=== PATIENT | female | born 1965 | race Caucasian/White ===

== ENCOUNTER 2023-07-18 09:57 | Outpatient (OUT) | payer OTHER, SELFPAY ==
[2023-07-18 10:58] LABS: Bilirubin Urine NEGATIVE (NEGATIVE); Blood Urine NEGATIVE (NEGATIVE); Clarity Urine CLEAR (CLEAR); Color Urine YELLOW (YELLOW); Glucose Urine UA NEGATIVE (NEGATIVE); Ketones Urine NEGATIVE (NEGATIVE); Leukocyte Esterase Urine NEGATIVE (NEGATIVE); Nitrite Urine NEGATIVE (NEGATIVE); Protein Urine NEGATIVE (NEG/TRACE); Urobilinogen Urine 0.2 EU/dL (0.2-1.0)
[2023-07-18 11:00] LABS: Creatinine Urine Random 195.04 mg/dL (20.00-300.00); Protein Creatinine Ratio Urine 0.14
[2023-07-18 11:06] LABS: Albumin Level 3.6 g/dL (3.4-5.0); Anion Gap 12.9; BUN Creatinine Ratio 16.7; Calcium 8.9 mg/dL (8.5-10.1); Carbon Dioxide 27.7 mmol/L (21.0-32.0); Chloride 102 mmol/L (98-107); Estimated GFR (African America 59 (>=60); Estimated GFR (Non-African Ame 49 (>=60); Glucose 96 mg/dL (74-106); Phosphorus 3.8 mg/dL (2.6-4.7); Potassium 3.6 mmol/L (3.5-5.1); Sodium 139 mmol/L (136-145)
== END 2023-07-18 09:58 | disposition home or self-care (01) ==
DX: I13.10 Hypertensive heart and chronic kidney disease without heart failure, with stage 1 through stage 4 chronic kidney disease, or unspecified chronic kidney disease (principal)
CPT/HCPCS: 36415; 80069; 81003; 82570; 84156

== ENCOUNTER 2023-11-08 13:43 | Outpatient (OUT) | payer OTHER, SELFPAY ==
--- NOTE | 2023-11-08 13:48 | XR_ITS ---
[facility] [id number] Patient Name: ERNST VEGA MRN: [id number] date: 1965 Sex: F Assigned Patient Location: [facility] Current Patient Location: Accession/Order Number: [id number] Exam Date: 11/08/2023 13:38 Report Date: 11/09/2023 08:52 At the request of: NON-STAFF PHYSICIAN Procedure: XR lumbar spine 6V w bending EXAMINATION: XR lumbar spine 6V w bending HISTORY: Acute Right Sided Back Pain ; exacerbation of chronic low back pain and right hip pain COMPARISON: CT L-spine 04/13/2019 FINDINGS: BONES: Moderate right convex curvature of lumbar spine. Mild grade 1 retrolisthesis of L2 on 3 and mild grade 1 anterior listhesis of L4 on 5, with both increasing slightly during flexion. Moderate degenerative facet arthropathy L3-4 through L5-S1. DISC SPACES: Marked narrowing L2-3. PARASPINOUS: Negative. No paraspinous abnormality is seen. OTHER: Negative. XR/XR lumbar spine 6V w bending IMPRESSION: 1. Moderate-marked degenerative changes of lumbar spine; suspect slight progression compared to prior study. Consider MRI for further evaluation. Electronically authenticated by: JOURDAN YAO Date: 11/09/2023 08:52
== END 2023-11-08 13:44 | disposition home or self-care (01) ==
LOC: RAD 13:43
DX: M54.41 Lumbago with sciatica, right side (principal); M81.0 Age-related osteoporosis without current pathological fracture; M51.36 Other intervertebral disc degeneration, lumbar region
CPT/HCPCS: 72114

== ENCOUNTER 2024-09-25 07:18 | Outpatient (OUT) | payer MEDICARE, OTHER, SELFPAY ==
--- OUTSIDE RECORDS SUMMARY | 2024-09-25 07:25 | XMS_ITS | CCD ---
Author Organization [facility] Care Team Providers Care Junior Systems Administrator Name Role Phone KAYE HERMOSILLO Attending Unavailable KAYE HERMOSILLO Primary Care Unavailable KAYE HERMOSILLO Admitting Unavailable DR JOURDAN YAO Consulting Unavailable KAYE HERMOSILLO Consulting Unavailable DO Gregg Alanis Attending Provider KAYE HERMOSILLO Primary Care Physician [phone] Josephine Lopez Unavailable Unavailable MD Phill Yates Attending Provider MD Hugo Yates Attending Provider NICK Hermosillo-Freda Biggs Primary Care Provider Bindu Kelly Unavailable Unavailable Sabrina Loyd MD Primary Care Provider KAYE HERMOSILLO Admitting Unavailable KAYE HERMOSILLO Attending Unavailable KAYE HERMOSILLO Referring Unavailable Brown, Los A Admitting Unavailable Brown, Los A Attending Unavailable Brown, Los A Referring Unavailable Brown, Los A Admitting Unavailable Brown, Los A Attending Unavailable Brown, Los A Referring Unavailable Brown, Los A Admitting Unavailable Brown, Los A Attending Unavailable Brown, Los A Referring Unavailable Brown, Los A Admitting Unavailable Brown, Los A Attending Unavailable Brown, Los A Referring Unavailable KAYE HERMOSILLO Admitting Unavailable KAYE HERMOSILLO Attending Unavailable KAYE HERMOSILLO Referring Unavailable NICK Hermosillo-C Kaye Primary Care Provider MD Roderick Betts Attending Provider MD Miguel Trinidad Attending Provider Miguel Trinidad Admitting Unavailable Miguel Trinidad Attending Unavailable Kaye Hermosillo Primary Care Unavailable Kaye Hermosillo Primary Care Unavailable Roderick Betts Admitting Unavailable Roderick Betts Attending Unavailable Roderick Betts Admitting Unavailable Roderick Betts Attending Unavailable Kaye Hermosillo Primary Care Unavailable Miguel Trinidad Admitting Unavailable Miguel Trinidad Attending Unavailable Kaye Hermosillo Primary Care Unavailable KAYE HERMOSILLO Attending Unavailable LOS GONZALEZ Referring Unavailable [place] GONZALEZ Referring Unavailable [place] GONZALEZ Attending Unavailable KAYE HERMOSILLO Attending Unavailable KAYE HERMOSILLO Attending Unavailable KAYE HERMOSILLO Attending Unavailable [place] G[place]Z Referring Unavailable [place] GONZALEZ A Attending Unavailable BROWNLOS A Referring Unavailable BROWNLOS A Attending Unavailable Allergies Allergy Classification Reported Allergen(s) Allergy Type Date of Onset Reaction(s) Facility (2 sources) Codeine; Translations: [codeine] Drug Allergy 5 [facility] Repository (11 sources) Codeine; Translations: [codeine] Drug Allergy 3 GI intolerance [facility] (9 sources) Iodinated Contrast Media Propensity to adverse reactions 3 [facility] Healthcare Work Phone: (1 source) No Known Medication Allergies; Translations: [No Known Medication Allergies] Propensity to adverse reactions (disorder) [facility] Repository Medications Current Medications Medication Drug Class(es) Dates Sig (Normalized) Sig (Original) acetaminophen 325 mg / oxyCODONE hydrochloride 5 mg oral tablet (6 sources) Opioid Agonist Start: 07-19-2023 End: 08-29-2023 Percocet 5 mg-325 mg oral tablet See Instructions, 40 tab(s), Refill(s) 0, 1-2 tab(s) Oral q4hr, [facility] #[id number], 160, cm, 07/06/23 11:00:00 EST, Height/Length Dosing, 86, kg, 07/06/23 11:00:00 EST, Weight Dosing Start Date: 07/19/23 Status: Ordered Start: 09-28-2022 Percocet 5 mg- 325 mg oral tablet See Instructions, 40 tab(s), Refill(s) 0, 1-2 tab(s) Oral q4hr, [facility] #[id number], 160, cm, 09/21/22 5:43:00 EST, Height/Length Dosing, 87.2, kg, 09/21/22 5:43:00 EST, Weight Dosing Start Date: 09/28/22 Status: Ordered amLODIPine 5 mg oral tablet (20 sources) Dihydropyridine Calcium Channel Chantelle Start: 02-22-2024 Amlodipine Active MG PO February 22, 2024 12:00am Start: 07-06-2023 take 2 tablets by mo uth once daily amLODIPine 2.5 mg Tab 5 mg = 2 tab(s), Oral, Daily, Refills(s) 0, High blood pressure Start Date: 07/06/23 Status: Ordered Start: 05-17-2023 End: 09-10-2025 take 1 tablet by mouth once daily amLODIPine (Norvasc) 5 MG tablet Indications: Essential hypertension (CMS/HCC) Take 1 tablet (5 mg) by mouth Daily 90 tablet 3 09/10/2024 09/10/2025 Active aspirin 81 mg delayed release oral tablet (20 sources) Platelet Aggregation Inhibitor, Nonsteroidal Anti-inflammatory Drug Start: 02-22-2024 Aspirin (Adult Lo w Dose Aspirin) 81 mg tablet,delayed release (DR/EC) Active 81 MG PO Daily February 22, 2024 12:00am Start: 05-15-2023 take 1 tablet by carlos alberto once daily aspirin 81 mg Oral EC Tab 81 mg = 1 tab(s), Oral, Daily, Refills(s) 0, Prophylaxis Start Date: 05/15/23 Status: Ordered ASPIRIN 81 PO Ta ke by mouth. Active ASPIRIN 81 PO Ta ke by mouth. 0 Active atorvastatin 40 mg oral tablet (20 sources) HMG-CoA Reductase Inhibitor Start: 02-22-2024 Atorvastatin Active MG PO February 22, 2024 12:00am Start: 09-20-2022 End: 02-12-2025 take 1 tablet by mouth in the morning atorvastatin (Lipitor) 40 MG tablet Indications: Mixed hyperlipidemia (CMS/HCC) , Pure hypercholesterolemia (CMS/HCC) , Screening for lipid disorders , Screening for heart disease Take 1 tablet (40 mg) by mouth in the morning. 90 tablet 3 02/13/2024 02/12/2025 Active celecoxib 100 mg oral capsule (7 sources) Nonsteroidal Anti-inflammatory Drug Start: 07-19-2023 take 1 capsule by mouth twice daily as needed for pain CeleBREX 100 mg Cap 100 mg = 1 cap(s), Oral, BID, PRN for pain, # 60 cap(s), Refills(s) 2, Pharmacy: [facility] #[id number], 160, cm, 07/06/23 11:00:00 EST, Height/Length Dosing, 86, kg, 07/06/23 11:00:00 EST, Weight Dosing Start Date: 07/19/23 Status: Ordered Start: 09-28-2022 take 1 capsule by [facility] twice daily as needed for pain CeleBREX 100 mg Cap 100 mg = 1 cap(s), Oral, BID, PRN for pain, # 60 cap(s), Refills(s) 0, Pharmacy: [facility] #[id number], 160, cm, 09/21/22 5:43:00 EST, Height/Length Dosing, 87.2, kg, 09/21/22 5:43:00 EST, Weight Dosing Start Date: 09/28/22 Status: Ordered cephalexin 500 mg oral capsule (7 sources) Cephalosporin Antibacterial Start: 08-06-2024 cephalexin (Keflex) 500 MG capsule Indications: History of right shoulder replacement Take 4 pills 30-60 mins before dental appointment with food 4 capsule 3 08/06/2024 Active Start: 07-19-2023 End: 07-26-2023 take 1 capsule by mouth every eight hours Keflex 500 mg Cap 500 mg = 1 cap(s), Oral, q8hr, X 7 day(s), # 21 cap(s), Refills(s) 0, Pharmacy: [facility] #[id number], 160, cm, 07/06/23 11:00:00 EST, Height/Length Dosing, 86, kg, 07/06/23 11:00:00 EST, Weight Dosing Start Date: 07/19/23 Stop Date: 07/26/23 Status: Ordered Start: 09-28-2022 End: 10-05-2022 take 1 capsule by mouth every eight hours Keflex 500 mg Cap 500 mg = 1 cap(s), Oral, q8hr, X 7 day(s), # 21 cap(s), Refills(s) 0, Pharmacy: [facility] #[id number], 160, cm, 09/21/22 5:43:00 EST, Height/Length Dosing, 87.2, kg, 09/21/22 5:43:00 EST, Weight Dosing Start Date: 09/28/22 Stop Date: 10/05/22 Status: Ordered docusate sodium 100 mg oral capsule (6 sources) Start: 07-19-2023 End: 08-29-2023 take 1 capsule by mouth twice daily as needed for constipation Colace 100 mg Cap 100 mg = 1 cap(s), Oral, BID, PRN for constipation, # 20 cap(s), Refills(s) 0, Pharmacy: [facility] #[id number], 160, cm, 07/06/23 11:00:00 EST, Height/Length Dosing, 86, kg, 07/06/23 11:00:00 EST, Weight Dosing Start Date: 07/19/23 Status: Ordered Start: 09-28-2022 take 1 capsule by [facility] twice daily as needed for constipation Colace 100 mg Cap 100 mg = 1 cap(s), Oral, BID, PRN for constipation, # 20 cap(s), Refills(s) 0, Pharmacy: [facility] #[id number], 160, cm, 09/21/22 5:43:00 EST, Height/Length Dosing, 87.2, kg, 09/21/22 5:43:00 EST, Weight Dosing Start Date: 09/28/22 Status: Ordered FLUoxetine 20 mg oral capsule (20 sources) Serotonin Reuptake Inhibitor Start: 02-22-2024 take 30 mg by mouth once daily Fluoxetine Active 30 MG PO Daily February 22, 2024 12:00am Start: 02-22-2024 Fluoxetine Act kerline MG PO February 22, 2024 12:00am Start: 10-19-2023 End: 09-10-2025 take 1 capsule by mouth once daily FLUoxetine (PROzac) 10 MG capsule Indications: Panic disorder (CMS/HCC) , Mild episode of recurrent major depressive disorder (HCC) (CMS/HCC) Take 1 capsule (10 mg) by mouth Daily 90 capsule 3 09/10/2024 09/10/2025 Active Start: 10-19-2023 End: 09-10-2025 take 1 capsule by mouth once daily FLUoxetine (PROzac) 20 MG capsule Indications: Panic disorder (CMS/HCC) , Mild episode of recurrent major depressive disorder (HCC) (CMS/HCC) Take 1 capsule (20 mg) by mouth Daily 90 capsule 3 09/10/2024 09/10/2025 Active Start: 06-07-2023 take 1 capsule by mo [facility] in the morning FLUoxetine (PROzac) 20 MG capsule Indications: Panic disorder (CMS/HCC) , Mild episode of recurrent major depressive disorder (HCC) (CMS/HCC) Take 1 capsule (20 mg) by mouth in the morning. 30 capsule 0 06/07/2023 Active Start: 05-15-2023 End: 10-03-2023 take 1 capsule by mouth once daily FLUoxetine 10 mg Cap 10 mg = 1 cap(s), Oral, Daily, Refills(s) 0, Anxiety Start Date: 05/15/23 Status: Ordered Start: 09-20-2022 take 1 capsule by mo uth once daily FLUoxetine 20 mg Cap 20 mg = 1 cap(s), Oral, Daily, Refills(s) 0, Anxiety Start Date: 09/20/22 Status: Ordered hydroCHLOROthiazide 25 mg oral tablet (1 source) Thiazide Diuretic Start: 09-20-2022 take 1 tablet by mouth once daily hydrochlorothiazide 25 mg Tab 25 mg = 1 tab(s), Oral, Daily, Refills(s) 0, High blood pressure Start Date: 09/20/22 Status: Ordered hydrOXYzine pamoate 25 mg oral capsule (3 sources) Antihistamine Start: 08-02-2023 take 1 capsule by mouth once daily at bedtime as needed for anxiety hydrOXYzine pamoate (Vistaril) 25 MG capsule Indications: Panic disorder (CMS/HCC) , Anxiety , PTSD (post-traumatic stress disorder) (CMS/HCC) TAKE 1 CAPSULE BY MOUTH ONCE EVERYDAY AT BEDTIME NEEDED FOR ANXIETY 30 capsule 0 08/02/2023 Active 24 hr metoprolol succinate 25 mg extended release oral tablet (20 sources) beta-Adrenergic Chantelle Start: 02-22-2024 Metoprolol Succinate Active MG PO February 22, 2024 12:00am Start: 01-02-2024 End: 04-03-2024 take 1 tablet by mouth once daily metoprolol succinate XL (Toprol-XL) 25 MG 24 hr tablet Indications: Essential hypertension (CMS/HCC) TAKE 1 TABLET BY MOUTH ONCE A DAY *DO NOT CRUSH OR CHEW* 90 tablet 1 04/03/2024 Active Start: 09-05-2023 End: 10-05-2023 take 1 tablet by mouth every twenty-four hours in the morning metoprolol succinate XL (Toprol-XL) 25 MG 24 hr tablet Indications: Essential hypertension (CMS/HCC) Take 1 tablet (25 mg) by mouth in the morning. Do not crush or chew.. 30 tablet 0 09/05/2023 10/05/2023 Active Start: 08-02-2023 End: 09-02-2023 take 1 tablet by mouth every twenty-four hours in the morning metoprolol succinate XL (Toprol-XL) 25 MG 24 hr tablet Indications: Essential hypertension (CMS/HCC) TAKE 1 TABLET (25 MG) BY MOUTH IN THE MORNING . DO NOT CRUSH OR CHEW 30 tablet 0 08/02/2023 09/02/2023 Discontinued (Reorder) Start: 05-15-2023 take 1 tablet by carlos alberto th once daily metoprolol 25 mg ER Tab 25 mg = 1 tab(s), Oral, Daily, Refills(s) 0, High blood pressure Start Date: 05/15/23 Status: Ordered ondansetron 4 mg oral tablet (1 source) Serotonin-3 Receptor Antagonist Start: 09-28-2022 take 1 tablet by mouth every eight hours as needed for nausea Zofran ODT 4 mg Tab 4 mg = 1 tab(s), Oral, q8hr, PRN Nausea/Vomiting, # 30 tab(s), Refills(s) 0, Pharmacy: [facility] #[id number], 160, cm, 09/21/22 5:43:00 EST, Height/Length Dosing, 87.2, kg, 09/21/22 5:43:00 EST, Weight Dosing Start Date: 09/28/22 Status: Ordered oxaprozin 600 mg oral tablet (1 source) Nonsteroidal Anti-inflammatory Drug Start: 05-15-2023 take 1 tablet by mouth twice daily oxaprozin 600 mg Tab 600 mg = 1 tab(s), Oral, BID, Refills(s) 0, Pain Start Date: 05/15/23 Status: Ordered spironolactone 25 mg oral tablet (1 source) Aldosterone Antagonist Start: 05-15-2023 take 1 tablet by mouth once daily spironolactone 25 mg Tab 25 mg = 1 tab(s), Oral, Daily, Refills(s) 0, High blood pressure Start Date: 05/15/23 Status: Ordered tiZANidine 4 mg oral tablet (15 sources) Central alpha-2 Adrenergic Agonist Start: 02-22-2024 Tizanidine Active MG PO February 22, 2024 12:00am Start: 10-05-2023 take 1 tablet by carlos alberto th at bedtime tiZANidine (Zanaflex) 4 MG tablet Take 4 mg by mouth at bedtime 10/05/2023 Active traMADol hydrochloride 50 mg oral tablet (16 sources) Opioid Agonist Start: 02-22-2024 Tramadol Activ e MG PO February 22, 2024 12:00am Start: 10-12-2023 traMADol (Ultr am) 50 MG tablet 10/12/2023 Active Start: 05-15-2023 tramadol 1 tab , Oral, PRN as needed for pain, Refills(s) 0 Start Date: 05/15/23 Status: Ordered Completed/Discontinued Medications Medication Drug Class(es) Dates Sig (Normalized) Sig (Original) LORazepam 1 mg oral tablet (14 sources) Benzodiazepine Start: 02-22-2024 End: 03-19-2024 Lorazepam Discontinued MG PO February 22, 2024 12:00am March 19, 2024 6:53am Start: 12-08-2023 take 1 tablet by mouth once LO Razepam (Ativan) 0.5 MG tablet Indications: Cervical stenosis of spinal canal Take 1 tablet (0.5 mg) by mouth 1 time for 1 dose Take 30 minutes before MRI 1 tablet 12/08/2023 Active Problems Active Problems Problem Classification Problem Date Documented Date Episodic/Chronic Acquired foot deformities (9 sources) Acquired hallux valgus; Translations: [Hallux valgus (acquired), unspecified foot] Onset: 1 03-21-2023 Chronic Adjustment disorders (9 sources) Adjustment disorder with anxious mood; Translations: [Adjustment disorder with anxiety] Onset: 8 03-21-2023 Chronic Anxiety disorders (19 sources) Anxiety; Translations: [Anxiety disorder, unspecified] Onset: 8 09-20-2022 Chronic Disorders of lipid metabolism (20 sources) Hyperlipidemia; Translations: [Hyperlipidemia, unspecified] Onset: 7 03-21-2023 Chronic Essential hypertension (20 sources) Hypertensive disorder; Translations: [Essential hypertension] Onset: 0 09-20-2022 Chronic Malaise and fatigue (9 sources) Fatigue; Translations: [Chronic fatigue, unspecified] Onset: 7 03-21-2023 Chronic Miscellaneous mental health disorders (11 sources) Primary insomnia; Translations: [Primary insomnia] Onset: 7 03-21-2023 Chronic Mood disorders (11 sources) Recurrent major depressive episodes, mild ; Translations: [Major depressive disorder, recurrent, mild] Onset: 3 03-21-2023 Chronic Osteoarthritis (20 sources) Arthritis; Translations: [Unspecified osteoarthritis, unspecified site] Onset: 8 Resolved: 3 12-24-2022 Chronic Osteoporosis (6 sources) Osteoporosis; Translations: [Age-related osteoporosis without current pathological fracture] Onset: 4 11-02-2023 Chronic Other bone disease and musculoskeletal deformities (1 source) Other specified disorders of bone density and structure, left forearm; Translations: [Other specified disorders of bone density and structure, left forearm] Onset: 4 Episodic Other congenital anomalies (9 sources) Congenital valgus deformity of foot; Translations: [Other congenital valgus deformities of feet] Onset: 3 03-21-2023 Chronic Other congenital anomalies (9 sources) Talipes planus; Translations: [Other congenital valgus deformities of feet] Onset: 1 03-21-2023 Chronic Other connective tissue disease (1 source) Nontraumatic complete rupture of rotator cuff of left shoulder; Translations: [Complete rotator cuff tear or rupture of left shoulder, not specified as traumatic] Onset: 3 Episodic Other connective tissue disease (9 sources) Trochanteric bursitis; Translations: [Trochanteric bursitis, right hip] 02-22-2024 Episodic Other connective tissue disease (11 sources) Trochanteric bursitis, right hip; Translations: [Enthesopathy of hip region] 02-22-2024 Episodic Other diseases of kidney and ureters (4 sources) Kidney disease 07-06-2023 Episodic Other nervous system disorders (16 sources) Chronic pain; Translations: [Other chronic pain] Onset: 7 03-21-2023 Chronic Other nervous system disorders (12 sources) Other chronic pain; Translations: [Other chronic pain] Onset: 4 03-04-2024 Chronic Other non-traumatic joint disorders (1 source) Pain in left shoulder; Translations: [PAIN IN LEFT SHOULDER] Onset: 2 Episodic Other non-traumatic joint disorders (6 sources) Shoulder pain 09-20-2022 Episodic Other non-traumatic joint disorders (1 source) Pain in right hip; Translations: [Pain in right hip] Onset: 4 Episodic Other non-traumatic joint disorders (2 sources) Pain of left shoulder joint; Translations: [Pain in left shoulder] 08-06-2024 Episodic Other nutritional; endocrine; and metabolic disorders (9 sources) Obese class I; Translations: [Obesity, unspecified] Onset: 1 03-21-2023 Chronic Other nutritional; endocrine; and metabolic disorders (9 sources) Obesity; Translations: [Obesity, unspecified] Onset: 2 03-21-2023 Chronic Other nutritional; endocrine; and metabolic disorders (5 sources) History of hypercholesterolemia 05-15-2023 Episodic Other screening for suspected conditions (not mental disorders or infectious disease) (7 sources) Encounter for screening mammogram for malignant neoplasm of breast; Translations: [Patient encounter status] Onset: 2 09-10-2024 Episodic Residual codes; unclassified (6 sources) Postmenopausal state 09-20-2022 Episodic Rheumatoid arthritis and related disease (13 sources) Rheumatoid arthritis; Translations: [Rheumatoid arthritis, unspecified] Onset: 1 03-21-2023 Chronic Spondylosis; intervertebral disc disorders; other back problems (19 sources) Disorder of joint of spine; Translations: [Other spondylosis with radiculopathy, lumbar region] 03-04-2024 Chronic Spondylosis; intervertebral disc disorders; other back problems (20 sources) Lumbar radiculopathy; Translations: [Radiculopathy, lumbar region] Onset: 6 12-24-2022 Episodic Unclassified (9 sources) Patient on antidepressant monitoring plan Onset: 3 07-05-2023 Unclassified (9 sources) Baseline PHQ-9 Onset: 07-05-2023 Past or Other Problems Problem Classification Problem Date Documented Date Episodic/Chronic Acquired foot deformities (9 sources) Bunion; Translations: [Bunion of unspecified foot] Onset: 06-29-2021 03-21-2023 Episodic Coma; stupor; and brain damage (9 sources) Drowsy; Translations: [Somnolence] Onset: 05-22-2017 03-21-2023 Episodic Conditions associated with dizziness or vertigo (9 sources) Dizziness; Translations: [Dizziness and giddiness] Onset: 05-22-2017 03-21-2023 Episodic Noninfectious gastroenteritis (9 sources) Gastroenteritis; Translations: [Noninfective gastroenteritis and colitis, unspecified] Onset: 03-22-2016 03-21-2023 Episodic Other connective tissue disease (9 sources) Tear of right rotator cuff; Translations: [Unspecified rotator cuff tear or rupture of right shoulder, not specified as traumatic] Onset: 12-24-2022 12-24-2022 Episodic Other connective tissue disease (20 sources) Tear of left rotator cuff; Translations: [Unspecified rotator cuff tear or rupture of left shoulder, not specified as traumatic] Onset: 03-13-2022 Resolved: 12-24-2022 03-21-2023 Episodic Other connective tissue disease (18 sources) Impingement syndrome of left shoulder region; Translations: [Impingement syndrome of left shoulder] Onset: 05-29-2017 Resolved: 12-24-2022 03-21-2023 Episodic Other connective tissue disease (9 sources) Full thickness rotator cuff tear; Translations: [Complete rotator cuff tear or rupture of unspecified shoulder, not specified as traumatic] Onset: 12-24-2022 Resolved: 12-24-2022 12-24-2022 Episodic Other lower respiratory disease (9 sources) Snoring; Translations: [Snoring] Onset: 05-22-2017 03-21-2023 Episodic Other non-traumatic joint disorders (13 sources) Pain in right shoulder; Translations: [Pain in joint, shoulder region] Onset: 12-06-2021 Episodic Other non-traumatic joint disorders (9 sources) Shoulder joint pain; Translations: [Pain in unspecified shoulder] Onset: 05-29-2017 03-21-2023 Episodic Sprains and strains (9 sources) Injury of superior glenoid labrum of shoulder joint; Translations: [Superior glenoid labrum lesion of unspecified shoulder, initial encounter] Onset: 12-24-2022 Resolved: 12-24-2022 12-24-2022 Episodic Results Test Name Value Interpretation Reference Range Facility XR Shoulder - left 2 Viewson 08-07-2024 Imaging Result: Two views, AP/axillary bilateral shoulder(s) taken today and saved to the permanent medical record are reviewed. Prosthesis is unchanged in position and alignment. No signs of prosthetic wear or loosening. No periprosthetic fractures. [facility] XR Shoulder - right 2 Viewso n 08-07-2024 Imaging Result: Two views, AP/axillary bilateral shoulder(s) taken today and saved to the permanent medical record are reviewed. Prosthesis is unchanged in position and alignment. No signs of prosthetic wear or loosening. No periprosthetic fractures. [facility] No Panel Informationon 08-06 Radiology Study observation (narrative) [facility] XR hip RT min 2V(w/wo pelvis )*on 03-26-2024 XR hip RT min 2V(w/wo pelvis)* [facility] [address] [place] [address] XRay Report Signed Patient: Ernst Vega MR#: [id number] : 1965 Acct:[id number] Age/Sex: 58 / F ADM Date: 03/26/24 Loc: [facility] Room: Type: [facility] Attending Dr: Miguel Trinidad MD Copies to: Miguel Trinidad MD Ordering Provider: Miguel Trinidad MD Date of Service: 03/26/24 XR/XR hip RT min 2V(w/wo pelvis)*: G89.29 - Other chronic pain RIGHT HIP - 2 views: CLINICAL HISTORY: Right hip pain for 2 years. COMPARISON: None FINDINGS: Mild degenerative changes of the hips without acute bony process. Additional degenerative changes are seen involving the visualized lower lumbar spine and SI joints. XR/XR hip RT min 2V(w/wo pelvis)* IMPRESSION: MILD DEGENERATIVE CHANGES OF THE HIPS WITHOUT ACUTE BONY PROCESS.. Impression dictated by: Malick Hollis Jr., D.O.03/26/2024 2:26 PM Dictation Location: [facility] Transcribed By: CATALINA 03/26/24 1426 Dictated By: Malick Hollis Jr, DO 03/26/24 1425 Signed By: 03/26/24 1426 Normal [facility] XR cerv spine AP/LAT/FLX/EXT on 02-29-2024 XR cerv spine AP/LAT/FLX/EXT [facility] [address] [place] [address] XRay Report Signed Patient: Ernst Vega MR#: [id number] : 1965 Acct:[id number] Age/Sex: 58 / F ADM Date: 02/29/24 Loc: XD Room: Type: [facility] Attending Dr: Roderick Betts MD Copies to: Roderick Betts MD Ordering Provider: Roderick Betts MD Date of Service: 02/29/24 XR/XR cerv spine AP/LAT/FLX/EXT: M54.2 - Cervicalgia CERVICAL SPINE 4 views: CLINICAL HISTORY: Neck pain and stiffness for 2 years getting worse. COMPARISON: None FINDINGS: Bones are grossly demineralized. Moderate spondylosis C5-C7 with endplate and facet joint degenerative changes. No pathological motion on flexion or extension views. No prevertebral soft tissue swelling. Visualized lung apices are clear. XR/XR cerv spine AP/LAT/FLX/EXT IMPRESSION: MODERATE SPONDYLOSIS C5-C7. Impression dictated by: Malick Hollis Jr., D.O.02/29/2024 3:05 PM Dictation Location: [place] [address] Transcribed By: CATALINA 02/29/24 1505 Dictated By: Malick Hollis Jr, DO 02/29/24 1504 Signed By: 02/29/24 1505 Normal [facility] MRI Spine Cervical w/o Contr nehemias 12-15-2023 MRI Spine Cervical w/o Contrast Exam Date/Time: 12/12/2023 18:03 EDT Reason for Exam: M48.02 Report IMPRESSION: Multilevel degenerative changes cervical spine, worst at C5-C6 and C6-C7, as discussed. EXAMINATION: MRI Spine Cervical w/o Contrast HISTORY: Hand numbness and tingling for one week. Neck pain. Denies prior neck surgery. TECHNIQUE: Routine cervical spine MR protocol without gadolinium. COMPARISON: None. RESULT: CERVICAL: Counting reference: Craniocervical junction. Anatomic Variants: None. Alignment: Straightening of the cervical lordosis. Minimal retrolisthesis of C6 on C7. Minimal anterolisthesis of C7 on T1. Craniocervical junction: Maintained with degenerative changes. Cord: The cervical spinal cord is within normal limits of signal intensity and morphology. Bone marrow signal/fracture: No evidence for acute or chronic fracture. No destructive osseous process. Cervical soft tissues: Subcentimeter nodule right thyroid, not requiring follow-up per criteria. C2-C3: No significant canal or foraminal narrowing. C3-C4: Disc bulge. Facet/uncovertebral degenerative changes. Mild left foraminal narrowing without significant canal or right foraminal narrowing. C4-C5: Broad-based disc bulge. Endplate osteophytes. Facet/uncovertebral degenerative changes. Moderate left and mild to moderate right foraminal narrowing without significant canal narrowing. C5-C6: Broad-based disc bulge, asymmetric to the left. Endplate osteophytes. Report Facet/uncovertebral degenerative changes. Severe canal narrowing with severe bilateral foraminal narrowing, worse on the left. Abutment/flattening of the cord without cord signal abnormality. C6-C7: Broad-based disc bulge. Endplate osteophytes. Facet/uncovertebral degenerative changes. Severe canal narrowing with severe bilateral foraminal narrowing. Abutment of the cord without cord signal abnormality. C7-T1: Facet/intravertebral degenerative changes without significant canal or foraminal narrowing. Upper thoracic spine: Visualized upper thoracic canal and foramina without significant narrowing. Ordering Provider: , FINAL REPORT Dictated: 12/15/2023 2:12 pm Robin Payan MD. Signed (Electronic Signature): 12/15/2023 2:12 pm Signed by: Robin Payan MD Transcribed by: UMAIR Technologist: DONAVON Technical Comments None Normal [facility] Consent for Treatmenton 11-28 Consent for Treatment [id number] Normal [facility] RAD - MRI Screening Formon 0 12-12-2023 RAD - MRI Screening Form [id number] Normal [facility] Physician Orderon 12-11-2023 Physician Order [id number]#[id number] Normal [facility] MRI Spine Lumbar w/o Contras ton 12-07-2023 MRI Spine Lumbar w/o Contrast Exam Date/Time: 12/04/2023 18:16 EDT Reason for Exam: M54.41 M81.0 M54.16 M54.36 Report IMPRESSION: DEGENERATIVE CHANGES OF THE LUMBAR SPINE DETAILED. EXAM: MRI of the lumbar spine without contrast History: Low back pain with right-sided sciatica Technique: Multiplanar multisequence MRI of the lumbar spine was obtained without intravenous contrast. Comparison: None available Findings: Localizer images demonstrate cervical spine degenerative changes with suspected high-grade spinal canal stenosis, findings that would be better evaluated with MRI of the cervical spine without contrast. The conus medullaris ends normally. The alignment of the lumbar spine is anatomic. The vertebral body heights are well maintained. There is no aggressive bone marrow signal abnormality. Disc desiccation throughout the lumbar spine. Moderate intervertebral disc height loss at L2-L3 and L4-L5 and mild intervertebral disc height loss elsewhere throughout the lumbar spine. L1-L2: Small disc bulge. Mild facet arthropathy. Mild bilateral neuroforaminal stenosis. Mild spinal canal stenosis. L2-L3: Approximate 3 mm retrolisthesis of L2 on L3. Small disc bulge. Moderate to advanced facet arthropathy. Moderate right and moderate to severe left neuroforaminal stenosis. Mild spinal canal stenosis. L3-L4: Small disc bulge. Mild facet arthropathy. Severe right and mild left neuroforaminal stenosis. No spinal canal stenosis. L4-L5: Minimal anterolisthesis of L4 on L5 secondary to advanced facet arthropathy. Small disc bulge. Ligamentum flavum thickening. Severe spinal canal stenosis. Moderate right and mild left neuroforaminal stenosis. L5-S1: Small disc bulge with tiny central annular fissure. Advanced degenerative changes. Mild bilateral neuroforaminal stenosis. Mild spinal canal stenosis. Visualized paravertebral soft tissues appear within normal limits as visualized. Report Ordering Provider: , FINAL REPORT Dictated: 12/07/2023 2:51 pm Todd Aguilar DO Signed (Electronic Signature): 12/07/2023 2:51 pm Signed by: Todd Aguilar DO Transcribed by: UMAIR Technologist: DONAVON Technical Comments None Normal [facility] Consent for Treatmenton 05- Consent for Treatment [id number]#1.00TIFF Normal [facility] RAD - MRI Screening Formon 0 12-04-2023 RAD - MRI Screening Form [id number]#1.00TIFF [facility] Physician Orderon 11-30-2023 Physician Order [id number]#1.00TIFF [facility] XR Shoulder - right 2 Viewso n 09-04-2023 Imaging Result: Two views, AP/axillary, right shoulder taken today and saved to the permanent medical record are reviewed. Prosthesis is unchanged in position and alignment. No signs of prosthetic wear or loosening. No periprosthetic fractures. [facility] XR Shoulder - right 2 Viewso n 08-29-2023 Radiology Study observation (narrative) [facility] IntraOperative Documentson 0 08-03-2023 IntraOperative Documents [id number]#1.00TIFF [facility] Main OR Intraoperative Recor don 07-25-2023 Main OR Intraoperative Record IntraOp Document Type FT Summary Primary Physician: Los Gonzalez DO Finalized Date/Time: 07/25/23 10:46:34 Pt. Name: ERNST VEGA/Sex: 1965 Female Med Rec #: [id number] Physician: Los Gonzalez DO Financial #: [id number] Pt. Type: A Room/Bed: Admit/Disch: 07/19/23 06:25:38 - 07/19/23 13:15:00 Institution: Case Times FT Entry 1 Patient Times In Room 07/19/23 08:50:00 Out Room 07/19/23 10:56:00 Procedure Times Start 07/19/23 09:35:00 Stop 07/19/23 10:46:00 Anesthesia Times Start 07/19/23 08:50:00 Stop 07/19/23 10:56:00 Block Timeout w/ 07/19/23 08:35:00 Anesthesia Last Modified By: Tiana SILVESTRE, Jayne Steele 07/19/23 10:56:43 General Comments: BLOCK DONE BY DR. BECKETT AT 0835, ASSISTED BY Jean HARRIS RN; HR= 64, O2= 98%; TRANSPORTED DIRECTLY TO OR AFTER THE BLOCK WITH SIDE RAILS UP -Jean HARRIS RN 07/25/23 Chart opened to review and send charges [facility] Case Attendance FT Entry 1 Entry 2 Entry 3 Case Attendee Natalee JOHNSON, Arthur Gonzalez DO, Los Lynn OFFSET PRINTING OPERATOR, Iván Role Performed Anesthesiologist Surgeon - Primary OFFSET PRINTING OPERATOR/SA Office Administration Time In 07/19/23 08:50:00 07/19/23 08:50:00 07/19/23 08:50:00 Time Out 07/19/23 10:56:00 07/19/23 10:56:00 07/19/23 10:56:00 Procedure SHOULDER TOTAL SHOULDER TOTAL SHOULDER TOTAL ARTHROPLASTY(Right) ARTHROPLASTY(Right) ARTHROPLASTY(Right) Comments DR. BECKETT SUPERVISING Last Modified By: Tiana RN, Jayne Harris RN, Jayne Harris RN, Jayne Steele 07/19/23 Shakira Steele 07/19/23 Shakira P 07/19/23 10:56:44 10:56:44 10:56:44 Entry 4 Entry 5 Entry 6 Case Attendee Tiana SILVESTRE, Janye Trinh OFFSET PRINTING OPERATOR, Anusha Blackwell Role Performed Assembler Corncob Pipes - Primary Staff - Other Staff - Other Time In 07/19/23 08:50:00 07/19/23 08:50:00 07/19/23 08:50:00 Time Out 07/19/23 10:56:00 07/19/23 10:56:00 07/19/23 10:56:00 Procedure SHOULDER TOTAL SHOULDER TOTAL SHOULDER TOTAL ARTHROPLASTY(Right) ARTHROPLASTY(Right) ARTHROPLASTY(Right) Comments 2ND SCRUB 3RD SCRUB Last Modified By: Tiana SILVESTRE, Jayne Harris RN, Jayne Harris RN, Jayne Steele 07/19/23 Shakira Steele 07/19/23 Shakira Steele 07/19/23 10:56:44 10:56:44 10:56:44 Entry 7 Case Attendee Anjali Gooden RN Role Performed Staff - Other Time In 07/19/23 08:50:00 Time Out 07/19/23 09:30:00 Procedure SHOULDER TOTAL ARTHROPLASTY(Right) Comments HELPING IN ROOM Last Modified By: Tiana SILVESTRE, Jayne Steele 07/19/23 10:56:44 General Comments: NIKO SANDERS - SCRUB PRIMARY; CUONG DAN and EVELINA CALDERA PRESENT FOR CASE -VReema HARRIS RNbuckle gluer Protocols FT Pre-Care Text: Implements protective measures prior to operative or invasive procedure, confirms identity before the operative or invasive procedure, verifies operative procedure, surgical site, and laterality Entry 1 Procedure(s) SHOULDER TOTAL Patient Identity Birthday, Blood Band, ARTHROPLASTY(Right) Verified (select at ID Band Check, Patient least 2): Participation Consents / H and P Anesthesia Consent, Operative Site Present Verified HandP, Surgery/Procedure Marking Verified Consent, Transfusion Consent Surgical Site Yes Laterality Verified Yes Verified Procedure Verified Yes Correct Patient Yes Position Verified Availability Equipment, Implant, Prep Dry n/a Verified (If Medication Applicable) PreOp Antibiotic Yes Time Out Los Gonzalez DO A, Given Participants Arthur England Wilhelm CST, Tiana Minor RN, Jayne Steele, Ziggy HOLLEY, Edmund Peralta Madison A Time Out Complete 07/19/23 09:34:00 Outcomes Met? Yes Last Modified By: Tiana SILVESTRE, Jayne Steele 07/19/23 09:46:21 Post-Care Text: The patient is free from signs and symptoms of injury caused by extraneous objects Allergy Information FT Pre-Care Text: Verifies allergies Entry 1 Allergies Reviewed? Yes Allergies Reviewed Self/Patient With Outcomes Met? Yes Last Modified By: Tiana SILVESTRE, Jayne Steele 07/19/23 09:46:33 Post-Care Text: The patient received appropriate medication(s) safely administered during the perioperative period Surgical Procedures FT Entry 1 Procedure Description Procedure SHOULDER TOTAL Modifiers Right ARTHROPLASTY Surgeon Description RIGHT REVERSE TOTAL SHOULDER ARTHROPLASTY Primary Procedure Yes Primary Surgeon Los Gonzalez DO Start 07/19/23 09:35:00 Stop 07/19/23 10:46:00 Anesthesia Type General Surgical Service Orthopedics Wound Class 1 - Clean Last Modified By: Tiana SILVESTRE, Jayne Shakira Ivette 07/19/23 10:46:40 General Case Data FT Pre-Care Text: Classifies surgical wound, implements aseptic technique, initiates traffic control Entry 1 Case Information OR OR 7 FT Case Level Level 6 Wound Class 1 - Clean Specialty Orthopedics ASA Class 2 Preop Diagnosis RIGHT SHOULDER Postop Same As Preop Yes OSTEOARTHRITIS Postop Diagnosis RIGHT SHOULDER Outcomes Met? Yes O (more content not included)... Normal [facility] Progress Note-Physicianon Progress Note-Physician Patient: ERNST VEGA Age: 57 years Sex: Female : 1965 Associated Diagnoses: None Author: Bob Beckett Jr, DO Postoperative Information Postoperative disposition: Postoperative disposition: To PACU. Optimetrix number: Optimetrix number [phone]. Anesthetic utilized: General. Health Status Allergies: Allergic Reactions (Selected) No Known Medication Allergies Physical Examination Vital Signs 07/19/2023 13:14 EST Heart Rate Monitored 75 bpm SpO2 94 % 07/19/2023 13:13 EST Respiratory Rate 20 br/min 07/19/2023 13:11 EST Systolic Blood Pressure 118 mmHg Diastolic Blood Pressure 79 mmHg Mean Arterial Pressure, Monitered 92 mmHg 07/19/2023 13:00 EST Heart Rate Monitored 84 bpm Respiratory Rate Monitored 20 br/min Systolic Blood Pressure 118 mmHg Diastolic Blood Pressure 79 mmHg SpO2 94 % 07/19/2023 12:02 EST Heart Rate Monitored 63 bpm SpO2 91 % 07/19/2023 12:01 EST Systolic Blood Pressure 154 mmHg HI Diastolic Blood Pressure 81 mmHg Mean Arterial Pressure, Monitered 105 mmHg 07/19/2023 12:01 EST Respiratory Rate 16 br/min 07/19/2023 11:25 EST Temperature Temporal Artery 36.4 DegC Heart Rate Monitored 73 bpm Respiratory Rate Monitored 14 br/min Systolic Blood Pressure 137 mmHg Diastolic Blood Pressure 82 mmHg Blood Pressure Location Left arm Mean Arterial Pressure, Cuff 100 mmHg SpO2 93 % Pain Assessment: Controlled. General: Awake, Alert, Appropriate. Respiratory: Adequate air exchange. Cardiovascular: Stable, Normal peripheral perfusion. Neurological: Normal sensory function, Normal motor function. Assessment Anesthetic outcome No anesthetic complications noted. Adequate pain relief. able to void without difficulty, able to ambulate with assist, tolerating PO intake, no N/V. Review / Management Condition: Stable. Plan Transfer/Discharge: Transfer/Discharge Discharge when meets criteria ( To home ). Normal [facility] Comment on above: Result Comment: Elec tronically Signed By: Bob Beckett Jr, DO\.br\Date and Time Signed: 07/25/23 07:44 EST Consent for Anesthesiaon Consent for Anesthesia [id number]#1.00TIFF [facility] Discharge Instructionson Discharge Instructions [id number]#1.00TIFF [facility] IntraOperative Documentson 1 09-20-2022 IntraOperative Documents [id number]#1.00TIFF [facility] Operative Reporton 3 Operative Report Patient: Mary VEGA Age: 57 years Sex: Female : 1965 Associated Diagnoses: None Author: Bob Beckett Jr, DO Procedure Nerve Block Block Type: Interscalene block. Laterality: Right. Informed consent for anesthesia management: Anesthesia options discussed including nerve block, Description of the procedure, risks, benefits, and alternatives was provided, The patient's questions were addressed. Time out: Confirmed correct patient, procedure and site. Time: Date/Time 07/19/2023 08:35:00. Indication: Block for postoperative pain management as requested by surgeon. Anesthesia Method: IV Sedation with monitored anesthesia care, The patient remained awake and able to interact in a meaningful way throughout the procedure. Preparation: The patient was placed in the following position Sitting, Continuous pulse oximetry applied, Using maximal sterile barrier technique per current CMS guidelines including hand hygeine, Guidance (Ultrasound used to identify anatomical landmarks, Using sterile gel and probe covers, Permanent image retained), The site was prepped with ChloraPrep. Procedure: Anesthetic Agent Ropivicaine 0.5% with 4mg Decadron 20cc total, Needle was inserted without pain or parasthesia in the conscious patient, Number of attempts 1, Negative attempt at aspiration for blood, Medial and lateral spread of the anesthestic was observed, Periodic negative attempts at aspiration of blood were made as the local was injected, No pain or parathesia were elicited with injection of the anesthetic in the conscious patient, It was idetified that the correct anesthetic agent was administered to the correct site. Complications: None, The patient tolerated the procedure as expected. Normal [facility] Comment on above: Result Comment: Elec tronically Signed By: Bob Beckett Jr, DO\.br\Date and Time Signed: 07/20/23 15:10 EST Pre-Op Checkliston 3 Pre-Op Checklist [id number]#1.00TIFF [facility] Progress Note-Physicianon Progress Note-Physician Patient: ERNST VEGA Age: 57 years Sex: Female : 1965 Associated Diagnoses: None Author: Bob Beckett Jr, DO Preoperative Information Anesthesia Preop Info: Time patient last ate or drank 07/19/2023 00:00:00. Anesthesia history: Patient history: None. Family history+: None. Informed consent: Signed by patient. Re-evaluation prior to induction: Initial evaluation reviewed: No significant change. Review of Systems Eye: Negative except as documented in history of present illness. Ear/Nose/Mouth/Throat: Negative except as documented in history of present illness. Respiratory: Negative except as documented in history of present illness. Cardiovascular: Negative except as documented in history of present illness. Musculoskeletal: Negative except as documented in history of present illness. Neurologic: Negative except as documented in history of present illness. Health Status Allergies: Allergic Reactions (Selected) No Known Medication Allergies Problem list: All Problems Left shoulder pain / SNOMED CT 74177107 / Confirmed Kidney disease / SNOMED CT 852554579 / Confirmed Hypertension / SNOMED CT 4077183699 / Confirmed H/O hypercholesterolemia / SNOMED CT 9746585976 / Confirmed Resolved: Post-menopause / SNOMED CT 354120226 Resolved: Anxiety / SNOMED CT 03056154 Histories Procedure history: MRI with sedation (133560417) on 05/23/2023 at 57 Years. Comments: 05/23/2023 12:11 AFSHAN Barron RN, Antonina Mendoza MRI with sedation of right shoulder Total arthroplasty of shoulder ([id number]) on 09/28/2022 at 57 Years. Arthroscopic repair of rotator cuff. (9376596213). Bunionectomy (37884976). Social History Social & Psychosocial Habits Alcohol 07/19/2023 Risk Assessment: Denies Alcohol Use Substance Abuse 07/19/2023 Risk Assessment: Denies Substance Abuse Tobacco 07/19/2023 Risk Assessment: Denies Tobacco Use . Physical Examination Airway: Mallampati classification: II (soft palate, fauces, uvula visible). Respiratory: adequate air exchange. Cardiovascular: Regular rhythm. Plan [employer] Anesthesiologists (ASA) physical status classification: Class II. Anesthetic Preoperative Plan: Anesthesia General. Regional Interscalene block. Normal [facility] Comment on above: Result Comment: Elec tronically Signed By: Sujit Burnett DO, Bob Parmar\.br\Date and Time Signed: 07/20/23 15:10 EST ABO/Rhon 07-19-2023 ABO/Rh Positive Invalid Interpretation Code [facility] Comment on above: Performed By: #### 1 [id number] ####[facility] [address] [place] [address] ABO/Rh History Checkon 07-19 ABO/Rh History Check Verified Hx Blood Type Normal [facility] Comment on above: Performed By: #### 1 [id number] ####[facility] [address] [place] [address] ABSCon 07-19-2023 ABSC Gel Interp Negative Normal [facility] Comment on above: Performed By: #### 1 [id number], [id number] ####[facility] [address] [place] [address] BLOOD BANKOrdered By: Shahnaz Childress on 07-19-2023 ABO/Rh Interp Positive Invalid Interpretation Code [facility] [place] Subsection ABSC Gel Interp Negative (07/19/23 7:20 AM) Normal [facility] Subsection Blood Bank ID#on 07-19-2023 BBID# [id number] Invalid Interpretation Code [facility] Comment on above: Performed By: #### 1 [id number], [id number] ####[facility] [address] [place] [address] Consent for Treatmenton 07-01 Consent for Treatment [id number]#1.00TIFF Normal [facility] Discharge Instructionson Discharge Instructions ERNST VEGA :1965 Visit Date:07/19/2023 Inpatient Discharge Instructions Your Care Team Admitting Physician - Los Gonzalez DO Referring Physician - Los Gonzalez DO Reason for Your Visit RIGHT SHOULDER OA This Is Your Medications List acetaminophen-oxycodone (Percocet 5 mg-325 mg oral tablet) amlodipine (amLODIPine 2.5 mg Tab) aspirin (aspirin 81 mg Oral EC Tab) atorvastatin (atorvastatin 40 mg Tab) celecoxib (CeleBREX 100 mg Cap) cephalexin (Keflex 500 mg Cap) docusate (Colace 100 mg Cap) fluoxetine (FLUoxetine 10 mg Cap) metoprolol (metoprolol 25 mg ER Tab) Procedure History MRI (05/23/2023), Arthroplasty of shoulder (09/28/2022), Arthroscopic repair of rotator cuff., Bunionectomy. What to do next New Follow Up Appointments after Discharge Follow Up with Los Gonzalez When: 08/01/2022 01:15 PM EST Comments: Appointment has already been scheduled Call for any problems. Keep scheduled appointment Where: [address] [place] [address]- Business (1) Medications What How Much When Instructions Next Dose New acetaminophen-oxycodone (Percocet 5 mg-325 mg oral tablet) See instructions 1-2 tab(s) Oral q4hr Pickup at [facility] #[id number] New celecoxib (CeleBREX 100 mg Cap) 1 Capsules By Mouth 2 times a day as needed for for pain Refills: 2 Pickup at [facility] #[id number] New cephalexin (Keflex 500 mg Cap) 1 Capsules By Mouth Every 8 hours Duration: 7 Days Pickup at [facility] #[id number] New docusate (Colace 100 mg Cap) 1 Capsules By Mouth 2 times a day as needed for for constipation Pickup at [facility] #[id number] Unchanged amlodipine (amLODIPine 2.5 mg Tab) 2 Tablets By Mouth Every day Unchanged aspirin (aspirin 81 mg Oral EC Tab) 1 Tablets By Mouth Every day Unchanged atorvastatin (atorvastatin 40 mg Tab) 1 Tablets By Mouth Every day Unchanged fluoxetine (FLUoxetine 10 mg Cap) 1 Capsules By Mouth Every day Unchanged metoprolol (metoprolol 25 mg ER Tab) 1 Tablets By Mouth Every day Pharmacy Information [facility] #[id number]: [address] [place], [place] [id number] [phone] [employer] [place], [place] [facility] DISCHARGE INSTRUCTIONS: SHOULDER REPLACEMENT MEDICATIONS You will be given a prescription for pain medication. This should be taken with food as needed. This may cause stomach upset, dizziness, and possible constipation. Please notify the office if you have any medication allergies to this type of medication or if any problems develop with the medication. DRESSING CHANGES Leave your bandage in place until your follow up visit. The bandage is waterproof, so you may shower it home. Any increase in pain, temperature over 101 degrees, redness, or drainage should be reported to the office prior to your first office visit. ACTIVITY You may continue to progress activity as comfortably tolerated with your opposite arm. You may begin to use your elbow, wrist, and hand as directed in physical therapy. You should only remove your sling for bathing and to perform range of motion exercises for the hand, wrist, and elbow. Do not actively move your shoulder Continue to ice the shoulder several times per day until follow up. ANESTHESIA PRECAUTIONS You should not operate a vehicle, automobile, bicycle or motorcycle, machinery, or power tools, make any important decisions, or drink alcohol for 24 hours. It may be beneficial to have a responsible adult remain with you for your first 24 hours after surgery. You may be drowsy and light-headed. DRIVING Driving is legal, however, if you are involved in an accident, you must be able to prove that you maintained full control of your vehicle. For this reason, it is advised that you do not drive until your strength returns. PROBLEMS You should notify the office for any persistent or heavy bleeding, temperature above 101, redness, swelling, or drainage from the operative site, severe pain at the operative site, or the development of persistent vomiting. Los Gonzalez, DO [facility] [address], [place] [address] Reviewed: Common Emergency Awareness Tips IS IT A STROKE? Act FAST and Check for these signs: FACE Does the face look uneven? ARM Does one arm drift down? SPEECH Does their speech sound strange? TIME Call at any sign of stroke Heart Attack Signs Chest discomfort: Most heart attacks involve discomfort in the center of the chest and lasts more than a few minutes, or goes away and comes back. It can feel like uncomfortable pressure, squeezing, fullness or pain. Discomfort in upper body: Symptoms can include pain or discomfort in one or both arms, back, neck, jaw or stomach. Shortness of breath: With or without discomfort. Other signs: Breaking out in (more content not included)... Normal [facility] Comment on above: Result Comment: Elec tronically Signed By: Sylvie SILVESTRE, Ricci Babb\.br\Date and Time Signed: 07/19/23 10:51 EST H&P Updateon 07-19-2023 H&P Update [id number]#[id number] Normal [facility] Inpatient Patient Summaryon 07-19-2023 Inpatient Patient Summary [facility] [address], [place] [address] [facility] Clinical Discharge Instructions PERSON INFORMATION Name: ERNST VEGA MRN: [facility]ICIANS Admitting Physician: Los Gonzalez DO Attending Physician: Los Gonzalez DO PCP: KAYE HERMOSILLO CNP Discharge Diagnosis: Comment: PATIENT EDUCATION INFORMATION Instructions: Jaime Gonzalez - Shoulder Replacement (Custom) Medication Leaflets: Follow up: MEDICATION LIST New Medications [place] [id number], [address], [place] [id number], [phone] acetaminophen-oxycodone (Percocet 5 mg-325 mg oral tablet) 1-2 tab(s) Oral q4hr. Refills: 0. celecoxib (CeleBREX 100 mg Cap) 1 Capsules By Mouth 2 times a day as needed for pain. Refills: 2. cephalexin (Keflex 500 mg Cap) 1 Capsules By Mouth every 8 hours for 7 Days. Refills: 0. docusate (Colace 100 mg Cap) 1 Capsules By Mouth 2 times a day as needed for constipation. Refills: 0. Medications to Continue with No Changes Other Medications amlodipine (amLODIPine 2.5 mg Tab) 2 Tablets By Mouth every day. aspirin (aspirin 81 mg Oral EC Tab) 1 Tablets By Mouth every day. atorvastatin (atorvastatin 40 mg Tab) 1 Tablets By Mouth every day. fluoxetine (FLUoxetine 10 mg Cap) 1 Capsules By Mouth every day. metoprolol (metoprolol 25 mg ER Tab) 1 Tablets By Mouth every day. Comment: [facility] Main OR PACU I Recordon 07-01 Main OR PACU I Record PACU Phase I Docum ent Type FT Summary Primary Physician: Los Gonzalez DO Finalized Date/Time: 07/19/23 12:24:46 Pt. Name: ERNST VEGA/Sex: 1965 Female Med Rec #: [id number] Physician: Los Gonzalez DO Financial #: [id number] Pt. Type: A Room/Bed: Admit/Disch: 07/19/23 06:25:38 - Institution: Case Times PACU I FT Pre-Care Text: Identifies barriers to communication and implements measures to provide psychological support Develops individualized plan of care, and ensures continuity of care Maintains patient's dignity and privacy, and maintains patient confidentiality Identifies and reports philosophical, cultural, and spiritual beliefs and values Identifies individual values and wishes concerning care Implements aseptic technique, and administers prescribed antibiotic therapy and immunizing agents as ordered Evaluates postoperative tissue perfusion Implements thermoregulation measures, and monitors body temperature Evaluates postoperative respiratory status Evaluates postoperative cardiac status Evaluates postoperative neurological status Assesses pain control, collaborated in initiating patient-controlled analgesia and implements alternative methods of pain control Verifies allergies, administers prescribed medications and solutions, evaluates response to medications Entry 1 In PACU I 07/19/23 10:57:00 Discharge from PACU 07/19/23 11:45:00 I Outcomes Met? Yes Last Modified By: Monique Herr RN 07/19/23 12:24:29 Post-Care Text: The patient demonstrates knowledge of the expected response to the operative or invasive procedure The patient's care is consistent with the individualized perioperative plan of care The patient's right to privacy is maintained The patient's value system, lifestyle, ethnicity, and culture are considered, respected, and incorporated into the perioperative plan of care The patient participates in decisions affecting his or her perioperative plan of care The patient is free from signs and symptoms of infection The patient has wound/tissue perfusion consistent with or improved from baseline levels established preoperatively The patient is at or returning to normothermia at the conclusion of the immediate postoperative period The patient's respiratory function is consistent with or improved from baseline levels established preoperatively The patient's cardiovascular status is consistent with or improved from baseline levels established preoperatively The patient's cardiovascular status is consistent with or improved from baseline levels established preoperatively The patient demonstrates and/or reports adequate pain control throughout the perioperative period The patient received appropriate medication(s), safely administered during the perioperative period Acuity Level PACU I FT Entry 1 Start Time 07/19/23 10:57:00 Stop Time 07/19/23 11:45:00 Acuity Level Acuity Level I Last Modified By: Monique Herr RN 07/19/23 12:24:42 Finalized By: Monique Herr RN Document Signatures Signed By: Monique Herr RN 07/19/23 12:24 [facility] Main OR PACU II Recordon Main OR PACU II Record PACU Phase II Document Type FT Summary Primary Physician: Los Gonzalez DO Finalized Date/Time: 07/19/23 13:30:37 Pt. Name: ERNST VEGA Addison Ridley./Sex: 1965 Female Med Rec #: [id number] Physician: Los Gonzalez DO Financial #: [id number] Pt. Type: A Room/Bed: [place] [address] Admit/Disch: 07/19/23 06:25:38 - Institution: Case Times PACU II FT Pre-Care Text: Identifies barriers to communication and implements measures to provide psychological support and determines knowledge level Develops individualized plan of care, and ensures continuity of care Maintains patient's dignity and privacy, and maintains patient confidentiality Identifies and reports philosophical, cultural, and spiritual beliefs and values Identifies individual values and wishes concerning care administers prescribed antibiotic therapy and immunizing agents as ordered, Evaluates postoperative tissue perfusion Implements thermoregulation measures, and monitors body temperature Evaluates postoperative respiratory status Evaluates postoperative cardiac status Evaluates postoperative neurological status Assesses pain control, collaborated in initiating patient-controlled analgesia and implements alternative methods of pain control Verifies allergies, administers prescribed medications and solutions, evaluates response to medications Entry 1 In PACU II 07/19/23 11:50:00 Discharge from PACU 07/19/23 13:15:00 II Outcomes Met? Yes Last Modified By: Sylvie SILVESTRE, Ricci Babb 07/19/23 13:30:34 Post-Care Text: The patient demonstrates knowledge of the expected response to the operative or invasive procedure The patient's care is consistent with the individualized perioperative plan of care The patient's right to privacy is maintained The patient's value system, lifestyle, ethnicity, and culture are considered, respected, and incorporated into the perioperative plan of care The patient participates in decisions affecting his or her perioperative plan of care. The patient is free from signs and symptoms of infection The patient has wound/tissue perfusion consistent with or improved from baseline levels established preoperatively The patient is at or returning to normothermia at the conclusion of the immediate postoperative period The patient's respiratory function is consistent with or improved from baseline levels established preoperatively The patient's cardiovascular status is consistent with or improved from baseline levels established preoperatively The patient's neurological status is consistent with or improved from baseline levels established preoperatively The patient demonstrates and/or reports adequate pain control throughout the perioperative period The patient received appropriate medication(s), safely administered during the perioperative period Finalized By: Ricci Mercer RN Document Signatures Signed By: Ricci Mercer RN 07/19/23 13:[address] [facility] Main OR Preoperative Recordo n 07-19-2023 Main OR Preoperative Record PreOp Document Type FT Summary Primary Physician: Los Gonzalez DO Finalized Date/Time: 07/19/23 09:57:23 Pt. Name: ERNST VEGA Addison RaglandB./Sex: 1965 Female Med Rec #: [id number] Physician: Los Gonzalez DO Financial #: [id number] Pt. Type: A Room/Bed: [facility] Admit/Disch: 07/19/23 06:25:38 - Institution: Case Times PreOp FT Pre-Care Text: Verifies consent for planned procedure, identifies individual values and wishes concerning care, includes family members in perioperative teaching Entry 1 Patient Times. In Pre Surgery 07/19/23 07:00:00 Out Pre Surgery 07/19/23 08:33:00 Outcomes Met? Yes Last Modified By: Jayne Harris RN 07/19/23 09:57:21 Post-Care Text: The patient participates in decisions affecting his or her perioperative plan of care Finalized By: Jayne Harris RN Document Signatures Signed By: Jayne Harris RN 07/19/23 09:[address] [facility] Monitor Recordon 07-19-2023 Monitor Record [id number] Normal [facility] Monitor Record [id number] Normal [facility] Operative Reporton Operative Report Patient: Mary VEGA Age: 57 years Sex: Female : 1965 Associated Diagnoses: None Author: Los Gonzalez DO DATE OF SURGERY: 07/19/2023 SURGEON: Los Gonzalez D.O. CERTIFIED CODER: Jason Lynn CFA PREOPERATIVE DIAGNOSIS: Massive rotator cuff tear, glenohumeral osteoarthrosis, right shoulder POSTOPERATIVE DIAGNOSIS: Massive rotator cuff tear, glenohumeral osteoarthrosis, right shoulder OPERATION: 1. Right reverse total shoulder arthroplasty (CPT code 03434) 2. Biceps tenodesis, right shoulder (CPT code 93747) ANESTHESIA: General with a regional block ANESTHESIOLOGIST: Bob Beckett DO and ELIZABETH Novak IMPLANTS USED: Tornier Aequalis Perform Reverse system 1. 25 mm 15 degree full wedge augment baseplate, 35 mm x 6.5 mm central screw, four 5.0 mm peripheral screws measuring 18, 18, 26, 38 mm 2. 36 mm standard glenosphere 3. +0 mm poly insert 4. size 2+ Perform short humeral stem OPERATIVE INDICATIONS: Ernst is 57-year-old right hand dominant female who has had significant pain and dysfunction with the right shoulder depsite numerous conservative measures. Her pain affects her ADLs, ability to sleep at night, and quality of life. She wished to proceed with the above procedure after a discussion of the risks, benefits, complications, alternatives, and expectations. Please see office notes for further details. Presurgical planning was performed with the [employer]4 Data Blueprint software and a patient specific 3D guide was created for central pin placement. PROCEDURE: The correct operative site was identified and marked in the preoperative holding area. The patient was administered intravenous antibiotics in accordance with SCIP Protocol. She was administered 1 g of IV tranexamic acid. She was transported to the regional block room and administered a regional anesthetic nerve block by the anesthesiologist. I requested the regional block to assist with intraoperative and postoperative pain control. The patient was transported to the Operating Room and placed supine on the operating room table. She was administered a general anesthetic. Sequential stockings were placed on the legs. She was placed into the beach chair position with all bony prominences well padded and the head secured in the padded arthur. The head of the table was elevated approximately 45 degrees. The right upper extremity was then prepped and draped in the usual sterile fashion. The extremity was draped free and placed onto a padded sterile randle stand. Surgical time-out was performed with all required personnel present. A deltopectoral approach was utilized. An incision was made beginning at the coracoid process and extended distally towards the deltoid insertion. The skin was scored with the 10 blade and deeper dissection was continued with the bovie. Hemostasis achieved along the way with Bovie electrocautery and Aquamantys. The cephalic vein was located. The deltopectoral interval was identified and opened. The cephalic vein was retracted medially with the pectoralis. Perforating veins into the deltoid were cauterized with the bovie. Subdeltoid and subacromial adhesions were released with a Beltran. Nova retractor was placed to retract the deltoid. The conjoined tendon was identified and the clavipectoral fascia was opened just lateral to the conjoined tendon. The tendon was gently retracted medially. The coracoacromial ligament was identified and the rotator interval was then opened. The bicipital sheath was opened and the biceps tendon was located. The upper 1 cm of the pectoralis major tendon was released. The biceps tendon was sutured to the pectoralis with #2 FiberWire suture. The tendon was then transected above the tenodesis site and released proximally. The anterior circumflex vessels were cauterized with the Bovie and Aquamantys. A subscapularis peel was performed by releasing the tendon and the anterior capsule from the lesser tuberosity with the bovie. #2 FiberWire tag suture was placed into the subscapularis. The arm was adducted, extended, and externally rotated to deliver the proximal humerus while the anterior capsule was released. The 135 degree resection guide was then placed against the proximal humerus and a Bovie was used to create a leandra at the humeral head for the position of the desired cut. The humeral head was then freehand cut with an oscillating saw at 30 degrees of retroversion. The greater tuberosity was devoid of cuff tissue. A metal protection plate was then placed onto the cut surface of the humerus. Attention was then turned to preparation of the glenoid. A posterior retractor was placed to retract the humeral head. Ambar retractor placed posterosuperiorly. The axillary nerve was palpated along the anterior inferior glenoid. Anterior capsule was released with the bovie while my index finger protected the axillary nerve. An anterior glenoid retractor was then placed. Biceps st (more content not included)... Normal [facility] Comment on above: Result Comment: Elec tronically Signed By: Los Gonzalez DO\.br\Date and Time Signed: 07/19/23 10:59 EST Outpatient Surgery Discharge Instructionon 07-19-2023 Outpatient Surgery Discharge Instruction [place] [id number] Patient Discharge Instructions PERSON INFORMATION Name: ERNST VEGA Date of : 1965 Current Date: 07/19/2023 10:43:19 PHYSICIANS Admitting Physician: Los Gonzalez DO Discharge Diagnosis: ERNST VEGA has been given the following list of follow-up instructions, prescriptions, and patient education materials: IF UNABLE TO CONTACT YOUR PHYSICIAN AND YOU FEEL IT IS AN EMERGENCY, GO TO THE NEAREST EMERGENCY ROOM OR CALL 911 I, ERNST VEGA, have received the attached patient education materials/instructions and have verbalized understanding: May we do a follow up call? Yes No I was present when discharge instructions were given __ Patient Signature Date Clinican/Nurse Signature Date Follow up: Pharmacy Information: You may receive a survey from [employer] asking you to rate your care experience. Your feedback is important and will help us understand what we do well and how we can improve the quality of care we provide to you, your loved ones and our community. It?s an honor to serve you. Thank you for choosing [facility] HERE ARE THE MEDICATION CHANGES THAT OCCURRED DURING YOUR HOSPITAL STAY New Medications [id number], [address], [place] [id number], [phone] acetaminophen-oxycodone (Percocet 5 mg-325 mg oral tablet) 1-2 tab(s) Oral q4hr. Refills: 0. celecoxib (CeleBREX 100 mg Cap) 1 Capsules By Mouth 2 times a day as needed for pain. Refills: 2. cephalexin (Keflex 500 mg Cap) 1 Capsules By Mouth every 8 hours for 7 Days. Refills: 0. docusate (Colace 100 mg Cap) 1 Capsules By Mouth 2 times a day as needed for constipation. Refills: 0. Medications to Continue with No Changes Other Medications amlodipine (amLODIPine 2.5 mg Tab) 2 Tablets By Mouth every day. aspirin (aspirin 81 mg Oral EC Tab) 1 Tablets By Mouth every day. atorvastatin (atorvastatin 40 mg Tab) 1 Tablets By Mouth every day. fluoxetine (FLUoxetine 10 mg Cap) 1 Capsules By Mouth every day. metoprolol (metoprolol 25 mg ER Tab) 1 Tablets By Mouth every day. PATIENT EDUCATION INFORMATION Instructions: [place], [place] [facility] DISCHARGE INSTRUCTIONS: SHOULDER REPLACEMENT MEDICATIONS You will be given a prescription for pain medication. This should be taken with food as needed. This may cause stomach upset, dizziness, and possible constipation. Please notify the office if you have any medication allergies to this type of medication or if any problems develop with the medication. DRESSING CHANGES Leave your bandage in place until your follow up visit. The bandage is waterproof, so you may shower it home. Any increase in pain, temperature over 101 degrees, redness, or drainage should be reported to the office prior to your first office visit. ACTIVITY You may continue to progress activity as comfortably tolerated with your opposite arm. You may begin to use your elbow, wrist, and hand as directed in physical therapy. You should only remove your sling for bathing and to perform range of motion exercises for the hand, wrist, and elbow. Do not actively move your shoulder Continue to ice the shoulder several times per day until follow up. ANESTHESIA PRECAUTIONS You should not operate a vehicle, automobile, bicycle or motorcycle, machinery, or power tools, make any important decisions, or drink alcohol for 24 hours. It may be beneficial to have a responsible adult remain with you for your first 24 hours after surgery. You may be drowsy and light-headed. DRIVING Driving is legal, however, if you are involved in an accident, you must be able to prove that you maintained full control of your vehicle. For this reason, it is advised that you do not drive until your strength returns. PROBLEMS You should notify the office for any persistent or heavy bleeding, temperature above 101, redness, swelling, or drainage from the operative site, severe pain at the operative site, or the development of persistent vomiting. Los Gonzalez, DO [facility] [address] [place] [address] Reviewed: Medication Leaflets: [facility] Patient Education - Texton 1 09-19-2022 Patient Education - Text Pulmonary Medicine How to Use an Incentive Spirometer An incentive spirometer is a tool that measures how well you are filling your lungs with each breath. Learning to take long, deep breaths using this tool can help you keep your lungs clear and active. This may help to reverse or lessen your chance of developing breathing (pulmonary) problems, especially infection. You may be asked to use a spirometer: ? After a surgery. ? If you have a lung problem or a history of smoking. ? After a long period of time when you have been unable to move or be active. If the spirometer includes an indicator to show the highest number that you have reached, your health care provider or respiratory therapist will help you set a goal. Keep a log of your progress as told by your health care provider. What are the risks? ? Breathing too quickly may cause dizziness or cause you to pass out. Take your time so you do not get dizzy or light-headed. ? If you are in pain, you may need to take pain medicine before doing incentive spirometry. It is harder to take a deep breath if you are having pain. How to use your incentive spirometer 1. Sit up on the edge of your bed or on a chair. 2. Hold the incentive spirometer so that it is in an upright position. 3. Before you use the spirometer, breathe out normally. 4. Place the mouthpiece in your mouth. Make sure your lips are closed tightly around it. 5. Breathe in slowly and as deeply as you can through your mouth, causing the piston or the ball to rise toward the top of the chamber. 6. Hold your breath for 3?5 seconds, or for as long as possible. ? If the spirometer includes a athletic coach indicator, use this to guide you in breathing. Slow down your breathing if the indicator goes above the marked areas. 7. Remove the mouthpiece from your mouth and breathe out normally. The piston or ball will return to the bottom of the chamber. 8. Rest for a few seconds, then repeat the steps 10 or more times. ? Take your time and take a few normal breaths between deep breaths so that you do not get dizzy or light-headed. ? Do this every 1?2 hours when you are awake. 9. If the spirometer includes a goal marker to show the highest number you have reached (best effort), use this as a goal to work toward during each repetition. 10. After each set of 10 deep breaths, cough a few times. This will help to make sure that your lungs are clear. ? If you have an incision on your chest or abdomen from surgery, place a pillow or a rolled-up towel firmly against the incision when you cough. This can help to reduce pain while taking deep breaths and coughing. General tips ? When you are able to get out of bed: ? Walk around often. ? Continue to take deep breaths and cough in order to clear your lungs. ? Keep using the incentive spirometer until your health care provider says it is okay to stop using it. If you have been in the hospital, you may be told to keep using the spirometer at home. Contact a health care provider if: ? You are having difficulty using the spirometer. ? You have trouble using the spirometer as often as instructed. ? Your pain medicine is not giving enough relief for you to use the spirometer as told. ? You have a fever. Get help right away if: ? You develop shortness of breath. ? You develop a cough with bloody mucus from the lungs. ? You have fluid or blood coming from an incision site after you cough. Summary ? An incentive spirometer is a tool that can help you learn to take long, deep breaths to keep your lungs clear and active. ? You may be asked to use a spirometer after a surgery, if you have a lung problem or a history of smoking, or if you have been inactive for a long period of time. ? Use your incentive spirometer as instructed every 1?2 hours while you are awake. ? If you have an incision on your chest or abdomen, place a pillow or a rolled-up towel firmly against your incision when you cough. This will help to reduce pain. ? Get help right away if you have shortness of breath, you cough up bloody mucus, or blood comes from your incision when you cough. This information is not intended to replace advice given to you by your health care provider. Make sure you discuss any questions you have with your health care provider. Document Revised: 10/05/2020 Document Reviewed: 10/05/2020 [employer] Patient Education ? 2022 [employer] [place], [place] [facility] DISCHARGE INSTRUCTIONS: SHOULDER REPLACEMENT MEDICATIONS You will be given a prescription for pain medication. This should be taken with food as needed. This may cause stomach upset, dizziness, and possible constipation. Please notify the office if you have any medication allergies to this type of medication or if (more content not included)... Normal [facility] XR Shoulder Complete Righton 07-19-2023 XR Shoulder Complete Right Exam Date/Time: 07/19/2023 11:20 EST Reason for Exam: Post Op Report IMPRESSION: NEGATIVE POSTOPERATIVE RIGHT SHOULDER. CLINICAL HISTORY: Post Op COMPARISON: NONE FINDINGS: 2 views. Interval placement of bipolar noncemented right shoulder replacement. No fracture. No abnormal lucency bone prosthetic interface alignment maintained. Ordering Provider: Los Gonzalez FINAL REPORT Dictated: 07/19/2023 3:43 pm Iván Rowell MD Signed (Electronic Signature): 07/19/2023 3:43 pm Signed by: Iván Rowell MD Transcribed by: DP Technologist: CC, Technical Comments Radiation Dose: Ka,r in mGy = na DAP = na Normal [facility] Consent for Procedure/Surger yon 07-18-2023 Consent for Procedure/Surgery [id number] Normal [facility] Auto Diffon 07-06-2023 Basophils/100 WBC (Bld) 1.0 % Normal 0.0-2.[address] [facility] Comment on above: Order Comment: Order Added by Discern Expert. Performed By: #### 1 [id number] #### [facility] [address] [place] [id number] Basophils/Leukocytes Auto (Bld) [Pure # fraction] 0.1 E9/L Normal 0.0-0.[address] [facility] Comment on above: Order Comment: Order Added by Discern Expert. Performed By: #### 1 [id number] #### [facility] [address] [place] [address] Eosinophils/100 WBC (Bld) 2.9 % Normal 0.0-8.[address] [facility] Comment on above: Order Comment: Order Added by Discern Expert. Performed By: #### 1 [id number] #### [facility] [address] [place] [address] Eosinophils/Leukocyte s Auto (Bld) [Pure # fraction] 0.2 E9/L Normal 0.0-0.[address] [facility] Comment on above: Order Comment: Order Added by Discern Expert. Performed By: #### 1 [id number], [id number], [id number], [id number] #### [facility] Laboratory [address] [place] [address] Lymphocytes/100 WBC (Bld) 20.7 % Normal 14.0-50.[address] [facility] Comment on above: Order Comment: Order Added by Discern Expert. Performed By: #### 1 [id number], 2641941, 5618521, 8004920 #### [facility] Laboratory [address] [place] [address] Lymphocytes/Leukocyte s Auto (Bld) [Pure # fraction] 1.7 E9/L Normal 1.0-4.[address] [facility] Comment on above: Order Comment: Order Added by Discern Expert. Performed By: #### 1 [id number], 0166445, 5575290, 1406776 #### [facility] Laboratory [address] [place] [address] Monocytes/100 WBC (Bld) 5.3 % Normal 4.0-14.[address] [facility] Comment on above: Order Comment: Order Added by Dave Expert. Performed By: #### 1 [id number], 9758334, 8673743, 4800777 #### [facility] [address] [place] [address] Monocytes/Leukocytes Auto (Bld) [Pure # fraction] 0.4 E9/L Normal 0.2-1.[address] [facility] Comment on above: Order Comment: Order Added by Dave Expert. Performed By: #### 1 [id number], 4787398, 0321056, 8608109 #### [facility] [address] [place] [address] Neutrophils/100 WBC (Bld) 70.1 % Normal 36.0-75.[address] [facility] Comment on above: Order Comment: Order Added by Dave Expert. Performed By: #### 1 [id number], 4367211, 2898568, 6961886 #### [facility] [address] [place] [address] Neutrophils/Leukocyte s Auto (Bld) [Pure # fraction] 5.7 E9/L Normal 2.0-7.[address] [facility] Comment on above: Order Comment: Order Added by Dave Expert. Performed By: #### 1 5777065, 7778975, 6011196, 4577548 #### [facility] [address] [place] [address] BMPon 07-06-2023 Anion gap [Moles/Vol] 13 mmol/L Normal 6-16 [facility] Comment on above: Performed By: #### 1 [id number], 6044018, 4716291, 8011201 #### [facility] [address] [place] [address] Calcium [Mass/Vol] 9.6 mg/dL Normal 8.9-11.[address] [facility] Comment on above: Performed By: #### 1 6388228, 5294559, 1136335, 0866013 #### [facility] [address] [place] [address] Chloride [Moles/Vol] 107 mmol/L Normal 101-111 [facility] Comment on above: Performed By: #### 1 7834040, 7449598, 5160738, 8323421 #### [facility] [address] [place] [address] CO2 [Moles/Vol] 24 mmol/L Normal 21-[address] [facility] Comment on above: Performed By: #### 1 4377135, 0330009, 4542406, 4395721 #### [facility] [address] [place] [address] Creatinine [Mass/Vol] 1.2 mg/dL Normal 0.5-1.3 [facility] Comment on above: Performed By: #### 1 4650453, 0339833, 6147181, 5826912 #### [facility] [address] [place] [address] Glucose [Mass/Vol] 110 mg/dL Normal 55-[address] [facility] Comment on above: Result Comment: If t his glucose result represents a fasting glucose, interpretation should refer to the following reference range: 55-99 mg/dL Performed By: #### 1 5388803, 9236179, 6895036, 1103509 #### [facility] [address] [place] [address] Potassium [Moles/Vol] 3.7 mmol/L Normal 3.5-5.3 [facility] Comment on above: Performed By: #### 1 9924292, 4265722, 3457275, 8630175 #### [facility] [address] [place] [address] Sodium [Moles/Vol] 140 mmol/L Normal 135-[address] [facility] Comment on above: Performed By: #### 1 0363543, 4707670, 7914106, 1826908 #### [facility] [address] [place] [address] Urea nitrogen [Mass/Vol] 22 mg/dL High 5-[address] [facility] Comment on above: Performed By: #### 1 0901040, 9940883, 2836130, 5207118 #### [facility] [address] [place] [address] Urea nitrogen/Creatinine [Mass ratio] 18 No Units Normal 10-[address] [facility] Comment on above: Performed By: #### 1 7974580, 9266122, 6546070, 2904791 #### [facility] [address] [place] [address] CBC w/ Auto Diffon 3 Erythrocyte distribution width (RBC) [Ratio] 13.9 % Normal 10.9-14.[address] [facility] Comment on above: Performed By: #### 1 9075305, 7522543, 5111017, 7805519 #### [facility] [address] [place] [address] Hematocrit (Bld) [Volume fraction] 35.5 % Normal 34.0-46.[address] [facility] Comment on above: Performed By: #### 1 2841001, 8329767, 1244066, 2660698 #### [facility] [address] [place] [address] Hemoglobin (Bld) [Mass/Vol] 11.6 g/dL Low 12.0-16.[address] [facility] Comment on above: Performed By: #### 1 8710980, 0329251, 7677138, 5897354 #### [facility] [address] [place] [address] MCH (RBC) [Entitic mass] 28.6 pg Normal 27.0-34.[address] [facility] Comment on above: Performed By: #### 1 8297226, 2898205, 9150518, 8728432 #### [facility] [address] [place] [address] MCHC (RBC) [Mass/Vol] 32.7 g/dL Normal 31.4-36.0 [facility] Comment on above: Performed By: #### 1 3608369, 9893076, 1655378, 1845535 #### [facility] [address] [place] [address] MCV (RBC) [Entitic vol] 87.3 fL Normal 80.0-100.[address] [facility] Comment on above: Performed By: #### 1 6388072, 3061855, 8427217, 3593702 #### [facility] [address] [place] [address] Platelet mean volume (Bld) [Entitic vol] 8.3 fL Normal 6.4-10.[address] [facility] Comment on above: Performed By: #### 1 6962235, 9611116, 8549883, 5606544 #### [facility] [address] [place] [address] Platelets (Bld) [#/Vol] 416.0 E9/L Normal 150.0-500. [address] [facility] Comment on above: Performed By: #### 1 2286964, 5840737, 8995934, 5627829 #### [facility] [address] [place] [address] RBC (Bld) [#/Vol] 4.1 E12/L Low 4.3-5.[address] [facility] Comment on above: Performed By: #### 1 6204463, 0566368, 7882801, 4744345 #### [facility] [address] [place] [address] WBC corrected for nucl RBC Auto (Bld) [#/Vol] 8.2 E9/L Normal 4.0-11.[address] [facility] Comment on above: Performed By: #### 1 8437819, 6529057, 7513539, 7620843 #### [facility] Laboratory [address] [place] [address] CHEMISTRYOrdered By: SYSTEM SYSTEM on 07-06-2023 Anion gap [Moles/Vol] 13 mmol/L Normal 6 - 16 mEq/L FT Rem[facility] Calcium [Mass/Vol] 9.6 mg/dL Normal 8.9 - 11. 1 mg/dL [facility] Chloride [Moles/Vol] 107 mmol/L Normal 101 - 1 11 mmol/L [facility] CO2 [Moles/Vol] 24 mmol/L Normal 21 - 31 mmol/L [facility] Creatinine [Mass/Vol] 1.2 mg/dL Normal 0.5 - 1.3 mg/dL [facility] Remisol GFR/1.73 sq M.predicted among non-blacks MDRD (S/P/Bld) [Vol rate/Area] 52 mL/min/1.73 m2 Low >=59mL/min /1.73 m2 [facility] Chem S Comment on above: Interpretive Data: C hronic kidney disease could be indicated at eGFR's of less than 60 mL/min/1.73m2. Kidney failure is indicated at less than 15 mL/min/1.73m2. Glucose [Mass/Vol] 110 mg/dL Normal 55 - 199 mg/dL [facility] Comment on above: Interpretive Data: I f this glucose result represents a fasting glucose, interpretation should refer to the following reference range: 55-99 mg/dL Potassium [Moles/Vol] 3.7 mmol/L Normal 3.5 - 5.3 mmol/L [facility] Remisol Sodium [Moles/Vol] 140 mmol/L Normal 135 - 145 mmol/L [facility] Urea nitrogen [Mass/Vol] 22 mg/dL High 5 - 21 mg/dL [facility] Remisol Urea nitrogen/Creatinine [Mass ratio] 18 mg/mg Normal 10 - 20 [facility] Consent for Treatmenton Consent for Treatment [id number]#1.00TIFF Normal [facility] HEMATOLOGYOrdered By: SYSTEM SYSTEM on 12-07-2023 Basophils/100 WBC (Bld) 1.0 % Normal 0.0 - 2.0 % [facility] HemeAutoSS Basophils/Leukocytes Auto (Bld) [Pure # fraction] 0.1 E9/L Normal 0.0 - 0.2 E9/L [facility]eAuto[facility] Eosinophils/100 WBC (Bld) 2.9 % Normal 0.0 - 8.0 % [facility]eAuto[facility] Eosinophils/Leukocyte s Auto (Bld) [Pure # fraction] 0.2 E9/L Normal 0.0 - 0.5 E9/L [facility] Lymphocytes/100 WBC (Bld) 20.7 % Normal 14.0 - 50.0 % [facility]eAutoSS Lymphocytes/Leukocyte s Auto (Bld) [Pure # fraction] 1.7 E9/L Normal 1.0 - 4.0 E9/L [facility] Monocytes/100 WBC (Bld) 5.3 % Normal 4.0 - 14.0 % [facility]eAuto[facility] Monocytes/Leukocytes Auto (Bld) [Pure # fraction] 0.4 E9/L Normal 0.2 - 1.0 E9/L [facility] Neutrophils/100 WBC (Bld) 70.1 % Normal 36.0 - 75.0 % [facility] Neutrophils/Leukocyte s Auto (Bld) [Pure # fraction] 5.7 E9/L Normal 2.0 - 7.5 E9/L [facility] HEMATOLOGYOrdered By: Tamar Gary on 07-06-2023 Erythrocyte distribution width (RBC) [Ratio] 13.9 % Normal 10.9 - 14.2 % [facility] Hematocrit (Bld) [Volume fraction] 35.5 % Normal 34.0 - 46.0 % [facility] Hemoglobin (Bld) [Mass/Vol] 11.6 g/dL Low 12.0 - 16.0 gm/dL [facility] MCH (RBC) [Entitic mass] 28.6 pg Normal 27.0 - 34.0 pg [facility] MCHC (RBC) [Mass/Vol] 32.7 g/dL Normal 31.4 - 36.0 gm/dL [facility] MCV (RBC) [Entitic vol] 87.3 fL Normal 80.0 - 100.0 fL [facility] Platelet mean volume (Bld) [Entitic vol] 8.3 fL Normal 6.4 - 10.8 fL [facility]eAuto[facility] Platelets (Bld) [#/Vol] 416.0 E9/L Normal 150.0 - 500.0 E9/L [facility]eAutoSS RBC (Bld) [#/Vol] 4.1 E12/L Low 4.3 - 5.9 E12/L [facility] HemeAutoSS WBC corrected for nucl RBC Auto (Bld) [#/Vol] 8.2 E9/L Normal 4.0 - 11.0 E9/L [facility] HemeAutoSS UA With Cult Reflexon 2022 Bacteria LM Ql (Urine sed) TRACE Normal Trace [facility] Comment on above: Performed By: #### 1 [id number] ####[facility] [address] [place] [address] Bilirubin Ql (U) Negative Normal Negative [facility] Comment on above: Performed By: #### 1 [id number] ####[facility] [address] [place] [address] Clarity (U) SL CLOUDY Invalid Interpretation Code [facility] Comment on above: Performed By: #### 1 [id number] ####[facility] [address] [place] [address] Color (U) YELLOW Normal Yellow [facility] Comment on above: Performed By: #### 1 [id number] ####[facility] [address] [place] [address] Epithelial cells.squamous LM.HPF (Urine sed) [#/Area] 5-8 Normal 0-[address] [facility] Comment on above: Performed By: #### 1 [id number] ####[facility] [address] [place] [address] Glucose Test strip (U) [Mass/Vol] Negative Normal Negative [facility] Comment on above: Performed By: #### 1 [id number] ####[facility] [address] [place] [address] Hemoglobin Ql (U) Negative Normal Negative [facility] Comment on above: Performed By: #### 1 [id number] ####[address] [address] Ketones (U) [Mass/Vol] Negative Normal Negative [facility] Comment on above: Performed By: #### 1 1913525 ####[address] [address] [place].plasma/Lithiu m.RBC (Bld) [Mass ratio] 0-3 Normal 0-[address] [facility] Comment on above: Performed By: #### 1 4662902 ####[address] [address] Mucus Ql (Urine sed) TRACE Normal [facility] Comment on above: Performed By: #### 1 8310156 ####[address] [address] Nitrite Ql (U) Negative Normal Negative [facility] Comment on above: Performed By: #### 1 4873972 ####[address] [address] pH (U) 5.5 [pH] Invalid Interpretation Code 5.0-9.[address] [facility] Comment on above: Performed By: #### 1 1452540 ####[address] [address] Protein (U) [Mass/Vol] Negative Normal Negative [facility] Comment on above: Performed By: #### 1 3282826 ####[address] [address] Specific gravity (U) [Rel density] 1.025 Invalid Interpretation Code 1.005-1.[address] [facility] Comment on above: Performed By: #### 1 6699084 ####[address] [address] Type of Urine collection method Clean Catch Normal [facility] Comment on above: Performed By: #### 1 3553351 ####[address] [address] Urobilinogen Qn (U) 0.2 {Imer'U}/dL Normal 0.0-1.[address] [facility] Comment on above: Performed By: #### 1 3987893 ####[facility] [address] [place] [address] WBC Auto Ql (U) Negative Normal Negative [facility] Comment on above: Performed By: #### 1 2612649 ####[facility] [address] [place] [address] WBC LM.HPF (Urine sed) [#/Area] 0-5 Normal 0-[address] [facility] Comment on above: Performed By: #### 1 4815973 ####[facility] [address] [place] [address] URINALYSISOrdered By: Miguel Angel White on 07-06-2023 Bacteria LM Ql (Urine sed) Trace /HPF Normal Trace/HPF [facility] UA Auto SS Bilirubin Ql (U) Negative (07/06/23 9:53 AM) Normal Negative [facility] UA Auto SS Clarity (U) SL CLOUDY Invalid Interpretation Code [facility] UA Auto SS Color (U) Yellow (07/06/23 9:53 AM) Normal Yellow [facility] UA Auto SS Epithelial cells.squamous LM.HPF (Urine sed) [#/Area] 5-8 /HPF Normal 0-2/HPF [facility] UA Auto SS Glucose Test strip (U) [Mass/Vol] Negative (07/06/23 9:53 AM) Normal Negative [facility] UA Auto SS Hemoglobin Ql (U) Negative (07/06/23 9:53 AM) Normal Negative [facility] UA Auto SS Ketones (U) [Mass/Vol] Negative (07/06/23 9:53 AM) Normal Negative [facility] UA Auto SS [place].plasma/Lithiu m.RBC (Bld) [Mass ratio] 0-3 /HPF Normal 0-3/HPF [facility] UA Auto SS Mucus Ql (Urine sed) Trace (07/06/23 9:53 AM) Normal [facility] UA Auto SS Nitrite Ql (U) Negative (07/06/23 9:53 AM) Normal Negative [facility] UA Auto SS pH (U) 5.5 *NA* (07/06/23 9:53 AM) Invalid Interpretation Code 5.0 - 9.0 [facility] UA Auto SS Protein (U) [Mass/Vol] Negative (07/06/23 9:53 AM) Normal Negative [facility] UA Auto SS Specific gravity (U) [Rel density] 1.025 *NA* (07/06/23 9:53 AM) Invalid Interpretation Code 1.005 - 1.030 [facility] UA Auto SS UA Spec Desc Clean Catch (07/06/23 9:53 AM) Normal [facility] UA Auto SS Urobilinogen Qn (U) 0.7478926 {Imer'U}/dL Normal 0.0 - 1.0 EU/dL [facility] UA Auto SS WBC Auto Ql (U) Negative (07/06/23 9:53 AM) Normal Negative [facility] UA Auto SS WBC LM.HPF (Urine sed) [#/Area] 0-5 /HPF Normal 0-5/HPF [facility] UA Auto SS eGFRon 07-06-2023 GFR/1.73 sq M.predicted among non-blacks MDRD (S/P/Bld) [Vol rate/Area] 52 mL/min/1.73 m2 Low >=[address] [facility] Comment on above: Order Comment: Order added by Discern Expert. Result Comment: Hyperbaric Tech serina kidney disease could be indicated at eGFR's of less than 60 mL/min/1.73m2. Kidney failure is indicated at less than 15 mL/min/1.73m2. Performed By: #### 1 [id number], 2894040, 8267388, 7651009 #### [facility] Laboratory [address] [place] [address] Physician Orderon 06-07-2023 Physician Order [id number]#1.00TIFF Normal [facility] Physician Order [id number]#1.00TIFF Normal [facility] Physician Orderon 05-31-2023 Physician Order [id number]#1.00TIFF [facility] Consenton 05-24-2023 Consent [id number]#1.00TIFF Normal [facility] Discharge Instructionson Discharge Instructions [id number]#1.00TIFF Normal [facility] Pre-Op Evaluationon 05-24-20 Pre-Op Evaluation [id number]#1.00TIFF Normal [facility] Consent for Treatmenton 05-01 Consent for Treatment [id number]#1.00TIFF Normal [facility] Discharge Instructionson Discharge Instructions ERNST VEGA :1965 Visit Date:05/23/2023 Inpatient Discharge Instructions Your Care Team Admitting Physician - Los Gonzalez DO Referring Physician - Los Gonzalez DO Tests Performed MRI Shoulder w/o Contrast Right -- Results Pending -- Please visit your patient portal for your results or contact your primary care physician. Procedure History Arthroplasty of shoulder (09/28/2022), Arthroscopic repair of rotator cuff., Bunionectomy. Discharge Vitals Temperature (Temporal Artery) 36.5 ?C Heart Rate (Monitored) 60 Respiratory Rate 15 Blood Pressure 134/75 Medications What How Much When Instructions Next Dose Unchanged aspirin (aspirin 81 mg Oral EC Tab) 1 Tablets By Mouth Every day Unchanged atorvastatin (atorvastatin 40 mg Tab) 1 Tablets By Mouth Every day Unchanged fluoxetine (FLUoxetine 10 mg Cap) 1 Capsules By Mouth Every day Unchanged metoprolol (metoprolol 25 mg ER Tab) 1 Tablets By Mouth Every day Unchanged oxaprozin (oxaprozin 600 mg Tab) 1 Tablets By Mouth 2 times a day Unchanged spironolactone (spironolactone 25 mg Tab) 1 Tablets By Mouth Every day Unchanged tramadol 1 tab By Mouth As needed for as needed for pain Allergies codeine (nausea) Problems Ongoing - Any problem that you are currently receiving treatment for. H/O hypercholesterolemia Education Materials Common Emergency Awareness Tips IS IT A STROKE? Act FAST and Check for these signs: FACE Does the face look uneven? ARM Does one arm drift down? SPEECH Does their speech sound strange? TIME Call at any sign of stroke Heart Attack Signs Chest discomfort: Most heart attacks involve discomfort in the center of the chest and lasts more than a few minutes, or goes away and comes back. It can feel like uncomfortable pressure, squeezing, fullness or pain. Discomfort in upper body: Symptoms can include pain or discomfort in one or both arms, back, neck, jaw or stomach. Shortness of breath: With or without discomfort. Other signs: Breaking out in a cold sweat, nausea, or lightheaded. Remember, MINUTES DO MATTER. If you experience any of these heart attack warning signs, call to get immediate medical attention! Patient Survey You may receive a survey in the mail asking you about your stay with us. We want to hear from you, please share your experience with us by completing your survey. Thank you for choosing [facility]. Patient Portal You may access all of your results and other medical record information on our secure patient portal. If you are not signed up for this yet, please contact [facility] at [phone] to get signed up today. Patient Name: ERNST VEGA I have received this information and my questions have been answered. Patient/Operational Risk Consultant Name: Patient/Operational Risk Consultant Signature: Relationship to Patient: Witness Name/Signature: Date: Normal [facility] Comment on above: Result Comment: Elec tronically Signed By: Beatrice SILVESTRE, Antonina Mendoza\.br\Date and Time Signed: 05/23/23 12:06 EDT MRI Shoulder w/o Contrast Bridgette leger 05-23-2023 MRI Shoulder w/o Contrast Right Exam Date/Time: 05/23/2023 11:10 EDT Reason for Exam: [id number] Report IMPRESSION: Full-thickness rotator cuff tearing involving entire supraspinatus and portion of infraspinatus with associated muscle volume loss and rotator cuff arthropathy. Osteoarthritis as discussed. EXAMINATION: MRI Shoulder w/o Contrast Right HISTORY: Right shoulder pain with limited range of motion. TECHNIQUE: Routine non-contrast MRI of the shoulder , right side. Exam performed under anesthesia. COMPARISON: None RESULT: Some limitations from motion. Rotator Cuff Tendons: Full-thickness tearing involving entire supraspinatus with medial retraction of the torn fibers to near the glenohumeral joint, with underlying tendinosis. Full-thickness tearing involving some more anterior/junctional fibers of infraspinatus with the more posterior fibers appearing intact with underlying tendinosis and reactive cystic change at the insertion. Mild to moderate tendinosis involving subscapularis, without distinct tear. Teres minor appears intact. Long Head Biceps Tendon: Appears grossly intact with medial perching. Muscle: Mild to moderate volume loss involving supraspinatus and infraspinatus. Labrum: Diffuse fraying/tearing. Bones and Marrow: No evidence for fracture or marrow replacing process. Glenohumeral Joint: At least moderate areas of full-thickness chondral loss. Small osteophytes. Small joint effusion. Acromioclavicular Joint: Moderate to severe degenerative changes with undersurface osteophytes, subchondral cystic change. Other: Superior elevation of the humeral head with [id number] contact with the acromion consistent with rotator cuff arthropathy. Fluid extending into the subacromial subdeltoid region. Report Ordering Provider: Los Gonzalez FINAL REPORT Dictated: 05/23/2023 2:26 pm Robin Payan MD Signed (Electronic Signature): 05/23/2023 2:26 pm Signed by: Robin Payan MD Transcribed by: UMAIR Technologist: DONAVON Technical Comments None Hussain Arroyo [facility] Main OR PACU I Recordon 05-01 Main OR PACU I Record PACU Phase I Docum ent Type FT Summary Primary Physician: NONE, XXXX Finalized Date/Time: 05/23/23 13:30:53 Pt. Name: ERNST VEGA Addison Reyes/Sex: 1965 Female Med Rec #: [id number] Physician: Los Gonzalez DO Financial #: [id number] Pt. Type: A Room/Bed: [place] [address] Admit/Disch: 05/23/23 08:46:47 - 05/23/23 12:50:00 Institution: Case Times PACU I FT Pre-Care Text: Identifies barriers to communication and implements measures to provide psychological support Develops individualized plan of care, and ensures continuity of care Maintains patient's dignity and privacy, and maintains patient confidentiality Identifies and reports philosophical, cultural, and spiritual beliefs and values Identifies individual values and wishes concerning care Implements aseptic technique, and administers prescribed antibiotic therapy and immunizing agents as ordered Evaluates postoperative tissue perfusion Implements thermoregulation measures, and monitors body temperature Evaluates postoperative respiratory status Evaluates postoperative cardiac status Evaluates postoperative neurological status Assesses pain control, collaborated in initiating patient-controlled analgesia and implements alternative methods of pain control Verifies allergies, administers prescribed medications and solutions, evaluates response to medications Entry 1 In PACU I 05/23/23 11:18:00 Discharge from PACU 05/23/23 11:48:00 I Outcomes Met? Yes Last Modified By: Jossie Viveros RN 05/23/23 12:15:20 Post-Care Text: The patient demonstrates knowledge of the expected response to the operative or invasive procedure The patient's care is consistent with the individualized perioperative plan of care The patient's right to privacy is maintained The patient's value system, lifestyle, ethnicity, and culture are considered, respected, and incorporated into the perioperative plan of care The patient participates in decisions affecting his or her perioperative plan of care The patient is free from signs and symptoms of infection The patient has wound/tissue perfusion consistent with or improved from baseline levels established preoperatively The patient is at or returning to normothermia at the conclusion of the immediate postoperative period The patient's respiratory function is consistent with or improved from baseline levels established preoperatively The patient's cardiovascular status is consistent with or improved from baseline levels established preoperatively The patient's cardiovascular status is consistent with or improved from baseline levels established preoperatively The patient demonstrates and/or reports adequate pain control throughout the perioperative period The patient received appropriate medication(s), safely administered during the perioperative period General Comments: didnt need done, done outside of [place] Acuity Level PACU I FT Entry 1 Start Time 05/23/23 11:18:00 Stop Time 05/23/23 11:48:00 Acuity Level Acuity Level I Last Modified By: Jossie Viveros RN 05/23/23 12:15:33 Finalized By: Jossie Viveros RN Document Signatures Signed By: Jossie Viveros RN 05/23/23 12:15 Jossie Viveros RN 05/23/23 13:[address] [facility] Monitor Recordon 05-23-2023 Monitor Record [id number] Normal [facility] Monitor Record [id number]#[id number] Normal [facility] Patient Education - Texton 1 Patient Education - Text Normal [facility] Progress Note-Nurseon 2022 Progress Note-Nurse Left ASU and transpo rted patient on cart to MRI suite at 1021. Arrived to MRI suite at 1024. Patient moved over to MRI safe bed with help of MRI staff. MRI started at 1039 and ended at 1109. See anesthesia record for vital signs. Called PACU and left MRI suite at 1114, patient transported on cart by KONRAD Castellanos and ELIZABETH Fuentes. Patient arrived to PACU at 1118. Verbal and written handoff report given to PACU nurse. Normal [facility] Progress Note-Physicianon Progress Note-Physician Patient: ERNST VEGA BIA: [id number] Age: 57 years Sex: Female : 1965 Associated Diagnoses: None Author: Bimal Souza Jr., DO Postoperative Information Postoperative disposition: Postoperative disposition: To PACU. Optimetrix number: Optimetrix number [id number]. Anesthetic utilized: Monitored anesthesia care. Physical Examination Vital Signs 05/23/2023 11:54 EDT Heart Rate Monitored 60 bpm SpO2 99 % 05/23/2023 11:53 EDT Systolic Blood Pressure 134 mmHg Diastolic Blood Pressure 75 mmHg Mean Arterial Pressure, Monitered 94 mmHg 05/23/2023 11:45 EDT Temperature Temporal Artery 36.5 DegC Heart Rate Monitored 59 bpm LOW Respiratory Rate Monitored 15 br/min Systolic Blood Pressure 120 mmHg Diastolic Blood Pressure 75 mmHg SpO2 97 % 05/23/2023 11:35 EDT Heart Rate Monitored 60 bpm Respiratory Rate Monitored 15 br/min Systolic Blood Pressure 124 mmHg Diastolic Blood Pressure 75 mmHg SpO2 98 % 05/23/2023 11:30 EDT Heart Rate Monitored 62 bpm Heart Rate Monitored 63 bpm Respiratory Rate Monitored 20 br/min Respiratory Rate Monitored 27 br/min Systolic Blood Pressure 136 mmHg Diastolic Blood Pressure 110 mmHg HI SpO2 97 % SpO2 97 % 05/23/2023 11:25 EDT Heart Rate Monitored 61 bpm Heart Rate Monitored 58 bpm LOW Respiratory Rate Monitored 18 br/min Respiratory Rate Monitored 10 br/min Systolic Blood Pressure 138 mmHg Diastolic Blood Pressure 79 mmHg SpO2 98 % SpO2 99 % 05/23/2023 11:20 EDT Heart Rate Monitored 61 bpm Heart Rate Monitored 61 bpm Respiratory Rate Monitored 9 br/min Respiratory Rate Monitored 19 br/min Systolic Blood Pressure 134 mmHg Diastolic Blood Pressure 82 mmHg SpO2 98 % SpO2 98 % 05/23/2023 11:18 EDT Temperature Temporal Artery 36.1 DegC LOW Temperature Temporal Artery 36.1 DegC LOW Heart Rate Monitored 63 bpm Heart Rate Monitored 63 bpm Respiratory Rate 22 br/min HI Respiratory Rate Monitored 22 br/min Systolic Blood Pressure 134 mmHg Systolic Blood Pressure 134 mmHg Diastolic Blood Pressure 79 mmHg Diastolic Blood Pressure 79 mmHg SpO2 98 % SpO2 98 % Vital signs stable. Pain Assessment: Controlled. General: Awake, Alert, Appropriate. Respiratory: Adequate air exchange, Equal bilateral chest wall expansion, Non-labored. Cardiovascular: Stable, Normal peripheral perfusion. Neurological: Normal sensory function. Assessment Anesthetic outcome No anesthetic complications noted. Review / Management Condition: Stable. Plan Transfer/Discharge: Transfer/Discharge Discharge when meets criteria. Normal [facility] Comment on above: Result Comment: Elec tronically Signed By: Bimal Souza Jr., DO\.br\Date and Time Signed: 05/23/23 11:58 EDT Progress Note-Physician Patient: ERNST VEGA Age: 57 years Sex: Female : 1965 Associated Diagnoses: None Author: Bimal Souza Jr., DO Preoperative Information Anesthesia Preop Info NPO since midnight Anesthesia history: Patient history: No prior anesthetic problems. Informed consent: Signed by patient. Re-evaluation prior to induction: Initial evaluation reviewed: No significant change. Health Status Allergies: Nonallergic Reactions (Selected) Severity Not Documented Codeine- Nausea., Allergies (1) Active Reaction codeine nausea Current medications: (Selected) Inpatient Medications Ordered Lactated Ringers IV Leyla 1000 mL 1,000 mL: 1,000 mL, IV, 100 mL/hr, Routine, Start date 05/23/23 7:14:00 EDT, 10 hour(s), Total volume (mL): 1,000, 87.1 kg, 1.97, m2 Lactated Ringers IV Leyla 1000 mL 1,000 mL: 1,000 mL, IV, 150 mL/hr, Routine, Start date 05/23/23 9:00:00 EDT, 6.7 hour(s), Total volume (mL): 1,000, 87.1 kg, 1.97, m2 Documented Medications Documented FLUoxetine 10 mg Cap: 10 mg = 1 cap(s), Oral, Daily, Refills(s) 0, Anxiety aspirin 81 mg Oral EC Tab: 81 mg = 1 tab(s), Oral, Daily, Refills(s) 0, Prophylaxis atorvastatin 40 mg Tab: 40 mg = 1 tab(s), Oral, Daily, Refills(s) 0, High cholesterol metoprolol 25 mg ER Tab: 25 mg = 1 tab(s), Oral, Daily, Refills(s) 0, High blood pressure oxaprozin 600 mg Tab: 600 mg = 1 tab(s), Oral, BID, Refills(s) 0, Pain spironolactone 25 mg Tab: 25 mg = 1 tab(s), Oral, Daily, Refills(s) 0, High blood pressure tramadol: 1 tab, Oral, PRN as needed for pain, Refills(s) 0, Home Medications (7) Active aspirin 81 mg Oral EC Tab 81 mg = 1 tab(s), Oral, Daily atorvastatin 40 mg Tab 40 mg = 1 tab(s), Oral, Daily FLUoxetine 10 mg Cap 10 mg = 1 cap(s), Oral, Daily metoprolol 25 mg ER Tab 25 mg = 1 tab(s), Oral, Daily oxaprozin 600 mg Tab 600 mg = 1 tab(s), Oral, BID spironolactone 25 mg Tab 25 mg = 1 tab(s), Oral, Daily tramadol 1 tab, PRN, Oral , Medications (2) Active Scheduled: (0) Continuous: (2) Lactated Ringers 1,000 mL 1,000 mL, IV, 150 mL/hr Lactated Ringers 1,000 mL 1,000 mL, IV, 100 mL/hr PRN: (0) Problem list: All Problems H/O hypercholesterolemia / SNOMED CT 7229011878 / Confirmed Left shoulder pain / SNOMED CT 19932601 / Confirmed Resolved: Anxiety / SNOMED CT 86533979 Resolved: Hypertension / SNOMED CT 1369896274 Resolved: Post-menopause / SNOMED CT 523536736 Histories Past Medical History: No active or resolved past medical history items have been selected or recorded. Procedure history: Total arthroplasty of shoulder ([id number]) on 09/28/2022 at 57 Years. Arthroscopic repair of rotator cuff. ([id number]). Bunionectomy (20417551). Social History Social & Psychosocial Habits Alcohol 05/15/2023 Risk Assessment: Denies Alcohol Use Substance Abuse 05/15/2023 Risk Assessment: Denies Substance Abuse Tobacco 05/15/2023 Risk Assessment: Denies Tobacco Use . Physical Examination Airway: Mallampati classification: II (soft palate, fauces, uvula visible). Respiratory: Lungs are clear to auscultation, Respirations are non-labored. Cardiovascular: Regular rhythm. Review / Management Results review: Lab results 05/15/2023 14:29 EDT WBC 8.0 E9/L RBC 3.9 E12/L LOW HGB 11.1 gm/dL LOW Hct 33.5 % LOW MCV 85.5 fL MCH 28.4 pg MCHC 33.2 gm/dL RDW 16.2 % HI Platelet 374.0 E9/L MPV 8.8 fL Glucose Random 92 mg/dL BUN 23 mg/dL HI Creatinine 1.8 mg/dL HI eGFR 32 mL/min/1.73 m2 LOW Sodium Lvl 139 mmol/L Potassium Lvl 4.3 mmol/L Chloride 111 mmol/L CO2 22 mmol/L AGAP 10 mEq/L . ECG interpretation: SINUS RHYTHM LOW QRS VOLTAGE IN PRECORDIAL LEADS . Plan [employer] (ASA) physical status classification: Class III. Anesthetic Preoperative Plan: Anesthesia General. Normal [facility] Comment on above: Result Comment: Elec tronically Signed By: Bimal Souza Jr., DO\.br\Date and Time Signed: 05/23/23 07:19 EDT RAD - MRI Screening Formon 1 RAD - MRI Screening Form [id number]#1.00TIFF Normal [facility] BUNon 05-15-2023 Urea nitrogen [Mass/Vol] 23 mg/dL High 5-[address] [facility] Comment on above: Performed By: #### 2 283111, 8126952, 5973146, 1037702, 5849568, 62303280 ####[facility] [address] [place] [address] CBC w/Indiceson 05-15-2023 Erythrocyte distribution width (RBC) [Ratio] 16.2 % High 10.9-14.[address] [facility] Comment on above: Performed By: #### 2 363912, 2737267, 8045361, 7666099, 1471014, 29409615 ####[facility] [address] [place] [address] Hematocrit (Bld) [Volume fraction] 33.5 % Low 34.0-46.[address] [facility] Comment on above: Performed By: #### 2 055938, 0551831, 8615328, 7997426, 2295096, 28896035 ####[facility] [address] [place] [address] Hemoglobin (Bld) [Mass/Vol] 11.1 g/dL Low 12.0-16.[address] [facility] Comment on above: Performed By: #### 2 943178, 2681913, 9458405, 4088885, 9364340, 30719115 ####[facility] [address] [place] [address] MCH (RBC) [Entitic mass] 28.4 pg Normal 27.0-34.[address] [facility] Comment on above: Performed By: #### 2 966649, 7752996, 4699510, 3370444, 6239006, 90202887 ####[facility] [address] [place] [address] MCHC (RBC) [Mass/Vol] 33.2 g/dL Normal 31.4-36.0 [facility] Comment on above: Performed By: #### 2 770973, 1970931, 8058796, 8606791, 6160241, 27825662 ####[facility] [address] [place] [address] MCV (RBC) [Entitic vol] 85.5 fL Normal 80.0-100.[address] [facility] Comment on above: Performed By: #### 2 525503, 6308514, 8897652, 1784747, 2723505, 75533656 ####[address] [address] Platelet mean volume (Bld) [Entitic vol] 8.8 fL Normal 6.4-10.[address] [facility] Comment on above: Performed By: #### 2 936553, 0381980, 9234805, 9390524, 5336986, 82812638 ####[address] [place] [address] Platelets (Bld) [#/Vol] 374.0 E9/L Normal 150.0-500. [address] [facility] Comment on above: Performed By: #### 2 959632, 2043938, 6656039, 0142730, 1011449, 03957459 ####[facility] [address] [place] [address] RBC (Bld) [#/Vol] 3.9 E12/L Low 4.3-5.[address] [facility] Comment on above: Performed By: #### 2 121554, 0092285, 1713494, 4473975, 1781469, 36116061 ####[facility] [address] [place] [address] WBC corrected for nucl RBC Auto (Bld) [#/Vol] 8.0 E9/L Normal 4.0-11.[address] [facility] Comment on above: Performed By: #### 2 917589, 1020056, 8714966, 9066547, 5963915, 46491304 ####[facility] [address] [place] [address] Consent for Treatmenton 04-30 Consent for Treatment [id number]#1.00TIFF Normal [facility] Creatinineon 05-15-2023 Creatinine [Mass/Vol] 1.8 mg/dL High 0.5-1.3 [facility] Comment on above: Performed By: #### 2 257587, 6174226, 0581134, 3882843, 1899753, 55712589 ####[facility] [address] [place] [address] Glucoseon 05-15-2023 Glucose [Mass/Vol] 92 mg/dL Normal 55-[address] [facility] Comment on above: Performed By: #### 2 667508, 6104924, 9116913, 4719739, 9179409, 92132956 ####[facility] [address] [place] [address] Lyteson 05-15-2023 Anion gap [Moles/Vol] 10 mmol/L Normal 6-16 [facility] Comment on above: Performed By: #### 2 550582, 7089935, 5088864, 8270771, 3659315, 18015166 ####[facility] [address] [place] [address] Chloride [Moles/Vol] 111 mmol/L Normal 101-111 [facility] Comment on above: Performed By: #### 2 804407, 5656950, 2600793, 0210683, 9108035, 07161388 ####[facility] [address] [place] [address] CO2 [Moles/Vol] 22 mmol/L Normal 21-[address] [facility] Comment on above: Performed By: #### 2 231292, 9872990, 5752551, 1637471, 0347740, 63698388 ####[facility] [address] [place] [address] Potassium [Moles/Vol] 4.3 mmol/L Normal 3.5-5.3 [facility] Comment on above: Performed By: #### 2 398701, 7487978, 8471095, 5205592, 2599763, 67523759 ####[facility] [address] [place] [address] Sodium [Moles/Vol] 139 mmol/L Normal 135-[address] [facility] Comment on above: Performed By: #### 2 461545, 9577086, 3681822, 3521953, 6292416, 19232280 ####[facility] [address] [place] [address] eGFRon 05-15-2023 GFR/1.73 sq M.predicted among non-blacks MDRD (S/P/Bld) [Vol rate/Area] 32 mL/min/1.73 m2 Low >=[address] [facility] Comment on above: Order Comment: Order added by Discern Expert. Result Comment: Hyperbaric Tech serina kidney disease could be indicated at eGFR's of less than 60 mL/min/1.73m2. Kidney failure is indicated at less than 15 mL/min/1.73m2. Performed By: #### 2 307550, 0480066, 1605788, 4095562, 5233757, 67158984 ####[facility] [address] [place] [address] Physician Orderon 05-11-2023 Physician Order [id number]#1.00TIFF Normal [facility] Alanine aminotransferase [En zymatic activity/volume] in Serum or PlasmaOrdered By: Hugo Yates on 03-27-2023 ALT [Catalytic activity/Vol] 17 U/L 7-52 [facility] Albumin [Mass/volume] in Ser um or Plasma by Bromocresol green (BCG) dye binding methoOrdered By: Hugo Yates on 03-27-2023 Albumin BCG dye [Mass/Vol] 4.5 g/dL 3.5-5.7 [facility] Alkaline phosphatase [Enzyma tic activity/volume] in Serum or PlasmaOrdered By: Hugo Yates on 03-27-2023 ALP [Catalytic activity/Vol] 120 U/L 34-104 [facility] Aspartate aminotransferase [ Enzymatic activity/volume] in Serum or PlasmaOrdered By: Hugo Yates on 03-27-2023 AST [Catalytic activity/Vol] 18 U/L 13-39 [facility] Automated erythrocytes count in urine sediment (number/area)Ordered By: Hugo Yates on 03-27-2023 RBC Auto (Urine sed) [#/Area] 5-9 [HPF] 0-4 [facility] Automated leukocytes count i n urine sediment (number/area)Ordered By: Hugo Yates on 03-27-2023 WBC Auto (Urine sed) [#/Area] 1-2 [HPF] 0-4 [facility] Automated urine hyaline cast s count (number/volume)Ordered By: Hugo Yates on 03-27-2023 Hyaline casts Auto (U) [#/Vol] 1-2 [LPF] 0-1 [facility] Basophils Auto (Bld) [#/Vol] Ordered By: Hugo Yates on 03-27-2023 Basophils (Bld) [#/Vol] 0.1 10*3/uL 0.0-0.2 [facility] Basophils/100 WBC Auto (Bld) Ordered By: Hugo Yates on 03-27-2023 Basophils/100 WBC (Bld) 0.7 % . [facility] Bilirubin Test strip Ql (U)O rdered By: Hugo Yates on 03-27-2023 Bilirubin Ql (U) Negative Negative [facility] Bilirubin.total [Mass/volume ] in Serum or PlasmaOrdered By: Hugo Yates on 03-27-2023 Bilirubin [Mass/Vol] 0.5 mg/dL 0.3-1.0 [facility] C reactive protein [Mass/vol ume] in Serum or PlasmaOrdered By: Hugo Yates on 03-27-2023 CRP [Mass/Vol] 1.2 mg/dL 0.0-0.5 [facility] Calcium [Mass/volume] in Ser um or PlasmaOrdered By: Hugo Yates on 03-27-2023 Calcium [Mass/Vol] 9.9 mg/dL 8.6-10.3 [facility] Carbon dioxide, total [Moles /volume] in Serum or PlasmaOrdered By: Hugo Yates on 03-27-2023 CO2 [Moles/Vol] 25.3 mmol/L 21.0-31.0 [facility] Casts typing in urine sedime nt by light microscopyOrdered By: Hugo Yates on 03-27-2023 Casts LM Nom (Urine sed) None seen [LPF] None Seen [facility] Chloride [Moles/volume] in S luz or PlasmaOrdered By: Hugo Yates on 03-27-2023 Chloride [Moles/Vol] 104 mmol/L 98-107 [facility] Color Auto (U)Ordered By: Sheree Yates on 03-27-2023 Color (U) Yellow Yellow [facility] Creatinine [Mass/volume] in Serum or PlasmaOrdered By: Hugo Yates on 03-27-2023 Creatinine [Mass/Vol] 1.85 mg/dL 0.60-1.20 [facility] Eosinophils Auto (Bld) [#/Vo l]Ordered By: Hugo Yates on 03-27-2023 Eosinophils (Bld) [#/Vol] 0.2 10*3/uL 0.0-0.45 [facility] Eosinophils/100 WBC Auto (Bl d)Ordered By: Hugo Yates on 03-27-2023 Eosinophils/100 WBC (Bld) 2.4 % . [facility] Erythrocyte distribution wid th Auto (RBC) [Ratio]Ordered By: Hugo Yates on 03-27-2023 Erythrocyte distribution width (RBC) [Ratio] 15.3 % 11.9-15.3 [facility] Erythrocyte sedimentation ra te by Photometric methodOrdered By: Hugo Yates on 03-27-2023 ESR Photometric method (Bld) [Velocity] 46 mm/hr 0-29 [facility] Globulin Calc (S) [Mass/Vol] Ordered By: Hugo Yates on 03-27-2023 Globulin (S) [Mass/Vol] 2.8 g/dL [facility] Glucose [Mass/volume] in Ser um or PlasmaOrdered By: Hugo Yates on 03-27-2023 Glucose [Mass/Vol] 107 mg/dL 70-100 [facility] Comment on above: ADA recommended refe rence rangeRandom Glucose Reference Range is dependent on time and content of last meal. Glucose of more than 200 mg/dL in a nonstressed, ambulatory subject supports the diagnosis of Diabetes Mellitus. Hematocrit Auto (Bld) [Volum e fraction]Ordered By: Hugo Yates on 03-27-2023 Hematocrit (Bld) [Volume fraction] 37.3 % 34.0-46.4 [facility] Hemoglobin [Mass/volume] in BloodOrdered By: Hugo Yates on 03-27-2023 Hemoglobin (Bld) [Mass/Vol] 12.2 g/dL 11.8-15.4 [facility] Ketones Auto test strip (U) [Mass/Vol]Ordered By: Hugo Yates on 03-27-2023 Ketones (U) [Mass/Vol] Negative Negative [facility] Leukocytes [#/volume] correc john for nucleated erythrocytes in Blood by Automated counOrdered By: Huog Yates on 03-27-2023 WBC corrected for nucl RBC Auto (Bld) [#/Vol] 7.6 10*3/uL 3.8-11.6 [facility] Lymphocytes Auto (Bld) [#/Vo l]Ordered By: Hugo Yates on 03-27-2023 Lymphocytes (Bld) [#/Vol] 1.9 10*3/uL 1.00-4.8 [facility] Lymphocytes/100 WBC Auto (Bl d)Ordered By: Hugo Yates on 03-27-2023 Lymphocytes/100 WBC (Bld) 24.8 % . [facility] MCH Auto (RBC) [Entitic mass ]Ordered By: Hugo Yates on 03-27-2023 MCH (RBC) [Entitic mass] 27.3 pg 24.7-34.3 [facility] MCHC Auto (RBC) [Mass/Vol]Or dered By: Hugo aYtes on 03-27-2023 MCHC (RBC) [Mass/Vol] 32.7 g/dL 32.0-35.0 [facility] MCV Auto (RBC) [Entitic vol] Ordered By: Hugo Yates on 03-27-2023 MCV (RBC) [Entitic vol] 83.5 fL 80-100 [facility] Monocytes Auto (Bld) [#/Vol] Ordered By: Hugo Yates on 03-27-2023 Monocytes (Bld) [#/Vol] 0.4 10*3/uL 0.0-0.8 [facility] Monocytes/100 WBC Auto (Bld) Ordered By: Hugo Yates on 03-27-2023 Monocytes/100 WBC (Bld) 5.0 % . [facility] Neutrophils Auto (Bld) [#/Vo l]Ordered By: Hugo Yates on 03-27-2023 Neutrophils (Bld) [#/Vol] 5.1 10*3/uL 1.8-7.7 [facility] Neutrophils/100 WBC Auto (Bl d)Ordered By: Hugo Yates on 03-27-2023 Neutrophils/100 WBC (Bld) 67.1 % . [facility] Nitrite Test strip Ql (U)Ord ered By: Hugo Yates on 03-27-2023 Nitrite Ql (U) Negative Negative [facility] No Panel InformationOrdered By: Hugo Yates on 03-27-2023 Estimated GFR (CKD-EPI) 31.019 mL/Min [facility] Creatinine Clearance (Chem N/A [facility] Nucleated erythrocytes [Pres ence] in Blood by Automated countOrdered By: Hugo Yates on 03-27-2023 Nucleated RBC Auto Ql (Bld) 0.1 /100{WBC} 0-0.5 [facility] Platelet mean volume Auto (B ld) [Entitic vol]Ordered By: Hugo Yates on 03-27-2023 Platelet mean volume (Bld) [Entitic vol] 9.2 fL 6.3-10.7 [facility] Platelets Auto (Bld) [#/Vol] Ordered By: Hugo Yates on 03-27-2023 Platelets (Bld) [#/Vol] 391 10*3/uL 150-450 [facility] Potassium [Moles/volume] in Serum or PlasmaOrdered By: Hugo Yates on 03-27-2023 Potassium [Moles/Vol] 4.1 mmol/L 3.5-5.1 [facility] Protein Auto test strip (U) [Mass/Vol]Ordered By: Hugo Yates on 03-27-2023 Protein (U) [Mass/Vol] Negative Negative [facility] Protein [Mass/volume] in Ser um or PlasmaOrdered By: Hugo Yates on 03-27-2023 Protein [Mass/Vol] 7.3 g/dL 6.4-8.9 [facility] RBC Auto (Bld) [#/Vol]Ordere d By: Hugo Yates on 03-27-2023 RBC (Bld) [#/Vol] 4.47 10*6/uL 3.60-5.00 [facility] Serum or plasma albumin/glob ulin mass ratioOrdered By: Hugo Yates on 03-27-2023 Albumin/Globulin [Mass ratio] 1.6 {ratio} [facility] Serum or plasma anion gap de terminationOrdered By: Hugo Yates on 03-27-2023 Anion gap [Moles/Vol] 15.8 mmol/L 6.0-15.0 [facility] Sodium [Moles/volume] in Ser um or PlasmaOrdered By: Hugo Yates on 03-27-2023 Sodium [Moles/Vol] 141 mmol/L 136-145 [facility] Specific gravity Auto test s trip (U) [Rel density]Ordered By: Hugo Yates on 03-27-2023 Specific gravity (U) [Rel density] 1.016 1.001-1.03 0 [facility] Squamous epithelial cells de tection in urine sediment by light microscopyOrdered By: Hugo Yates on 03-27-2023 Epithelial cells.squamous LM Ql (Urine sed) 5-9 [HPF] 0-2 [facility] Urea nitrogen [Mass/volume] in Serum or PlasmaOrdered By: Hugo Yates on 03-27-2023 Urea nitrogen [Mass/Vol] 27 mg/dL 7-25 [facility] Urine bacteria detection by automated methodOrdered By: Hugo Yates on 03-27-2023 Bacteria Auto Ql (U) None seen None Seen [facility] Urine clarity by refractomet ry automatedOrdered By: Hugo Yates on 03-27-2023 Clarity Refractometry automated (U) Cloudy Clear [facility] Urine glucose measurement by automated test strip (mass/volume)Ordered By: Hugo Yates on 03-27-2023 Glucose Auto test strip (U) [Mass/Vol] Normal mg/dL Normal [facility] Urine hemoglobin detection b y automated test stripOrdered By: Hugo Yates on 03-27-2023 Hemoglobin Auto test strip Ql (U) Negative Negative [facility] Urine leukocyte esterase det ection by automated test stripOrdered By: Hugo Yates on 03-27-2023 Leukocyte esterase Auto test strip Ql (U) 1+ Negative [facility] Urobilinogen Auto test strip (U) [Mass/Vol]Ordered By: Hugo Yates on 03-27-2023 Urobilinogen (U) [Mass/Vol] Normal mg/dL Normal [facility] WBC Auto (Bld) [#/Vol]Ordere d By: Hugo Yates on 03-27-2023 WBC (Bld) [#/Vol] 7.6 10*3/uL 3.8-11.6 [facility] pH Auto test strip (U)Ordere d By: Hugo Yates on 03-27-2023 pH (U) 6.0 [pH] 5.0-9.0 [facility] Actin smooth muscle IgG Ab [ Units/volume] in SerumOrdered By: Hugo Yates on 02-07-2023 Actin smooth muscle IgG Qn (S) 4 Units 0-19 [facility] Comment on above: Negative 0 - 19 Weak positive 20 - 30 Moderate to strong positive >30 Actin Antibodies are found in 52-85% of patients with autoimmune hepatitis or chronic active hepatitis and in 22% of patients with primary biliary cirrhosis. Alanine aminotransferase [En zymatic activity/volume] in Serum or PlasmaOrdered By: Hugo Yates on 02-07-2023 ALT [Catalytic activity/Vol] 14 U/L 7-52 [facility] Albumin [Mass/volume] in Ser um or PlasmaOrdered By: Hugo Yates on 02-07-2023 Albumin [Mass/Vol] 3.7 g/dL 2.9-4.4 [facility] Alkaline phosphatase [Enzyma tic activity/volume] in Serum or PlasmaOrdered By: Hugo Yates on 02-07-2023 ALP [Catalytic activity/Vol] 145 U/L 34-104 [facility] Aspartate aminotransferase [ Enzymatic activity/volume] in Serum or PlasmaOrdered By: Hugo Yates on 02-07-2023 AST [Catalytic activity/Vol] 16 U/L 13-39 [facility] Blood Mycobacterium tubercul osis tuberculin stimulated gamma interferon detectionOrdered By: Hugo Yates on 02-07-2023 M. tuberculosis tuberculin stim IFN-g Ql (Bld) See comment . [facility] Comment on above: QuantiFERON-TB Gold Plus is a qualitative indirect test forM tuberculosis infection (including disease) and isintended for use in conjunction with risk assessment,radiography, and other medical and diagnostic evaluations.The QuantiFERON-TB Gold Plus result is determined bysubtracting the Nil value from either TB antigen (Ag)value. The Mitogen tube serves as a control for the test. M. tuberculosis tuberculin stim IFN-g Ql (Bld) 0.02 [IU]/mL . [facility] M. tuberculosis tuberculin stim IFN-g Ql (Bld) 0.01 [IU]/mL . [facility] Blood mitogen stimulated kristina ma interferon measurement (units/volume)Ordered By: Hugo Yates on 02-07-2023 Mitogen stimulated gamma interferon Qn (Bld) >10.00 [IU]/mL . [facility] Hepatitis B virus surface Ag [Presence] in Serum or Plasma by ImmunoassayOrdered By: Hugo Yates on 02-07-2023 HBV surface Ag IA Ql Negative Negative [facility] Hepatitis C virus IgG Ab [Pr esence] in Serum or Plasma by ImmunoassayOrdered By: Hugo Yates on 02-07-2023 HCV IgG IA Ql Non-Reactive Non Reactive [facility] IgA [Mass/volume] in Serum o r PlasmaOrdered By: Hugo Yates on 02-07-2023 IgA [Mass/Vol] 103 mg/dL 87-352 [facility] IgG [Mass/volume] in Serum o r PlasmaOrdered By: Hugo Yates on 02-07-2023 IgG [Mass/Vol] 837 mg/dL 586-1602 [facility] IgM [Mass/volume] in Serum o r PlasmaOrdered By: Hugo Yates on 02-07-2023 IgM [Mass/Vol] 88 mg/dL 26-217 [facility] Comment on above: Performed at: [facility] [place] [id number] Director: Ermias Madrid PhD, Phone: [phone] Mycobacterium tuberculosis s timulated gamma interferon [Interpretation] in Blood QualOrdered By: Hugo Yates on 02-07-2023 M. tuberculosis stim IFN-g Ql (Bld) [Interp] Negative Negative [facility] Comment on above: No response to M tub erculosis antigens detected.Infection with M tuberculosis is unlikely, but high riskindividuals should be considered for additional testing(ATS/IDSA/CDC Clinical Practice Guidelines, 2017). Thereference range is an Antigen minus Nil result of <0.35IU/mL.The specimen received for QuantiFERON testing was incubatedby the ordering institution. Specific procedures outlinedin our Directory of Services and in the package insert forthe QuantiFERON Gold (In Tube) test must be followed toenable for proper stimulation of cells for the productionof interferon gamma. Chemiluminescence immunoassaymethodologyPerformed at: [facility] [id number] [place], [place] [id number] Director: Ermias Madrid PhD, Phone: [phone] No Panel InformationOrdered By: Hugo Yates on 02-07-2023 Hepatitis B Core Total Antibody Negative Negative [facility] Comment on above: Performed at: [facility] [address] [id number] Director: Ermias Madrid PhD, Phone: [phone] Hepatitis C Interpretation See comment . [facility] Comment on above: Not infected with HC V unless early or acute infection issuspected (which may be delayed in an immunocompromisedindividual), or other evidence exists to indicate HCVinfection. Hepatitis C RNA Quantitative N/A [facility] Protein Electrophoresis M-Mj Not observed g/dL Not Observed [facility] Protein Electrophoresis Note See comment . [facility] Comment on above: Protein electrophore sis scan will follow via computer,mail, or mobile home installer delivery. Serum Immunofixation See comment . [facility] Comment on above: No monoclonality det ected. Parathyrin.intact [Mass/volu me] in Serum or PlasmaOrdered By: Hugo Yates on 02-07-2023 Parathyrin.intact [Mass/Vol] 50.4 pg/mL [facility] Protein [Mass/volume] in Ser um or PlasmaOrdered By: Hugo Yates on 02-07-2023 Protein [Mass/Vol] 7.1 g/dL 6.0-8.5 [facility] Serum angiotensin converting enzyme (CURT) measurementOrdered By: Hugo Yates on 02-07-2023 Angiotensin converting enzyme [Catalytic activity/Vol] 44 U/L [facility] Comment on above: Performed at: [facility] [address] [id number] Director: Ermias Madrid PhD, Phone: [phone] Serum globulin measurement ( mass/volume)Ordered By: Hugo Yates on 02-07-2023 Globulin (S) [Mass/Vol] 3.4 g/dL 2.2-3.9 [facility] Serum hepatitis B virus surf curt antibody detectionOrdered By: Hugo Yates on 02-07-2023 HBV surface Ab Ql (S) Non-Reactive . [facility] Comment on above: Non Reactive: Incons istent with immunity, less than 10 mIU/mL Reactive: Consistent with immunity, greater than 9.9 mIU/mL Serum mitochondria M2 IgG an tibody assay (units/volume)Ordered By: Hugo Yates on 02-07-2023 Mitochondria M2 IgG Qn (S) <20.0 Units 0.0-20.0 [facility] Comment on above: Negative 0.0 - 20.0 Equivocal 20.1 - 24.9 Positive >24.9Mitochondrial (M2) Antibodies are found in 90-96% ofpatients with primary biliary cirrhosis.Performed at: [facility] [id number] Director: Ermias Madrid PhD, Phone: [phone] Serum or plasma albumin/glob ulin mass ratioOrdered By: Hugo Yates on 02-07-2023 Albumin/Globulin [Mass ratio] 1.1 {ratio} 0.7-1.7 [facility] Serum or plasma alpha 1 glob ulin measurement by electrophoresis (mass/volume)Ordered By: Hugo Yates on 02-07-2023 Alpha 1 globulin Elph [Mass/Vol] 0.3 g/dL 0.0-0.4 [facility] Serum or plasma alpha 2 glob ulin measurement by electrophoresis (mass/volume)Ordered By: Hugo Yates on 02-07-2023 Alpha 2 globulin Elph [Mass/Vol] 1.1 g/dL 0.4-1.0 [facility] Serum or plasma beta globuli n measurement by electrophoresis (mass/volume)Ordered By: Hugo Yates on 02-07-2023 Beta globulin Elph [Mass/Vol] 1.2 g/dL 0.7-1.3 [facility] Serum or plasma gamma globul in measurement by electrophoresis (mass/volume)Ordered By: Hugo Yates on 02-07-2023 Gamma globulin Elph [Mass/Vol] 0.8 g/dL 0.4-1.8 [facility] Whole blood measurement of M ycobacterium tuberculosis stimulated gamma interferon relOrdered By: Hugo Yates on 02-07-2023 M. tuberculosis stim IFN-g by CD4+ CD8+ T-cells corrected for background Qn (Bld) 0.01 [IU]/mL . [facility] Alanine aminotransferase [En zymatic activity/volume] in Serum or PlasmaOrdered By: Hugo Yates on 12-07-2022 ALT [Catalytic activity/Vol] 28 U/L 7-52 [facility] Albumin [Mass/volume] in Ser um or Plasma by Bromocresol green (BCG) dye binding methoOrdered By: Hugo Yates on 12-07-2022 Albumin BCG dye [Mass/Vol] 4.5 g/dL 3.5-5.7 [facility] Alkaline phosphatase [Enzyma tic activity/volume] in Serum or PlasmaOrdered By: Hugo Yates on 12-07-2022 ALP [Catalytic activity/Vol] 160 U/L 34-104 [facility] Aspartate aminotransferase [ Enzymatic activity/volume] in Serum or PlasmaOrdered By: Hugo Yates on 12-07-2022 AST [Catalytic activity/Vol] 26 U/L 13-39 [facility] Basophils Auto (Bld) [#/Vol] Ordered By: Hugo Yates on 12-07-2022 Basophils (Bld) [#/Vol] 0.1 10*3/uL 0.0-0.2 [facility] Basophils/100 WBC Auto (Bld) Ordered By: Hugo Yates on 12-07-2022 Basophils/100 WBC (Bld) 0.7 % . [facility] Bilirubin.total [Mass/volume ] in Serum or PlasmaOrdered By: Hugo Yates on 12-07-2022 Bilirubin [Mass/Vol] 0.5 mg/dL 0.3-1.0 [facility] C reactive protein [Mass/vol ume] in Serum or PlasmaOrdered By: Hugo Yates on 12-07-2022 CRP [Mass/Vol] 1.3 mg/dL 0.0-0.5 [facility] Calcium [Mass/volume] in Ser um or PlasmaOrdered By: Hugo Yates on 12-07-2022 Calcium [Mass/Vol] 9.4 mg/dL 8.6-10.3 [facility] Carbon dioxide, total [Moles /volume] in Serum or PlasmaOrdered By: Hugo Yates on 12-07-2022 CO2 [Moles/Vol] 28.5 mmol/L 21.0-31.0 [facility] Chloride [Moles/volume] in S luz or PlasmaOrdered By: Hugo Yates on 12-07-2022 Chloride [Moles/Vol] 101 mmol/L 98-107 [facility] Creatinine [Mass/volume] in Serum or PlasmaOrdered By: Hugo Yates on 12-07-2022 Creatinine [Mass/Vol] 1.15 mg/dL 0.60-1.20 [facility] Eosinophils Auto (Bld) [#/Vo l]Ordered By: Hugo Yates on 12-07-2022 Eosinophils (Bld) [#/Vol] 0.3 10*3/uL 0.0-0.45 [facility] Eosinophils/100 WBC Auto (Bl d)Ordered By: Hugo Yates on 12-07-2022 Eosinophils/100 WBC (Bld) 3.2 % . [facility] Erythrocyte distribution wid th Auto (RBC) [Ratio]Ordered By: Hugo Yates on 12-07-2022 Erythrocyte distribution width (RBC) [Ratio] 14.2 % 11.9-15.3 [facility] Erythrocyte sedimentation ra te by Photometric methodOrdered By: Hugo Yates on 12-07-2022 ESR Photometric method (Bld) [Velocity] 51 mm/hr 0-29 [facility] Globulin Calc (S) [Mass/Vol] Ordered By: Hugo Yates on 12-07-2022 Globulin (S) [Mass/Vol] 2.9 g/dL [facility] Glucose [Mass/volume] in Ser um or PlasmaOrdered By: Hugo Yates on 12-07-2022 Glucose [Mass/Vol] 104 mg/dL 70-100 [facility] Comment on above: ADA recommended refe rence rangeRandom Glucose Reference Range is dependent on time and content of last meal. Glucose of more than 200 mg/dL in a nonstressed, ambulatory subject supports the diagnosis of Diabetes Mellitus. Hematocrit Auto (Bld) [Volum e fraction]Ordered By: Hugo Yates on 12-07-2022 Hematocrit (Bld) [Volume fraction] 39.2 % 34.0-46.4 [facility] Hemoglobin [Mass/volume] in BloodOrdered By: Hugo Yates on 12-07-2022 Hemoglobin (Bld) [Mass/Vol] 12.9 g/dL 11.8-15.4 [facility] Leukocytes [#/volume] correc john for nucleated erythrocytes in Blood by Automated counOrdered By: Hugo Yates on 12-07-2022 WBC corrected for nucl RBC Auto (Bld) [#/Vol] 8.1 10*3/uL 3.8-11.6 [facility] Lymphocytes Auto (Bld) [#/Vo l]Ordered By: Hugo Yates on 12-07-2022 Lymphocytes (Bld) [#/Vol] 2.5 10*3/uL 1.00-4.8 [facility] Lymphocytes/100 WBC Auto (Bl d)Ordered By: Hugo Yates on 12-07-2022 Lymphocytes/100 WBC (Bld) 30.7 % . [facility] MCH Auto (RBC) [Entitic mass ]Ordered By: Hugo Yates on 12-07-2022 MCH (RBC) [Entitic mass] 28.0 pg 24.7-34.3 [facility] MCHC Auto (RBC) [Mass/Vol]Or dered By: Hugo Yates on 12-07-2022 MCHC (RBC) [Mass/Vol] 33.0 g/dL 32.0-35.0 [facility] MCV Auto (RBC) [Entitic vol] Ordered By: Hugo Yates on 12-07-2022 MCV (RBC) [Entitic vol] 85.0 fL 80-100 [facility] Monocytes Auto (Bld) [#/Vol] Ordered By: Hugo Yates on 12-07-2022 Monocytes (Bld) [#/Vol] 0.5 10*3/uL 0.0-0.8 [facility] Monocytes/100 WBC Auto (Bld) Ordered By: Hugo Yates on 12-07-2022 Monocytes/100 WBC (Bld) 6.1 % . [facility] Neutrophils Auto (Bld) [#/Vo l]Ordered By: Hugo Yates on 12-07-2022 Neutrophils (Bld) [#/Vol] 4.8 10*3/uL 1.8-7.7 [facility] Neutrophils/100 WBC Auto (Bl d)Ordered By: Hugo Yates on 12-07-2022 Neutrophils/100 WBC (Bld) 59.3 % . [facility] No Panel InformationOrdered By: Hugo Yates on 12-07-2022 Estimated GFR (CKD-EPI) 54.876 mL/Min [facility] Creatinine Clearance (Chem N/A [facility] Nucleated erythrocytes [Pres ence] in Blood by Automated countOrdered By: Hugo Yates on 12-07-2022 Nucleated RBC Auto Ql (Bld) 0.2 /100{WBC} 0-0.5 [facility] Platelet mean volume Auto (B ld) [Entitic vol]Ordered By: Hugo Yates on 12-07-2022 Platelet mean volume (Bld) [Entitic vol] 9.0 fL 6.3-10.7 [facility] Platelets Auto (Bld) [#/Vol] Ordered By: Hugo Yates on 12-07-2022 Platelets (Bld) [#/Vol] 386 10*3/uL 150-450 [facility] Potassium [Moles/volume] in Serum or PlasmaOrdered By: Hugo Yates on 12-07-2022 Potassium [Moles/Vol] 3.2 mmol/L 3.5-5.1 [facility] Protein [Mass/volume] in Ser um or PlasmaOrdered By: Hugo Yates on 12-07-2022 Protein [Mass/Vol] 7.4 g/dL 6.4-8.9 [facility] RBC Auto (Bld) [#/Vol]Ordere d By: Hugo Yates on 12-07-2022 RBC (Bld) [#/Vol] 4.62 10*6/uL 3.60-5.00 [facility] Serum or plasma albumin/glob ulin mass ratioOrdered By: Hugo Yates on 12-07-2022 Albumin/Globulin [Mass ratio] 1.6 {ratio} [facility] Serum or plasma anion gap de terminationOrdered By: Hugo Yates on 12-07-2022 Anion gap [Moles/Vol] 14.7 mmol/L 6.0-15.0 [facility] Sodium [Moles/volume] in Ser um or PlasmaOrdered By: Hugo Yates on 12-07-2022 Sodium [Moles/Vol] 141 mmol/L 136-145 [facility] Urea nitrogen [Mass/volume] in Serum or PlasmaOrdered By: Hugo Yates on 12-07-2022 Urea nitrogen [Mass/Vol] 23 mg/dL 7-25 [facility] WBC Auto (Bld) [#/Vol]Ordere d By: Hugo Yates on 12-07-2022 WBC (Bld) [#/Vol] 8.1 10*3/uL 3.8-11.6 [facility] BLOOD BANKOrdered By: Valeria Rios on 09-28-2022 ABO/Rh Interp Positive Invalid Interpretation Code [facility] BB Subsection ABSC Gel Interp Negative (09/28/22 8:46 AM) Normal [facility] Subsection CHEMISTRYOrdered By: Lab ROP User on 09-28-2022 Glucose [Mass/Vol] 177 mg/dL High 55 - 99 mg/dL [facility] POC Subsection Comment on above: Result Comment: Nicolas omalley RN/MD POC Device SN [id number] Invalid Interpretation Code [facility] POC Subsection POC User ID [id number] Invalid Interpretation Code [facility] POC Subsection POC Username KALIA CAMACHO Invalid Interpretation Code [facility] POC Subsection CHEMISTRYOrdered By: SYSTEM SYSTEM on 09-28-2022 Potassium [Moles/Vol] 2.9 mmol/L Low 3.5 - 5.3 mmol/L [facility] [place] CT SHOULDER LEFT W/O CONTRAS Ton 09-21-2022 CT SHOULDER LEFT W/O CONTRAST HISTORY: Left shoulder osteoarthritis TECHNIQUE: Multiple contiguous axial images were obtained of the left upper extremity utilizing Arthrex protocol. Multiplanar reformats were obtained. All CT scans at this facility use dose modulation, iterative reconstruction, and/or weight based dosing when appropriate to reduce radiation dose to as low as reasonably achievable. COMPARISON: Shoulder radiographs 08/25/2022 and MRI of the shoulder 07/26/2022. FINDINGS: Degenerative changes including joint space narrowing and marginal osteophyte formation of the right glenohumeral joint. No acute fracture. Mild degenerative changes of the acromioclavicular joint. Postsurgical changes of rotator cuff repair. High riding humeral head compatible with the patient's known full-thickness tear of supraspinatus tendon. IMPRESSION: Left shoulder osteoarthritis. Report reported and signed by Todd Aguilar on 09/21/2022 1538 Normal [facility] [employer]ter[employer] T[employer]or MRI Shoulder w/o Lefton -2 MRI Shoulder w/o Left HISTORY: Shoulder pain TECHNIQUE: Multiplanar multisequence MRI of the shoulder was performed without contrast. COMPARISON: Shoulder radiographs 04/11/2022 and shoulder MRI 02/01/2022. FINDINGS: Mild degenerative changes of the acromioclavicular joint without undersurface osteophyte formation. The acromion is slightly curved. Coracoclavicular ligament intact. Small amount of subacromial/subdeltoid bursal fluid. Postsurgical changes of rotator cuff repair. Essentially full-thickness tear of distal supraspinatus tendon with some abnormal appearing anterior fibers remaining intact. Retraction of torn fibers up to approximately 4 cm from the footprint. Moderate infraspinatus and subscapularis tendinosis. Teres minor tendon is intact. Moderate atrophy and fatty infiltration of supraspinatus and infraspinatus muscles. High-grade partial tearing of the intra-articular and proximal extra articular long head biceps tendon. The biceps tendon resides within the bicipital groove. Anterior superior through posterior superior labral degeneration/tearing. Full-thickness cartilage loss of the superomedial humeral head with underlying bone marrow edema. High-grade partial thickness cartilage loss of the superior glenoid. Small medial humeral head marginal osteophyte formation. Small glenohumeral joint effusion with synovitis and/or numerous tiny loose bodies within the axillary recess. IMPRESSION: Essentially full-thickness tear of distal supraspinatus tendon. Moderate infraspinatus and subscapularis tendinosis. Moderate atrophy and fatty infiltration of supraspinatus and infraspinatus muscles. High-grade partial tearing of the long head biceps tendon. Moderate glenohumeral osteoarthritis. Report reported and signed by Todd Aguilar on 07/26/2022 1255 Normal [facility] MRI Shoulder w/o Lefton 07-0 MRI Shoulder w/o Left HISTORY: Chronic i ncreasing left shoulder pain with decreased range of motion. TECHNIQUE: Routine non-contrast MRI of the shoulder , left side COMPARISON: None RESULT: Rotator Cuff Tendons: Full-thickness tearing involving entire supraspinatus with medial retraction to the torn fibers to near the acromion with underlying tendinosis. Small area of interstitial tearing involving infraspinatus without distinct full-thickness tear with underlying tendinosis. Mild to moderate tendinosis involving supraspinatus, without distinct tear. Teres minor appears intact. Long Head Biceps Tendon: Appears intact with medial subluxation and intra-articular tendinosis. Muscle: Mild to moderate volume loss involving supraspinatus. Labrum: Diffuse fraying. Bones and Marrow: No evidence of fracture or bone marrow replacing process. Glenohumeral Joint: Glenohumeral osteophytes with probable small areas of chondral loss. No joint effusion. Acromioclavicular Joint: Moderate degenerative changes with undersurface osteophytes. Other: Fluid extending into the subacromial subdeltoid bursa. Superior elevation of the humeral head with [id number] contact with the acromion consistent with rotator cuff arthropathy. IMPRESSION: Full-thickness tearing involving entire supraspinatus. Associated medial retraction and muscle volume loss. Report reported and signed by Robin Payan on 02/01/2022 1535 Normal [facility] Hand [employer]terations [employer]or MG MAMM SCREEN 3D PARISA CADon 12-06-2021 MG MAMM SCREEN 3D PARISA CAD Patient: ERNST VEGA Exam Date: 12/06/2021 : 1965 Gender:F Ordering : KAYE BAY Admission #: [id number] Family : Order #: [id number] CLICK HERE TO VIEW EXAM RADIOLOGY REPORT PROCEDURE: MAMMOGRAM SCREENING 3D BILATERAL CAD COMPARISON: MG MAMM SCREEN PARISA W CAD, 08/23/2018. MG MAMM PARISA SCRN W CAD DIG, 07/15/2016. INDICATIONS: Screening mammography Calculator Name NCI Breast Cancer Risk Assessment Tool 5 Year Breast Cancer Risk 1.70% Lifetime Breast Cancer Risk 9.60% Personal Breast Cancer No Personal Ovarian Cancer No Treatments None Family Cancers None LOCATION: [facility] BREAST COMPOSITION: Scattered areas fibroglandular density. FINDINGS: DIAGNOSTIC CATEGORY 1--NEGATIVE. RIGHT BREAST: No significant suspicious finding. No significant change has occurred. LEFT BREAST: No significant suspicious finding. No significant change has occurred. RECOMMENDATIONS: ROUTINE MAMMOGRAM AND CLINICAL EVALUATION IN 12 MONTHS. PLEASE NOTE: A NORMAL MAMMOGRAM DOES NOT EXCLUDE THE POSSIBILITY OF BREAST CANCER. A CLINICALLY SUSPICIOUS PALPABLE LUMP SHOULD BE BIOPSIED. Dictated by: Jourdan Yao M.D. on 12/06/2021 at 13:26 Approved by: Jourdan Yao M.D. on 12/06/2021 at 13:29 Normal [facility] Vital Signs Date Time Vital Sign Value Performing Clinician Facility 09-10-2024 12:41-0500 Body height 157.5 cm Kaye Hermosillo [employer] Work Phone: [facility] 09-10-2024 12:41-0500 Body mass index (BMI) [Ratio] 34.13 kg/m2 Kaye Hermosillo [employer] Work Phone: [facility] 09-10-2024 12:41-0500 Body temperature 97.9 [degF] Kaye Hermosillo [employer] Work Phone: [facility] 09-10-2024 12:41-0500 Body weight 84.64 kg Kaye Hermosillo [employer] Work Phone: [facility] 09-10-2024 12:41-0500 Diastolic blood pressure 78 mm[Hg] Kaye Hermosillo [employer] Work Phone: [facility] 09-10-2024 12:41-0500 Heart rate 77 /min Kaye Hermosillo [employer] Work Phone: [facility] 09-10-2024 12:41-0500 SaO2% (BldA) [Mass fraction] 95 % Kaye Hermosillo [employer] Work Phone: [facility] 09-10-2024 12:41-0500 Systolic blood pressure 122 mm[Hg] Kaye Heromsillo [employer] Work Phone: [facility] 08-06-2024 10:12-0500 Body height 157.5 cm Los Gonzalez DO Work Phone: [facility] 08-06-2024 10:12-0500 Body mass index (BMI) [Ratio] 34.2 kg/m2 Los Gonzalez DO Work Phone: [facility] 08-06-2024 10:12-0500 Body weight 84.82 kg Los Gonzalez DO Work Phone: [facility] 04-04-2024 10:36-0400 Body height 162.56 cm [employer] Kaye Hermosillo Work Phone: [facility] 04-04-2024 10:36-0400 Body mass index (BMI) [Ratio] 31.4 kg/m2 [employer] Kaye Hermosillo Work Phone: [facility] 04-04-2024 10:36-0400 Body weight 83.09 kg [employer] Kaye Hermosillo Work Phone: [facility] 03-19-2024 08:45-0400 Diastolic blood pressure 84 mm[Hg] [employer] Kaye Hermosillo Work Phone: [facility] 03-19-2024 08:45-0400 Heart rate 67 /min [employer] Kaye Hermosillo Work Phone: [facility] 03-19-2024 08:45-0400 SaO2% (BldA) [Mass fraction] 99 % [employer] Kaye Hermosillo Work Phone: [facility] 03-19-2024 08:45-0400 Systolic blood pressure 138 mm[Hg] [employer] Kaye Hermosillo Work Phone: [facility] 03-19-2024 08:07-0400 Inhaled oxygen flow rate 3 L/min [employer] Kaye Hermosillo Work Phone: [facility] 03-19-2024 06:58-0400 Body height 162.56 cm [employer] Kaye Hermosillo Work Phone: [facility] 03-19-2024 06:58-0400 Body weight 81.64 kg [employer] Kaye Hermosillo Work Phone: [facility] 03-19-2024 06:58-0400 Respiratory rate 16 /min [employer] Kaye Hermosillo Work Phone: [facility] 02-22-2024 12:53-0400 Body weight 84.[address] [facility] 08-29-2023 09:48-0500 Body height 157.5 cm Los Gonzalez DO Work Phone: [facility] 08-29-2023 09:48-0500 Body mass index (BMI) [Ratio] 34.93 kg/m2 Los Brown DO Work Phone: [facility] 08-29-2023 09:48-0500 Body weight 86.64 kg Los Brown DO Work Phone: [facility] 07-19-2023 13:14-0500 Heart rate 75 /min Los [email or web address] [facility] 07-19-2023 13:14-0500 SaO2% (BldA) [Mass fraction] 94 % Los Brown [facility] 07-19-2023 13:13-0500 Respiratory rate 20 /min [facility] 07-19-2023 13:11-0500 Diastolic blood pressure 79 mm[Hg] [facility] 07-19-2023 13:11-0500 Mean blood pressure 92 mm[Hg] [facility] 07-19-2023 13:11-0500 Systolic blood pressure 118 mm[Hg] [facility] 07-19-2023 13:00-0500 Heart rate 84 /min [facility] Brown [facility] 07-19-2023 12:02-0500 Heart rate 63 /min [facility] Brown [facility] 07-19-2023 12:02-0500 SaO2% (BldA) [Mass fraction] 91 % Los Gonzalez [facility] 07-19-2023 12:01-0500 Diastolic blood pressure 81 mm[Hg] Los Gonzalez [facility] 07-19-2023 12:01-0500 Mean blood pressure 105 mm[Hg] Los Gonzalez [facility] 07-19-2023 12:01-0500 Systolic blood pressure 154 mm[Hg] Los Gonzalez [facility] 07-19-2023 12:01-0500 Respiratory rate 16 /min Los Gonzalez [facility] 07-19-2023 11:25-0500 Blood Pressure Location Los Gonzalez [facility] 07-19-2023 11:25-0500 Body temperature 97.52 [degF] Los Gonzalez [facility] 07-19-2023 11:25-0500 Mean blood pressure 100 mm[Hg] Los Gonzalez [facility] 07-19-2023 11:25-0500 Respiratory rate 14 /min Los Gonzalez [facility] 07-19-2023 11:20-0500 Blood Pressure Location Los Gonzalez [facility] 07-19-2023 11:20-0500 Mean blood pressure 99 mm[Hg] Los Gonzalez [facility] 07-19-2023 11:20-0500 Respiratory rate 17 /min Los Gonzalez [facility] 07-19-2023 11:10-0500 Blood Pressure Location Los Gonzalez [facility] 07-19-2023 11:10-0500 Mean blood pressure 104 mm[Hg] Los Gonzalez [facility] 07-19-2023 10:57-0500 Body temperature 97.16 [degF] Los Gonzalez [facility] 07-19-2023 06:51-0500 Mean blood pressure 105 mm[Hg] Los Gonzalez [facility] 07-19-2023 06:49-0500 Respiratory rate 20 /min Los Gonzalez [facility] 07-19-2023 06:49-0500 Body temperature 97.34 [degF] Los Gonzalez [facility] 07-19-2023 06:49-0500 Heart rate 70 /min Los Gonzalez [facility] 07-06-2023 09:46-0500 Diastolic blood pressure 84 mm[Hg] Los Gonzalez [facility] 07-06-2023 09:46-0500 Heart rate 76 /min Los Gonzalez [facility] 07-06-2023 09:46-0500 Mean blood pressure 103 mm[Hg] Los Gonzalez [facility] 07-06-2023 09:46-0500 Systolic blood pressure 140 mm[Hg] Los Gonzalez [facility] 07-06-2023 09:46-0500 Heart rate 71 /min Los Gonzalez [facility] 07-06-2023 09:46-0500 SaO2% (BldA) [Mass fraction] 97 % Los Gonzalez [facility] 07-06-2023 09:45-0500 Respiratory rate 20 /min Los Gonzalez [facility] 07-06-2023 09:45-0500 Blood Pressure Location Los Gonzalez [facility] 07-06-2023 09:45-0500 Diastolic blood pressure 84 mm[Hg] [facility] 07-06-2023 09:45-0500 Mean blood pressure 99 mm[Hg] [facility] 07-06-2023 09:45-0500 Systolic blood pressure 128 mm[Hg] [facility] 05-23-2023 12:31-0400 Heart rate 63 /min Los Gonzalez [facility] 05-23-2023 12:31-0400 SaO2% (BldA) [Mass fraction] 97 % Los Gonzalez [facility] 05-23-2023 12:31-0400 Diastolic blood pressure 74 mm[Hg] [facility] 05-23-2023 12:31-0400 Mean blood pressure 87 mm[Hg] [facility] Brown [facility] 05-23-2023 12:31-0400 Systolic blood pressure 114 mm[Hg] [facility] Brown [facility] 05-23-2023 12:31-0400 Respiratory rate 16 /min Los Gonzalez [facility] 05-23-2023 11:54-0400 Heart rate 60 /min Los Gonzalez [facility] 05-23-2023 11:54-0400 SaO2% (BldA) [Mass fraction] 99 % [facility] Brown [facility] 05-23-2023 11:53-0400 Diastolic blood pressure 75 mm[Hg] [facility] 05-23-2023 11:53-0400 Mean blood pressure 94 mm[Hg] [facility] 05-23-2023 11:53-0400 Systolic blood pressure 134 mm[Hg] [facility] 05-23-2023 11:45-0400 Body temperature 97.7 [degF] [facility] 05-23-2023 11:45-0400 Diastolic blood pressure 75 mm[Hg] Los Gonzalez [facility] 05-23-2023 11:45-0400 Heart rate 59 /min [facility] [email or web address] [facility] 05-23-2023 11:45-0400 Respiratory rate 15 /min [facility] [email or web address] [facility] 05-23-2023 11:45-0400 SaO2% (BldA) [Mass fraction] 97 % Los Gonzalez [facility] 05-23-2023 11:45-0400 Systolic blood pressure 120 mm[Hg] Los Gonzalez [facility] 05-23-2023 11:35-0400 Respiratory rate 15 /min Los Gonzalez [facility] 05-23-2023 11:30-0400 Respiratory rate 20 /min Los Brown [facility] 05-23-2023 11:30-0400 Respiratory rate 27 /min Los Gonzalez [facility] 05-23-2023 11:18-0400 Body temperature 96.98 [degF] [facility] [email or web address] [facility] 05-23-2023 11:18-0400 Respiratory rate 22 /min [facility] [email or web address] [facility] 05-23-2023 09:12-0400 Blood Pressure Location Los Gonzalez [facility] 05-23-2023 09:12-0400 Mean blood pressure 91 mm[Hg] Los Gonzalez [facility] 05-23-2023 09:10-0400 Body temperature 97.52 [degF] Los Gonzalez [facility] 05-23-2023 09:10-0400 Heart rate 66 /min Los Gonzalez [facility] 05-23-2023 09:09-0400 Respiratory rate 16 /min Los Gonzalez [facility] 05-23-2023 09:09-0400 Blood Pressure Location Los Gonzalez [facility] 09-28-2022 16:14-0500 Heart rate 87 /min Los Gonzalez [facility] 09-28-2022 16:14-0500 SaO2% (BldA) [Mass fraction] 92 % Los Gonzalez [facility] 09-28-2022 16:13-0500 Body temperature 97.52 [degF] Los Gonzalez [facility] 09-28-2022 16:12-0500 Diastolic blood pressure 68 mm[Hg] Los Gonzalez [facility] 09-28-2022 16:12-0500 Mean blood pressure 83 mm[Hg] Los Gonzalez [facility] 09-28-2022 16:12-0500 Systolic blood pressure 112 mm[Hg] Los Gonzalez [facility] 09-28-2022 16:11-0500 Respiratory rate 16 /min Los Gonzalez [facility] 09-28-2022 14:04-0500 Heart rate 85 /min Los Gonzalez [facility] 09-28-2022 14:04-0500 SaO2% (BldA) [Mass fraction] 99 % Los Gonzalez [facility] 09-28-2022 14:03-0500 Respiratory rate 18 /min Los Gonzalez [facility] 09-28-2022 14:03-0500 Body temperature 97.52 [degF] Los Gonzalez [facility] 09-28-2022 14:01-0500 Diastolic blood pressure 71 mm[Hg] Los Gonzalez [facility] 09-28-2022 14:01-0500 Mean blood pressure 84 mm[Hg] Los Gonzalez [facility] 09-28-2022 14:01-0500 Systolic blood pressure 111 mm[Hg] Los Gonzalez [facility] 09-28-2022 13:50-0500 Body temperature 97.52 [degF] Los Gonzalez [facility] 09-28-2022 13:50-0500 Diastolic blood pressure 73 mm[Hg] Los Gonzalez [facility] 09-28-2022 13:50-0500 Heart rate 85 /min Los Gonzalez [facility] 09-28-2022 13:50-0500 Mean blood pressure 86 mm[Hg] Los Gonzalez [facility] 09-28-2022 13:50-0500 Respiratory rate 29 /min Los Gonzalez [facility] 09-28-2022 13:50-0500 SaO2% (BldA) [Mass fraction] 95 % Los Gonzalez [facility] 09-28-2022 13:50-0500 Systolic blood pressure 113 mm[Hg] Los Brown [facility] 09-28-2022 13:45-0500 Mean blood pressure 86 mm[Hg] Los Brown [facility] 09-28-2022 13:45-0500 Respiratory rate 16 /min Los Brown [facility] 09-28-2022 13:30-0500 Mean blood pressure 94 mm[Hg] Lso Brown [facility] 09-28-2022 13:30-0500 Respiratory rate 20 /min [facility] Brown [facility] 09-28-2022 13:15-0500 Body temperature 96.8 [degF] [facility] Brown [facility] 09-28-2022 13:15-0500 FIO2 100 % Los Brown [facility] 09-28-2022 13:10-0500 FIO2 100 % Los Brown [facility] 09-28-2022 13:10-0500 Respiratory rate 13 /min Los Brown [facility] 09-28-2022 13:05-0500 FIO2 30 % Los Brown [facility] 09-28-2022 08:28-0500 Body temperature 97.7 [degF] Los Brown [facility] 09-28-2022 08:28-0500 Heart rate 80 /min Los [facility] 09-28-2022 08:27-0500 Mean blood pressure 108 mm[Hg] [facility] Encounters Encounter Date Encounter Type Care Provider Facility Start: 09-10-2024 End: 09-10-2024 Bamboo flowsheet Kaye Hermosillo [employer] Work Phone: [facility] Start: 09-10-2024 End: 09-10-2024 Bamboo flowsheet Kaye Hermosillo [employer] Work Phone: [facility] Start: 09-10-2024 End: 09-10-2024 Patient encounter procedure Kaye Hermosillo [employer] Work Phone: [facility] Comment on above: Medicare annual [facility] visit, initial (Primary Dx); Rheumatoid arthritis of unspecified wrist with involvement of other organs and systems (CMS/HCC); Cervical stenosis of spinal canal; Screening for lipid disorders; Screening for heart disease; Encounter for screening mammogram for malignant neoplasm of breast; Primary insomnia; Essential hypertension (CMS/HCC); Panic disorder (CMS/HCC); Mild episode of recurrent major depressive disorder (HCC) (CMS/HCC); Anxiety; Mixed hyperlipidemia (CMS/HCC); Rheumatoid arthritis, involving unspecified site, unspecified whether rheumatoid factor present (CMS/HCC); Arthritis Start: 09-10-2024 End: 09-10-2024 ambulatory KAYE HERMOSILLO Not Available Start: 08-06-2024 End: 08-06-2024 Patient encounter procedure Los Gonzalez DO Work Phone: [facility] Comment on above: History of right monique ulder replacement (Primary Dx); Pain, joint, shoulder, left Start: 08-06-2024 End: 08-06-2024 ambulatory LOS GONZALEZ Not Available Start: 08-06-2024 End: 08-06-2024 ambulatory LOS GONZALEZ Not Available Start: 04-15-2024 End: 04-15-2024 ambulatory NICK-C Kaye Hermosillo Work Phone: [facility] Work Phone: Start: 04-15-2024 End: 04-15-2024 Patient encounter procedure JAYJAY Hermosillo Work Phone: [facility] Work Phone: Start: 04-04-2024 End: 04-04-2024 ambulatory [employer] Kaye Hermosillo Work Phone: [facility] Work Phone: Start: 04-04-2024 End: 04-04-2024 Patient encounter procedure [employer] Kaye Hermosillo Work Phone: [facility] Work Phone: Start: 03-30-2024 End: 04-03-2024 Refill Kaye Hermosillo [employer] Work Phone: [facility] Comment on above: Essential hypertensi on ([facility]) Start: 03-26-2024 End: 03-26-2024 ambulatory [employer] Kaye Hermosillo Work Phone: [facility] Work Phone: Start: 03-26-2024 End: 03-26-2024 Patient encounter procedure [employer] Kaye Hermosillo Work Phone: [facility] Work Phone: Start: 03-19-2024 Non-patient / Non-visit [employer] Mary Hermosillo Work Phone: [facility] Work Phone: Start: 03-19-2024 End: 03-19-2024 Admission to same day surgery center [employer] Kaye Hermosillo Work Phone: [facility] Work Phone: Start: 03-19-2024 End: 03-19-2024 ambulatory [employer] Kaye Hermosillo Work Phone: [facility] Work Phone: Start: 03-08-2024 End: 03-08-2024 Patient encounter procedure [employer] Kaye Hermosillo Work Phone: [facility] Work Phone: Start: 03-08-2024 End: 03-08-2024 ambulatory [employer] Kaye Hermosillo Work Phone: [facility] Work Phone: Start: 03-04-2024 End: 03-04-2024 ambulatory [employer] Kaye Hermosillo Work Phone: [facility] Work Phone: Start: 03-04-2024 End: 03-04-2024 Patient encounter procedure [employer] Kaye Hermosillo Work Phone: [facility] Work Phone: Start: 02-29-2024 End: 02-29-2024 Patient encounter procedure [employer] Kaye Hermosillo Work Phone: [facility] Work Phone: Start: 02-29-2024 End: 02-29-2024 ambulatory [employer] Kaye Hermosillo Work Phone: [facility] Work Phone: Start: 02-22-2024 End: 02-22-[address] [facility] Work Phone: Start: 02-22-2024 End: 02-22-2024 Patient encounter procedure [facility] Work Phone: Start: 01-23-2024 End: 01-23-2024 ambulatory LOS GONZALEZ Not Available Start: 12-12-2023 End: 12-13-2023 ambulatory KAYE HERMOSILLO Facility[place] Start: 12-12-2023 End: 12-12-2023 Patient encounter procedure KAYE HERMOSILLO [facility] Start: 12-04-2023 End: 12-05-2023 ambulatory KAYE HERMOSILLO Facility:[facility] Start: 12-04-2023 End: 12-04-2023 Patient encounter procedure KAYE HERMOSILLO [facility] Start: 11-29-2023 End: 11-29-2023 ambulatory KAYE HERMOSILLO Not Available Start: 11-02-2023 End: 11-02-2023 ambulatory KAYE HERMOSILLO Not Available Start: 10-19-2023 End: 10-19-2023 ambulatory KAYE HERMOSILLO Not Available Start: 10-19-2023 End: 10-19-2023 ambulatory LOS Parmar LISA Not Available Start: 10-10-2023 End: 10-10-2023 ambulatory LOS Ghulam LISA Not Available Start: 09-02-2023 Refill Kaye roche [employer] Work Phone: [facility] Comment on above: Essential hypertensi on (CMS/HCC) Start: 08-29-2023 End: 08-29-2023 Patient encounter procedure Los Ghulam Lisa DO Work Phone: [facility] Comment on above: History of right monique ulder replacement (Primary Dx) Start: 07-19-2023 End: 07-19-2023 ambulatory Los Gonzalez Facility:[facility] Start: 07-19-2023 End: 07-19-2023 Admission to same day surgery center Los Ghulam Lisa [facility] Start: 07-06-2023 End: 07-07-2023 ambulatory Los Ghulam Lisa Facility:[facility] Start: 07-06-2023 End: 07-06-2023 Patient encounter procedure Los Ghulam Lisa [facility] Start: 05-23-2023 End: 05-23-2023 ambulatory Los Ghulam Lisa Facility:[facility] Start: 05-23-2023 End: 05-23-2023 Admission to same day surgery center Los Gonzalez [facility] Start: 05-15-2023 End: 05-16-2023 ambulatory Los Gonzalez Facility:[facility] Start: 03-27-2023 End: 03-27-2023 ambulatory [employer] Kaye Hermosillo Work Phone: [facility] Work Phone: Start: 03-27-2023 End: 03-27-2023 Patient encounter procedure [employer] Kaye Hermosillo Work Phone: [facility] [address] Work Phone: Start: 02-07-2023 End: 02-07-2023 ambulatory MD Phill Yates Work Phone: [facility] Work Phone: Start: 02-07-2023 End: 02-07-2023 Patient encounter procedure MD Phill Yates Work Phone: [facility] [address] Work Phone: Start: 12-07-2022 End: 12-07-2022 ambulatory MD Phill Yates Work Phone: [facility] Work Phone: Start: 12-07-2022 End: 12-07-2022 Patient encounter procedure MD Phill Yates Work Phone: [facility] [address] Work Phone: Start: 09-28-2022 End: 09-28-2022 Admission to same day surgery center Los Gonzalez [facility] Start: 09-20-2022 ambulatory Facility:1 [id number] Start: 03-04-2022 End: 03-04-2022 Patient encounter procedure DO Gregg Alanis Work Phone: [facility]XRay [address] Start: 12-06-2021 End: 12-07-2021 ambulatory KAYE HERMOSILLO Facility: Procedures Date Procedure Procedure Detail Performing Clinician Start: 08-06-2024 Radex shoulder compl ete minimum 2 views Los Gonzalez DO Work Phone: Start: 08-06-2024 Radex shoulder compl ete minimum 2 views Los Gonzalez DO Work Phone: Start: 03-26-2024 Plain X-ray of right hip [employer] Kaye Hermosillo Work Phone: Start: 03-19-2024 Injection of spinal epidural space [employer] Kaye Hermosillo Work Phone: Start: 03-08-2024 Dual energy X-ray absorptiometry [employer] Kaye Hermosillo Work Phone: Start: 02-29-2024 X-ray of cervical spine [employer] Kaye Hermosillo Work Phone: Start: 08-29-2023 Radex shoulder compl ete minimum 2 views Los Gonzalez DO Work Phone: Start: 07-19-2023 Reverse prosthetic t otal arthroplasty of shoulder Los Gonzalez Start: 05-23-2023 Magnetic resonance imaging Los Gonzalez Comment on above: MRI with sedation of right shoulder Start: 09-28-2022 Arthroplasty of shoulder Los Gonzalez Start: 03-04-2022 Plain chest X-ray DO Da vid Pocos Work Phone: Start: 12-06-2021 Mammography Los Gail mendoza DO Work Phone: Arthroscopic repair of rotator cuff Los Lisa Excision of bunion Los Thomas ashford H/O: artificial joint History of right shoulder replacement Los Gonzalez Work Phone: H/O: artificial joint History of right shoulder replacement Los Gonzalez DO Work Phone: Plan of Treatment Date Care Activity Detail Author Start: 12-08-2025 Screening for malign ant neoplasm of colon [facility] Start: 09-10-2025 Medicare Annual Well ness (AWV) Medicare Annual Wellness (AWV) [facility] Start: 08-07-2025 End: 08-07-2025 Patient encounter procedure 08/07/2025 10:30 AM EST Office Visit [facility] [address] [place] [address] Los Gonzalez DO [address] [place] [address] [facility] Start: 09-10-2024 End: 09-10-2025 Comprehensive metabolic 2000 panel - Serum or Plasma Comprehensive metabolic panel Lab Routine Screening for lipid disorders Screening for heart disease Medicare annual wellness visit, initial Essential hypertension (CMS/HCC) Mixed hyperlipidemia (CMS/HCC) Expected: 09/10/2024 (Approximate), Expires: 09/10/2025 [facility] Work Phone: Comment on above: Expected: 09/10/2024 (Approximate), Expires: 09/10/2025 Start: 09-10-2024 End: 09-10-2025 DBT Breast - bilateral screening Bilateral screening mammogram with tomosynthesis Imaging Routine Encounter for screening mammogram for malignant neoplasm of breast Expected: 09/10/2024, Expires: 09/10/2025 [facility] Comment on above: Expected: 09/10/2024 , Expires: 09/10/2025 Start: 09-10-2024 End: 09-10-2025 Lipid 1996 panel - Serum or Plasma Lipid panel Lab Routine Screening for lipid disorders Screening for heart disease Medicare annual wellness visit, initial Essential hypertension (CMS/HCC) Mixed hyperlipidemia (CMS/HCC) Expected: 09/10/2024 (Approximate), Expires: 09/10/2025 [facility] Comment on above: Expected: 09/10/2024 (Approximate), Expires: 09/10/2025 Start: 09-10-2024 End: 09-10-2024 Patient encounter procedure 09/10/2024 12:40 PM EST Office Visit [facility] [address] [place] [id number] Kaye Hermosillo NP [address] [place] [address] Arrived [facility] Comment on above: Arrived Start: 07-25-2024 End: 07-25-2024 Patient encounter procedure 07/25/2024 3:00 PM EST Office Visit [facility] [address] [place] [id number] Los Gonzalez DO [address] [place] [address] [facility] Start: 04-19-2024 End: 04-19-2024 Patient encounter procedure 04/19/2024 8:30 AM EDT Office Visit [facility] [address] [place] [phone] Kaye Hermosillo [employer] [address] [place] [address] [facility] Start: 03-31-2024 Influenza vaccination Influenza Vacc ine (#1) [facility] Start: 03-19-2024 [facility] Start: 02-22-2024 Patient referral [facility] Work Phone: Start: 10-10-2023 End: 10-10-2023 Patient encounter procedure 10/10/2023 9:00 AM EDT Office Visit [facility] [address] [place] [id number] Los Gonzalez DO [address] [place] [address] [facility] Start: 03-31-2023 Influenza vaccination Influenza Vacc ine (#1) [facility] Start: 03-27-2023 [facility] Start: 02-07-2023 Hepatitis B core antibody measurement [facility] Start: 02-07-2023 [facility] Start: 12-06-2022 Screening for malign ant neoplasm of breast Mammogram [facility] Start: 1993 Screening for malign ant neoplasm of cervix [facility] Start: 1984 Screening for malign ant neoplasm of cervix Pap Smear [facility] Start: 1963 Screening for malign ant neoplasm of colon [facility] 24 hour urine measurement [facility] DXA Skeletal system.axial Views for bone density [facility] Electrophoresis: [id number] [facility] Electrophoresis: [id number] [facility] Electrophoresis: beta-globulin [facility] Immunofixation for Urine Fir [facility] Interferon gamma assay [facility] Measurement of monoclonal protein concentration [facility] Mycobacterium tuberculosis stimulated gamma interferon [Interpretation] in Blood Qualitative [facility] Mycobacterium tuberculosis stimulated gamma interferon release by CD4+ and CD8+ T-cells [Units/volume] corrected for background in Blood [facility] Mycobacterium tuberculosis tuberculin stimulated gamma interferon [Presence] in Blood [facility] Patient Education Know your Meds [place] Non Diagnostic Block [facility] Work Phone: Patient referral [facility] Work Phone: Protein [Mass/volume ] in Urine [facility] XR Cervical spine Vi ews W flexion and W extension [facility] Immunizations Immunization Date Immunization Notes Care Provider Mahsa ibanez 06-21-2021 Moderna SARS-CoV-2 Booster Vaccination Los Gonzalez DO Work Phone: [facility] Payers Date Payer Category Payer Medicare MEDICARE [id number] 2024 Medicare (Managed Care) [facility] MEDICARE ADVANTAGE [id number] 2024 Medicare [id number] 2024 Self-pay 2023 Unknown [id number] 1994 Government (not [facility] or Medicaid) [id number] 1994 Unknown [facility] [id number] 1994-Present [address] [place] [address] [id number] 1963 Unknown [id number] 2.16.840.1.492165.3.579.2 .593 1963 Unknown [id number] 2.16.840.1.430683.3.579.2 .356 1963 Unknown [id number] 2.16.840.1.258596.3.579.2 .727 1963 Unknown [id number] 2.16.840.1.834798.3.579.2 .727 1963 Unknown [id number] 2.16.840.1.896559.3.579.2 .727 1963 Unknown [id number] 2.16.840.1.989227.3.579.2 .72 1963 Unknown [id number] 2.16.840.1.773550.3.579.2 .1963 Unknown [id number] 2.16.840.1.381159.3.579.2 .1963 Unknown [id number] 2.16.840.1.085891.3.579.2 .1258 1963 Unknown [id number] 2.16.840.1.798284.3.579.2 .1258 1963 Unknown [id number] 2.16.840.1.493985.3.579.2 .1258 1963 Unknown [id number] 2.16840.1.938740.3.579.2 .1258 1963 Unknown [id number] 2.840.1.245556.3.579.2 .1258 1963 Unknown [id number] 2.16840.1.342848.3.579.2 .1258 1963 Unknown [id number] 2.16840.1.374302.3.579.2 .1258 1963 Unknown [id number] 2.16840.1.510981.3.579.2 .1258 1963 Unknown [id number] 2.840.1.358593.3.579.2 .1258 1963 Unknown [id number] 2.16840.1.165858.3.579.2 .1258 1963 Unknown [id number] 2.16840.1.744396.3.579.2 .1258 1963 Unknown [id number] 2.16840.1.643414.3.579.2 .1258 1959 Unknown [id number] 1959 Unknown [id number] Unknown [id number] 2.840.1.466396.3.579.2 .531 Unknown [id number] 2.0.1.101672.3.579.2 .531 Unknown [id number] 2.16.840.1.563797.3.579.2 .531 Unknown [id number] 2.16.840.1.471125.3.579.2 .531 Social History Date Type Detail Facility Tobacco smoking stat us MEIS Unknown if ever smoked [facility] Work Phone: Start: 1965 Sex Assigned At Female F [facility] Tobacco smoking status No Smokin g Status Entered [facility] Start: 06-28-2023 End: 09-10-2024 Sex Assigned At [facility] Start: 12-27-2022 End: 03-19-2024 Tobacco smoking status MEIS Never smoked tobacco [facility] Start: 12-27-2022 Tobacco use and exposure Smokeless tobacco non-user [facility] Start: 08-29-2023 End: 09-10-2024 Alcohol intake Ex-drinker (finding) [facility] Start: 06-28-2023 End: 09-10-2024 History of Social function [facility] Within the last year , have you been afraid of your partner or ex-partner? No [facility] Are you now , , , , never or living with a partner? [facility] How often to you hav e a drink containing alcohol? Never [facility] How many standard drinks containing alcohol do you have on a typical day? Patient does not drink [facility] Do you feel stress - tense, restless, nervous, or anxious, or unable to sleep at night because your mind is troubled all the time - these days [OSQ] Very much [facility] (I/We) worried wheth er (my/our) food would run out before (I/we) got money to buy more. Never true [facility] Start: 06-06-2023 Alcohol Comment Caffeine intak e: 1-2 cups per day pop [facility] Start: 1965 Sex Assigned At Not on file [facility] Medical Equipment Procedure Code Equipment Code Equipment Origin al Text Equipment Identifier Dates SHOULDER TOTAL ARTHROPLASTY Los Gonzalez DO 09/28/22 Unknown Shoulder L FDA Start: 09-28-2022 SHOULDER TOTAL ARTHROPLASTY Brown DO, Los A 09/28/22 Unknown Shoulder L FDA Start: 09-28-2022 SHOULDER TOTAL ARTHROPLASTY Brown DO, Los A 09/28/22 Unknown Shoulder L FDA Start: 09-28-2022 SHOULDER TOTAL ARTHROPLASTY Brown DO, Los A 09/28/22 Unknown Shoulder L FDA Start: 09-28-2022 SHOULDER TOTAL ARTHROPLASTY Brown DO, Los A 09/28/22 Unknown Shoulder L FDA Start: 09-28-2022 SHOULDER TOTAL ARTHROPLASTY Brown DO, Los A 09/28/22 Unknown Shoulder L FDA Start: 09-28-2022 SHOULDER TOTAL ARTHROPLASTY Brown DO, Los A 09/28/22 Unknown Shoulder L FDA Start: 09-28-2022 SHOULDER TOTAL ARTHROPLASTY Brown DO, Los A 09/28/22 Unknown Shoulder L FDA Start: 09-28-2022 SHOULDER TOTAL ARTHROPLASTY Brown DO, Los A 09/28/22 Unknown Shoulder L FDA Start: 09-28-2022 SHOULDER TOTAL ARTHROPLASTY Brown DO, Los A 09/28/22 Unknown Shoulder L FDA Start: 09-28-2022 SHOULDER TOTAL ARTHROPLASTY Brown DO, Los A 09/28/22 Unknown Shoulder L FDA Start: 09-28-2022 SHOULDER TOTAL ARTHROPLASTY Brown DO, Los A 09/28/22 Unknown Shoulder L FDA Start: 09-28-2022 SHOULDER TOTAL ARTHROPLASTY Brown DO, Los A 09/28/22 Unknown Shoulder L FDA Start: 09-28-2022 SHOULDER TOTAL ARTHROPLASTY Brown DO, Los A 09/28/22 Unknown Shoulder L FDA Start: 09-28-2022 SHOULDER TOTAL ARTHROPLASTY Brown DO, Los A 09/28/22 Unknown Shoulder L FDA Start: 09-28-2022 SHOULDER TOTAL ARTHROPLASTY Brown DO, Los A 09/28/22 Unknown Shoulder L FDA Start: 09-28-2022 SHOULDER TOTAL ARTHROPLASTY Brown DO, Los A 09/28/22 Unknown Shoulder L FDA Start: 09-28-2022 SHOULDER TOTAL ARTHROPLASTY Brown DO, Los A 09/28/22 Unknown Shoulder L FDA Start: 09-28-2022 SHOULDER TOTAL ARTHROPLASTY Brown DO, Los A 09/28/22 Unknown Shoulder L FDA Start: 09-28-2022 SHOULDER TOTAL ARTHROPLASTY Brown DO, Los A 09/28/22 Unknown Shoulder L FDA Start: 09-28-2022 SHOULDER TOTAL ARTHROPLASTY Brown DO, Los A 09/28/22 Unknown Shoulder L FDA Start: 09-28-2022 SHOULDER TOTAL ARTHROPLASTY Brown DO, Los A 09/28/22 Unknown Shoulder L FDA Start: 09-28-2022 SHOULDER TOTAL ARTHROPLASTY Brown DO, Los A 09/28/22 Unknown Shoulder L FDA Start: 09-28-2022 SHOULDER TOTAL ARTHROPLASTY Brown DO, Los A 09/28/22 Unknown Shoulder L FDA Start: 09-28-2022 SHOULDER TOTAL ARTHROPLASTY Brown DO, Los A 09/28/22 Unknown Shoulder L FDA Start: 09-28-2022 SHOULDER TOTAL ARTHROPLASTY Brown DO, Los A 09/28/22 Unknown Shoulder L FDA Start: 09-28-2022 SHOULDER TOTAL ARTHROPLASTY Brown DO, Los A 09/28/22 Unknown Shoulder L FDA Start: 09-28-2022 SHOULDER TOTAL ARTHROPLASTY Brown DO, Los A 09/28/22 Unknown Shoulder L FDA Start: 09-28-2022 SHOULDER TOTAL ARTHROPLASTY Brown DO, Los A 09/28/22 Unknown Shoulder L FDA Start: 09-28-2022 SHOULDER TOTAL ARTHROPLASTY Brown DO, Los A 09/28/22 Unknown Shoulder L FDA Start: 09-28-2022 SHOULDER TOTAL ARTHROPLASTY Brown DO, Los A 09/28/22 Unknown Shoulder L FDA Start: 09-28-2022 SHOULDER TOTAL ARTHROPLASTY Brown DO, Los A 09/28/22 Unknown Shoulder L FDA Start: 09-28-2022 SHOULDER TOTAL ARTHROPLASTY Brown DO, Los A 09/28/22 Unknown Shoulder L FDA Start: 09-28-2022 SHOULDER TOTAL ARTHROPLASTY Brown DO, Los A 09/28/22 Unknown Shoulder L FDA Start: 09-28-2022 SHOULDER TOTAL ARTHROPLASTY Brown DO, Los A 09/28/22 Unknown Shoulder L FDA Start: 09-28-2022 SHOULDER TOTAL ARTHROPLASTY Brown DO, Los A 09/28/22 Unknown Shoulder L FDA Start: 09-28-2022 SHOULDER TOTAL ARTHROPLASTY Brown DO, Los A 09/28/22 Unknown Shoulder L FDA Start: 09-28-2022 SHOULDER TOTAL ARTHROPLASTY Brown DO, Los A 09/28/22 Unknown Shoulder L FDA Start: 09-28-2022 SHOULDER TOTAL ARTHROPLASTY Brown DO, Los A 09/28/22 Unknown Shoulder L FDA Start: 09-28-2022 SHOULDER TOTAL ARTHROPLASTY Brown DO, Los A 09/28/22 Unknown Shoulder L FDA Start: 09-28-2022 SHOULDER TOTAL ARTHROPLASTY Lisa DO, Los A 07/19/23 Unknown Shoulder R FDA Start: 07-19-2023 SHOULDER TOTAL ARTHROPLASTY Brown DO, Los A 07/19/23 Unknown Shoulder R FDA Start: 07-19-2023 SHOULDER TOTAL ARTHROPLASTY Brown DO, Los A 07/19/23 Unknown Shoulder R FDA Start: 07-19-2023 SHOULDER TOTAL ARTHROPLASTY Brown DO, Los A 07/19/23 Unknown Shoulder R FDA Start: 07-19-2023 SHOULDER TOTAL ARTHROPLASTY Brown DO, Los A 07/19/23 Unknown Shoulder R FDA Start: 07-19-2023 SHOULDER TOTAL ARTHROPLASTY Brown DO, Los A 07/19/23 Unknown Shoulder R FDA Start: 07-19-2023 SHOULDER TOTAL ARTHROPLASTY Lisa DO, Los A 07/19/23 Unknown Shoulder R FDA Start: 07-19-2023 SHOULDER TOTAL ARTHROPLASTY Lisa DO, Los A 07/19/23 Unknown Shoulder R FDA Start: 07-19-2023 SHOULDER TOTAL ARTHROPLASTY Brown DO, Los A 09/28/22 Unknown Shoulder L FDA Start: 09-28-2022 SHOULDER TOTAL ARTHROPLASTY Brown DO, Los A 09/28/22 Unknown Shoulder L FDA Start: 09-28-2022 SHOULDER TOTAL ARTHROPLASTY Brown DO, Los A 09/28/22 Unknown Shoulder L FDA Start: 09-28-2022 SHOULDER TOTAL ARTHROPLASTY Lisa DO, Los A 09/28/22 Unknown Shoulder L FDA Start: 09-28-2022 SHOULDER TOTAL ARTHROPLASTY Lisa DO, Los A 09/28/22 Unknown Shoulder L FDA Start: 09-28-2022 SHOULDER TOTAL ARTHROPLASTY Brown DO, Los A 09/28/22 Unknown Shoulder L FDA Start: 09-28-2022 SHOULDER TOTAL ARTHROPLASTY Lisa DO, Los A 09/28/22 Unknown Shoulder L FDA Start: 09-28-2022 SHOULDER TOTAL ARTHROPLASTY Brown DO, Los A 09/28/22 Unknown Shoulder L FDA Start: 09-28-2022 SHOULDER TOTAL ARTHROPLASTY Brown DO, Los A 09/28/22 Unknown Shoulder L FDA Start: 09-28-2022 SHOULDER TOTAL ARTHROPLASTY Brown DO, Los A 09/28/22 Unknown Shoulder L FDA Start: 09-28-2022 SHOULDER TOTAL ARTHROPLASTY Brown DO, Los A 07/19/23 Unknown Shoulder R FDA Start: 07-19-2023 SHOULDER TOTAL ARTHROPLASTY Brown DO, Los A 07/19/23 Unknown Shoulder R FDA Start: 07-19-2023 SHOULDER TOTAL ARTHROPLASTY Brown DO, Los A 07/19/23 Unknown Shoulder R FDA Start: 07-19-2023 SHOULDER TOTAL ARTHROPLASTY Brown DO, Los A 07/19/23 Unknown Shoulder R FDA Start: 07-19-2023 SHOULDER TOTAL ARTHROPLASTY Brown DO, Los A 07/19/23 Unknown Shoulder R FDA Start: 07-19-2023 SHOULDER TOTAL ARTHROPLASTY Brown DO, Los A 07/19/23 Unknown Shoulder R FDA Start: 07-19-2023 SHOULDER TOTAL ARTHROPLASTY Brown DO, Los A 07/19/23 Unknown Shoulder R FDA Start: 07-19-2023 SHOULDER TOTAL ARTHROPLASTY Brown DO, Los A 07/19/23 Unknown Shoulder R FDA Start: 07-19-2023 SHOULDER TOTAL ARTHROPLASTY Brown DO, Los A 09/28/22 Unknown Shoulder L FDA Start: 09-28-2022 SHOULDER TOTAL ARTHROPLASTY Brown DO, Los A 09/28/22 Unknown Shoulder L FDA Start: 09-28-2022 SHOULDER TOTAL ARTHROPLASTY Brown DO, Los A 09/28/22 Unknown Shoulder L FDA Start: 09-28-2022 SHOULDER TOTAL ARTHROPLASTY Brown DO, Los A 09/28/22 Unknown Shoulder L FDA Start: 09-28-2022 SHOULDER TOTAL ARTHROPLASTY Brown DO, Los A 09/28/22 Unknown Shoulder L FDA Start: 09-28-2022 SHOULDER TOTAL ARTHROPLASTY Brown DO, Los A 09/28/22 Unknown Shoulder L FDA Start: 09-28-2022 SHOULDER TOTAL ARTHROPLASTY Brown DO, Los A 09/28/22 Unknown Shoulder L FDA Start: 09-28-2022 SHOULDER TOTAL ARTHROPLASTY Brown DO, Los A 09/28/22 Unknown Shoulder L FDA Start: 09-28-2022 SHOULDER TOTAL ARTHROPLASTY Brown DO, Los A 09/28/22 Unknown Shoulder L FDA Start: 09-28-2022 SHOULDER TOTAL ARTHROPLASTY Brown DO, Los A 09/28/22 Unknown Shoulder L FDA Start: 09-28-2022 SHOULDER TOTAL ARTHROPLASTY Brown DO, Los A 07/19/23 Unknown Shoulder R FDA Start: 07-19-2023 SHOULDER TOTAL ARTHROPLASTY Brown DO, Los A 07/19/23 Unknown Shoulder R FDA Start: 07-19-2023 SHOULDER TOTAL ARTHROPLASTY Los Gonzalez DO 07/19/23 Unknown Shoulder R FDA Start: 07-19-2023 SHOULDER TOTAL ARTHROPLASTY Los Gonzalez DO 07/19/23 Unknown Shoulder R FDA Start: 07-19-2023 SHOULDER TOTAL ARTHROPLASTY Los Gonzalez DO 07/19/23 Unknown Shoulder R FDA Start: 07-19-2023 SHOULDER TOTAL ARTHROPLASTY Los Gonzalez DO 07/19/23 Unknown Shoulder R FDA Start: 07-19-2023 SHOULDER TOTAL ARTHROPLASTY Los Gonzalez DO 07/19/23 Unknown Shoulder R FDA Start: 07-19-2023 SHOULDER TOTAL ARTHROPLASTY Los Gonzalez DO 07/19/23 Unknown Shoulder R FDA Start: 07-19-2023 Goals Date Patient Goal Desired Activity /State Personal health goal Functional Status Date Assessment Result Facility 07-06-2023 Functional Status No [facility] Clinical Notes 12-06-2021 to 09-10-2024 Kaye Hermosillo NP - 09/10/2024 12:40 PM Gregory Gonzalez - 08/06/2024 10:30 AM ESTBeth Lara - 08/29/2023 9:45 AM EST Note Date & Type Note Facility 09-10-2024 History of Presen t illness Narrative Images from the original note were not included. Ernst Vega is a 59 y.o. female presents with chief complaint of Immunizations (Declines at this time), Med Refill (Amlodipine, prozac 10 mg and 20 mg), and Breast Cancer Screening (Would like a referral for mammogram [facility]) HPI: History of Present Illness The patient is a 59-year-old female who comes in today for a follow-up visit. She reports experiencing difficulty in initiating and maintaining sleep. She has been prescribed tizanidine and tramadol by her corporate wellness coordinator, Dr. Yates, but has discontinued tramadol due to side effects. She also avoids tizanidine unless absolutely necessary due to its side effects of dry mouth and hallucinations. She describes experiencing vivid dreams, often of a distressing nature. She has been on a leave of absence from work due to shoulder issues, which initially required short-term disability but have since transitioned to long-term disability. She has been diagnosed with spinal stenosis and receives injections for this condition. She is currently not working and is receiving disability benefits for her spinal stenosis and osteoarthritis. She reports that her shoulder function remains compromised. She has not undergone any recent laboratory tests and is requesting them to be conducted today. She has not had a mammogram due to mobility issues. She has no history of anemia. She does not have a living will but signs consent forms prior to any surgical procedures. She does not consume alcohol or use tobacco. She is currently on Medicare. She is currently on Prozac 30 mg and requires a refill. She reports that her symptoms are well-managed on this medication. She does not endorse any suicidal ideation. She reports a lack of interest or pleasure in activities over the past few days but does not feel down, depressed, or hopeless. She reports that these feelings have not interfered with her ability to work, manage tasks, or interact with others. She is also on amlodipine 5 mg daily and requires a refill. She does not require a refill of her metoprolol or atorvastatin. Supplemental Information She has been advised to take Keflex prior to dental visits due to her shoulder replacement. SOCIAL HISTORY She does not drink alcohol. She does not smoke. FAMILY HISTORY Her brother had a massive heart attack. MEDICATIONS Current: tizanidine, Prozac, amlodipine, metoprolol, atorvastatin, Keflex MEDICATIONS: Current Outpatient Medications Medication Instructions amLODIPine (NORVASC) 5 mg, Oral, Daily ASPIRIN 81 PO Take by mouth. atorvastatin (LIPITOR) 40 mg, Oral, Every morning cephalexin (Keflex) 500 MG capsule Take 4 pills 30-60 mins before dental appointment with food FLUoxetine (PROZAC) 10 mg, Oral, Daily FLUoxetine (PROZAC) 20 mg, Oral, Daily LORazepam (ATIVAN) 0.5 mg, Oral, Once, Take 30 minutes before MRI metoprolol succinate XL (Toprol-XL) 25 MG 24 hr tablet TAKE 1 TABLET BY MOUTH ONCE A DAY *DO NOT CRUSH OR CHEW* tiZANidine (ZANAFLEX) 4 mg, Nightly traMADol (Ultram) 50 MG tablet ALLERGIES: Allergies Allergen Reactions Codeine GI intolerance Iodinated Contrast Media Review of Systems Medical, Surgical, Family, and Social History reviewed. General: Denies fever, chills, fatigue, MCKENZIE or weight loss/gain CV: Denies CP, palpitations or swelling in legs Resp: denies cough, SOB or wheezing GI: Denies abd pain/n/v/c/d Skin: Denies rash Neuro: Denies LH or dizziness OBJECTIVE: Visit Vitals BP 122/78 (BP Location: Right arm, Patient Position: Sitting, BP Cuff Size: Adult) Pulse 77 Temp 97.9 F (Temporal) Ht 5' 2 Wt 186 lb 9.6 oz LMP (LMP Unknown) SpO2 95% BMI 34.13 kg/m OB Status Postmenopausal Smoking Status Never BSA 1.92 m BP Readings from Last 3 Encounters: 09/10/24 122/78 10/19/23 122/70 05/17/23 100/78 Wt Readings from Last 3 Encounters: 09/10/24 186 lb 9.6 oz 08/06/24 187 lb 01/23/24 186 lb Physical Exam Physical Exam General: alert & oriented, NAD Head: NC/AT Oral Cavity: MMM Skin: warm, dry Heart: RRR, No m/r/g, S1S2 nml Lungs: CTA b/l Abdomen: soft, ND/NT, BS wnl Musculoskeletal: normal gait Extremities: no clubbing, cyanosis or edema Neurological: nonfocal Psych: mood/affect full range ' Lungs were auscultated. Heart was examined. Vital Signs Blood pressure reading is 122/78. Results Medicare Wellness Over the past 2 weeks, how often have you been bothered by any of the following problems? Little interest or pleasure in doing things: Several days Feeling down, depressed, or hopeless: Not at all Patient Health Questionnaire-2 Score: 1 Curtis Fall Risk History of Falling, Immediate or Within 3 Months: No Secondary Diagnosis: No Ambulatory Aid: Walks without aid/bedrest/nurse assist Intravenous Therapy/Heparin Lock: No Gait/Transferring: Normal/bedrest/immobile Mental Status: Oriented to own ability Curtis Fall Risk Score: 0 Health Risk Assessment Form Do you need help eating, bathing, using the toilet, dressing, or getting around your home?: No Can you prepare your own meals?: Yes Can you do your own housework without help?: Yes Can you shop for groceries or clothes without help?: Yes Do you exercise for about 20 minutes 3 or more days a week?: No How confident are you that you can control and manage most of your health problems?: Very confident Can you mange your money, credit cards and accounts, pay bills and taxes?: Yes Cognitive Screening Three Word Registration: Apple, Watch, Lucy Clock Drawing: Normal Clock - 2 Three Word Recall: All 3 words correct - 3 Total Score (0-5 Points): 5 Pain Assessment Pain Score: 7 Advance Care Planning Do you have a living will?: No Do you have a medical power of corporate associate attorney?: No ASSESSMENT AND PLAN: Assessment & Plan 1. Insomnia. She reports difficulty falling and staying asleep, with side effects from tizanidine including dry mouth and hallucinations. 2. Spinal Stenosis. She is receiving shots in her back for spinal stenosis and is currently on disability due to this condition. 3. Osteoarthritis. She is on disability for osteoarthritis and reports that her shoulders still do not function fully. 4. Hypertension. Her hypertension is well controlled with a blood pressure reading of 122/78. 5. Depression. She is currently on Prozac 30 mg and reports no thoughts of self-harm. A prescription refill for Prozac 30 mg has been provided and sent to [facility] in [place]. 6. Health Maintenance. A referral for a mammogram at [place] has been initiated. Orders for a comprehensive metabolic panel (CMP) and lipid profile have been issued, requiring a 12-hour fasting period. She can consume black coffee and water during this period. 7. Medication Management. A prescription refill for amlodipine 5 mg daily has been provided and sent to [facility] in [place]. Assessment/Plan Diagnoses and all orders for this visit: Medicare annual wellness visit, initial - Comprehensive metabolic panel; Future - Lipid panel; Future Rheumatoid arthritis of unspecified wrist with involvement of other organs and systems (CMS/HCC) Cervical stenosis of spinal canal Screening for lipid disorders - Comprehensive metabolic panel; Future - Lipid panel; Future Screening for heart disease - Comprehensive metabolic panel; Future - Lipid panel; Future Encounter for screening mammogram for malignant neoplasm of breast - Bilateral screening mammogram with tomosynthesis; Future Primary insomnia Essential hypertension (CMS/HCC) - Comprehensive metabolic panel; Future - Lipid panel; Future - amLODIPine (Norvasc) 5 MG tablet; Take 1 tablet (5 mg) by mouth Daily Panic disorder (CMS/HCC) - FLUoxetine (PROzac) 10 MG capsule; Take 1 capsule (10 mg) by mouth Daily - FLUoxetine (PROzac) 20 MG capsule; Take 1 capsule (20 mg) by mouth Daily Mild episode of recurrent major depressive disorder (HCC) (CMS/HCC) - FLUoxetine (PROzac) 10 MG capsule; Take 1 capsule (10 mg) by mouth Daily - FLUoxetine (PROzac) 20 MG capsule; Take 1 capsule (20 mg) by mouth Daily Anxiety Mixed hyperlipidemia (CMS/HCC) - Comprehensive metabolic panel; Future - Lipid panel; Future Rheumatoid arthritis, involving unspecified site, unspecified whether rheumatoid factor present (CMS/HCC) Arthritis Health Maintenance Due Topic Date Due Cervical Cancer Screening Never done Mammogram 12/06/2022 Influenza Vaccine (1) Never done documented in this encounter [facility] 08-06-2024 History of Presen t illness Narrative Images from the original note were not included. @[email or web address]@ [facility] Mary is a 58 y.o. female who presents for Follow-up of the Right Shoulder (R Rev TSA 07/19/23) and Follow-up of the Left Shoulder (L Rev TSA 09/28/22) HPI: History of Present Illness The patient is a 58-year-old female here today to follow up on both shoulders. She has a history of a right reverse total shoulder arthroplasty on 07/27/2023 and a left reverse total shoulder arthroplasty on 09/28/2022. She reports an improvement in her shoulder function since the last visit, although she experiences occasional sensitivity, more pronounced in the left shoulder than the right. As a right-side sleeper, she notes discomfort in her right shoulder upon waking after a deep sleep on that side. She has a scheduled dental appointment and remains on leave from work due to her medical conditions. She also mentions a decrease in hand strength, which she attributes to worsening arthritis. Supplemental Information She receives injections from Dr. Trinidad for back pain management. She also consults with Dr. Betts, a neurosurgeon, for her lower back issues. Despite a recommendation for surgery, she opted for injections instead, which have provided relief. However, she has been unable to receive additional injections due to her brother's current health (cardiac) issues. FAMILY HISTORY Her brother had a massive heart attack and is dealing with complications from a leaky valve. SUBJECTIVE: MEDICATIONS: Current Outpatient Medications Medication Instructions amLODIPine (NORVASC) 5 mg, Daily ASPIRIN 81 PO Take by mouth. atorvastatin (LIPITOR) 40 mg, Oral, Every morning cephalexin (Keflex) 500 MG capsule Take 4 pills 30-60 mins before dental appointment with food FLUoxetine (PROZAC) 20 mg, Oral, Daily FLUoxetine (PROZAC) 10 mg, Oral, Daily LORazepam (ATIVAN) 0.5 mg, Oral, Once, Take 30 minutes before MRI metoprolol succinate XL (Toprol-XL) 25 MG 24 hr tablet TAKE 1 TABLET BY MOUTH ONCE A DAY *DO NOT CRUSH OR CHEW* tiZANidine (ZANAFLEX) 4 mg, Nightly traMADol (Ultram) 50 MG tablet ALLERGIES: Allergies Allergen Reactions Codeine GI intolerance Iodinated Contrast Media SURGICAL HISTORY: Past Surgical History: Procedure Laterality Date BUNIONECTOMY Right 1999 REVERSE TOTAL SHOULDER ARTHROPLASTY Left 09/28/2022 JAB SHOULDER ARTHROSCOPY Left 03/31/2022 shoulder scope - DAP TOTAL SHOULDER ARTHROPLASTY Right 07/19/2023 R Rev TSA - JAB FAMILY HISTORY: Family History Problem Relation Name Age of Onset Kidney failure Mother Hypertension Mother Heart attack Mother Stroke Mother Other (sepsis) Mother Skin cancer Mother Hypertension Father David Skin cancer Father David Cancer Father David Heart disease Other Spouse Stroke Other Spouse Cancer Other Spouse SOCIAL HISTORY: Social History Tobacco Use Smoking status: Never Smokeless tobacco: Never Vaping Use Vaping status: Never Used Substance Use Topics Alcohol use: Not Currently Comment: Caffeine intake: 1-2 cups per day pop Drug use: Never Depression: Not at risk (03/21/2023) PHQ-2 PHQ-2 Score: 0 REVIEW OF SYMPTOMS: Review of Systems The review of systems, history and current medications list are all reviewed today. OBJECTIVE: Visit Vitals Ht 5' 2 Wt 187 lb BMI 34.20 kg/m OB Status Unknown Smoking Status Never BSA 1.93 m Physical Exam Alert and oriented, no acute distress. Mood and affect are appropriate. .jbgamb Both shoulders can actively abduct to about 90 degrees. The left shoulder can be passively elevated to 150 degrees and abducted to 90 degrees. The right shoulder can be elevated to 160 degrees and abduction is also to 90 degrees. Both shoulders show improved strength with forward flexion and ER. Incisions benign. No swelling or erythema. No instability. IR upper buttocks with both shoulders. Ortho Exam Results Two views, AP/axillary bilateral shoulder(s) taken today and saved to the permanent medical record are reviewed. Prosthesis is unchanged in position and alignment. No signs of prosthetic wear or loosening. No periprosthetic fractures. ASSESSMENT AND PLAN: I reviewed the history, physical exam, diagnostic studies, and diagnosis with the patient. Assessment & Plan 1. Post-operative status following bilateral reverse total shoulder arthroplasties. She has demonstrated improvement in shoulder function since the last visit. She is advised to continue using her shoulders in daily activities to further strengthen the muscles. A prescription for prophylactic antibiotics will be provided for her upcoming dental appointment. Follow-up The patient will follow up in 1 year with xrays, or earlier if necessary. A total of 20 to 29 minutes was spent on this patient encounter which included chart review, check in, nurse triage, history taking, physical examination, diagnostic study review, patient counseling and discussion, entering information into the patient's medical record, and coordinating patient care Diagnoses and all orders for this visit: History of right shoulder replacement - XR shoulder 2+ views right - cephalexin (Keflex) 500 MG capsule; Take 4 pills 30-60 mins before dental appointment with food Pain, joint, shoulder, left - XR shoulder 2+ views left Los Gonzalez D.O. Attestation This note was created using voice recognition through [employer]. documented in this encounter [facility] 03-19-2024 Procedure note [facility] 08-29-2023 History of Presen t illness Narrative Images from the original note were not included. Ernst Vega is a 58 y.o. female presents with chief complaint of Post-op of the Right Shoulder HPI: Ernst is 6 weeks status post right reverse total shoulder arthroplasty. Date of surgery was 07/19/2023. She has both good and bad days with the shoulder. She notes stiffness and throbbing. She denies fever or chills. She has been performing her home exercises. She denies feelings of instability. SUBJECTIVE: MEDICATIONS: Current Outpatient Medications Medication Instructions amLODIPine (NORVASC) 5 mg, Oral, Daily ASPIRIN 81 PO Oral atorvastatin (LIPITOR) 40 mg, Oral, Daily CeleBREX 100 mg, Oral FLUoxetine (PROZAC) 20 mg, Oral, Daily FLUoxetine (PROZAC) 10 mg, Oral, Daily hydrOXYzine pamoate (Vistaril) 25 MG capsule TAKE 1 CAPSULE BY MOUTH ONCE EVERYDAY AT BEDTIME NEEDED FOR ANXIETY metoprolol succinate XL (TOPROL-XL) 25 mg, Oral, Daily, Do not crush or chew. ALLERGIES: Allergies Allergen Reactions Codeine GI intolerance Iodinated Contrast Media SURGICAL HISTORY: Past Surgical History: Procedure Laterality Date BUNIONECTOMY Right 1999 REVERSE TOTAL SHOULDER ARTHROPLASTY Left 09/28/2022 JAB SHOULDER ARTHROSCOPY Left 03/31/2022 shoulder scope - DAP TOTAL SHOULDER ARTHROPLASTY Right 07/19/2023 R Rev TSA - JAB FAMILY HISTORY: Family History Problem Relation Name Age of Onset Kidney failure Mother Hypertension Mother Heart attack Mother Stroke Mother Other (sepsis) Mother Skin cancer Mother Hypertension Father David Skin cancer Father David Cancer Father David Heart disease Other Spouse Stroke Other Spouse Cancer Other Spouse SOCIAL HISTORY: Social History Tobacco Use Smoking status: Never Smokeless tobacco: Never Vaping Use Vaping Use: Never used Substance Use Topics Alcohol use: Not Currently Comment: Caffeine intake: 1-2 cups per day pop Drug use: Never Depression: Not at risk (03/21/2023) PHQ-2 PHQ-2 Score: 0 REVIEW OF SYMPTOMS: The review of systems, history and current medications list are all reviewed today. OBJECTIVE: Visit Vitals Ht 5' 2 Wt 191 lb LMP (LMP Unknown) BMI 34.93 kg/m OB Status Unknown Smoking Status Never BSA 1.95 m Physical Exam RIGHT SHOULDER Incision is benign. She can actively forward elevate to 45 degrees. Active horizontal abduction is to 45 degrees. Passively I can raise the arm overhead. Passive abduction is to 90 degrees. No anterior or posterior instability. Neurovascular status to the upper extremity is unchanged. At the left shoulder she can actively forward elevate to 90 degrees. IMAGING Two views, AP/axillary, right shoulder taken today and saved to the permanent medical record are reviewed. Prosthesis is unchanged in position and alignment. No signs of prosthetic wear or loosening. No periprosthetic fractures. ASSESSMENT AND PLAN: Assessment/Plan Six weeks status post right reverse total shoulder arthroplasty. She will continue to ice the shoulder. She will begin phase III exercises today. Prescription for a home TENS unit through [employer] ([place]) was provided. Follow-up in six weeks. We will take x-rays of the right shoulder at that time. Los Gonzalez D.O. documented in this encounter [facility] 07-19-2023 Hospital Discharg e instructions Patient Education 07/19/2023 10:51:44 How to Use an Incentive Spirometer How to Use an Incentive Spirometer An incentive spirometer is a tool that measures how well you are filling your lungs with each breath. Learning to take long, deep breaths using this tool can help you keep your lungs clear and active. This may help to reverse or lessen your chance of developing breathing (pulmonary) problems, especially infection. You may be asked to use a spirometer: After a surgery. If you have a lung problem or a history of smoking. After a long period of time when you have been unable to move or be active. If the spirometer includes an indicator to show the highest number that you have reached, your health care provider or respiratory therapist will help you set a goal. Keep a log of your progress as told by your health care provider. What are the risks? Breathing too quickly may cause dizziness or cause you to pass out. Take your time so you do not get dizzy or light-headed. If you are in pain, you may need to take pain medicine before doing incentive spirometry. It is harder to take a deep breath if you are having pain. How to use your incentive spirometer 1.Sit up on the edge of your bed or on a chair. 2.Hold the incentive spirometer so that it is in an upright position. 3.Before you use the spirometer, breathe out normally. 4.Place the mouthpiece in your mouth. Make sure your lips are closed tightly around it. 5.Breathe in slowly and as deeply as you can through your mouth, causing the piston or the ball to rise toward the top of the chamber. 6.Hold your breath for 3 5 seconds, or for as long as possible. If the spirometer includes a athletic coach indicator, use this to guide you in breathing. Slow down your breathing if the indicator goes above the marked areas. 7.Remove the mouthpiece from your mouth and breathe out normally. The piston or ball will return to the bottom of the chamber. 8.Rest for a few seconds, then repeat the steps 10 or more times. Take your time and take a few normal breaths between deep breaths so that you do not get dizzy or light-headed. Do this every 1 2 hours when you are awake. 9.If the spirometer includes a goal marker to show the highest number you have reached (best effort), use this as a goal to work toward during each repetition. 10.After each set of 10 deep breaths, cough a few times. This will help to make sure that your lungs are clear. If you have an incision on your chest or abdomen from surgery, place a pillow or a rolled-up towel firmly against the incision when you cough. This can help to reduce pain while taking deep breaths and coughing. General tips When you are able to get out of bed: ?Walk around often. ?Continue to take deep breaths and cough in order to clear your lungs. Keep using the incentive spirometer until your health care provider says it is okay to stop using it. If you have been in the hospital, you may be told to keep using the spirometer at home. Contact a health care provider if: You are having difficulty using the spirometer. You have trouble using the spirometer as often as instructed. Your pain medicine is not giving enough relief for you to use the spirometer as told. You have a fever. Get help right away if: You develop shortness of breath. You develop a cough with bloody mucus from the lungs. You have fluid or blood coming from an incision site after you cough. Summary An incentive spirometer is a tool that can help you learn to take long, deep breaths to keep your lungs clear and active. You may be asked to use a spirometer after a surgery, if you have a lung problem or a history of smoking, or if you have been inactive for a long period of time. Use your incentive spirometer as instructed every 1 2 hours while you are awake. If you have an incision on your chest or abdomen, place a pillow or a rolled-up towel firmly against your incision when you cough. This will help to reduce pain. Get help right away if you have shortness of breath, you cough up bloody mucus, or blood comes from your incision when you cough. This information is not intended to replace advice given to you by your health care provider. Make sure you discuss any questions you have with your health care provider. Document Revised: 10/05/2020 Document Reviewed: 10/05/2020 [employer] Patient Education 2022 Behavio. 07/19/2023 10:51:42 Shoulder Cryocuff Patient Instructions - FT (CUSTOM) 07/19/2023 10:51:41 Post Op Patient Instructions - FT (CUSTOM) 07/19/2023 10:43:18 Jaime Gonzalez - Shoulder Replacement (Custom) [place], [place] [facility] DISCHARGE INSTRUCTIONS: SHOULDER REPLACEMENT MEDICATIONS You will be given a prescription for pain medication. This should be taken with food as needed. This may cause stomach upset, dizziness, and possible constipation. Please notify the office if you have any medication allergies to this type of medication or if any problems develop with the medication. DRESSING CHANGES Leave your bandage in place until your follow up visit. The bandage is waterproof, so you may shower it home. Any increase in pain, temperature over 101 degrees, redness, or drainage should be reported to the office prior to your first office visit. ACTIVITY You may continue to progress activity as comfortably tolerated with your opposite arm. You may begin to use your elbow, wrist, and hand as directed in physical therapy. You should only remove your sling for bathing and to perform range of motion exercises for the hand, wrist, and elbow. Do not actively move your shoulder Continue to ice the shoulder several times per day until follow up. ANESTHESIA PRECAUTIONS You should not operate a vehicle, automobile, bicycle or motorcycle, machinery, or power tools, make any important decisions, or drink alcohol for 24 hours. It may be beneficial to have a responsible adult remain with you for your first 24 hours after surgery. You may be drowsy and light-headed. DRIVING Driving is legal, however, if you are involved in an accident, you must be able to prove that you maintained full control of your vehicle. For this reason, it is advised that you do not drive until your strength returns. PROBLEMS You should notify the office for any persistent or heavy bleeding, temperature above 101, redness, swelling, or drainage from the operative site, severe pain at the operative site, or the development of persistent vomiting. Los Gonzalez DO [facility] [address], [place] [address] Reviewed: Follow Up Care 05/25/2023 09:35:21 With:Los Gonzalez Address: [address] [place], [place] [address] [address]- Business (1) When:08/01/2022 13:15:00 Comments:Appointment has already been scheduledCall for any problems.Keep scheduled appointment [facility] 07-18-2023 Note [id number] [facility] 05-23-2023 Hospital Discharg e instructions Patient Education 05/23/2023 12:05:04 Post Op Patient Instructions - FT (Custom) (CUSTOM) [facility] 05-23-2023 Evaluation + Plan note Extrac john from: Title:ANES Post-operative Note - MAC Author:Bimal Goff Jr., DO Date:05/23/23 Plan Transfer/Discharge: Transfer/Discharge Discharge when meets criteria. Extracted from: Title:ANES Pre-operative Note - Adult Author:Bimal Franks Jr., DO Date:05/23/23 Plan [place] [employer] Anesthesiologists (ASA) physical status classification: Class III. Anesthetic Preoperative Plan: Anesthesia General. [facility]03-01-2023 Hospital Discharge instructions Patient Education 09/28/2022 13:35:45 Shoulder Cryocuff Patient Instructions - FT (CUSTOM) 09/28/2022 13:35:45 Post Op Patient Instructions - FT (CUSTOM) 09/28/2022 09:16:44 Jaime Gonzalez - Shoulder Replacement (Custom) [place], [place] [facility] DISCHARGE INSTRUCTIONS: SHOULDER REPLACEMENT MEDICATIONS You will be given a prescription for pain medication. This should be taken with food as needed. This may cause stomach upset, dizziness, and possible constipation. Please notify the office if you have any medication allergies to this type of medication or if any problems develop with the medication. DRESSING CHANGES Leave your bandage in place until your follow up visit. The bandage is waterproof, so you may shower it home. Any increase in pain, temperature over 101 degrees, redness, or drainage should be reported to the office prior to your first office visit. ACTIVITY You may continue to progress activity as comfortably tolerated with your opposite arm. You may begin to use your elbow, wrist, and hand as directed in physical therapy. You should only remove your sling for bathing and to perform range of motion exercises for the hand, wrist, and elbow. Do not actively move your shoulder Continue to ice the shoulder several times per day until follow up. ANESTHESIA PRECAUTIONS You should not operate a vehicle, automobile, bicycle or motorcycle, machinery, or power tools, make any important decisions, or drink alcohol for 24 hours. It may be beneficial to have a responsible adult remain with you for your first 24 hours after surgery. You may be drowsy and light-headed. DRIVING Driving is legal, however, if you are involved in an accident, you must be able to prove that you maintained full control of your vehicle. For this reason, it is advised that you do not drive until your strength returns. PROBLEMS You should notify the office for any persistent or heavy bleeding, temperature above 101, redness, swelling, or drainage from the operative site, severe pain at the operative site, or the developmentof persistent vomiting. Los Gonzalez DO [facility] [address] [place] [address] Reviewed: Follow Up Care 08/25/2022 14:01:10 With:Los Gonzalez Address: [address] [place] [address] Business (1) When:10/11/2022 14:45:00 Comments:Appointment has already been scheduledCall for any problems.Keep scheduled appointment [facility]03-01-2023 Evaluation + Plan noteExtracted from: Title:ANES Post-operative Note - General Author: Bimal Souza Jr., DO Date:09/28/22 Plan Transfer/Discharge: Transfer/Discharge Discharge when meets criteria ( From PACU to Ambulatory Surgery Unit, and To home ). Extracted from: Title:ANES Pre-operative Note - Adult Author:Bimal Franks Jr., DO Date:09/28/22 Plan [employer] of Anesthesiologists (ASA) physical status classification: Class III. Anesthetic Preoperative Plan: Anesthesia General. Regional Interscalene block. [facility]05-09-2022 NotePROCEDURE: XR SHOULDER PARISA 2V or > HISTORY: Pain of left shoulder joint ; acute bilateral shoulder pain for 3 months; decreased range of motion COMPARISON: None. FINDINGS: BONES:Marked narrowing of the acromioclavicular joint with prominent undersurface osteophytes bilaterally. High riding humeral head bilaterally, left greater than right, with small degenerative osteophytes along the inferior margin of the articular surface. Unremarkable glenoid bilaterally. SOFT TISSUES:No visible soft tissue swelling. EFFUSION:None visible. OTHER: Negative. IMPRESSION: 1. Prominent degenerative changes of the acromioclavicular joints which would predispose to rotator cuff injury. 2. Mild degenerative changes humeral heads, with bilateral high riding humeral heads which can be seen with superior rotator cuff tear and retraction. Consider MRI of the shoulders for further evaluation. Electronically authenticated by: JOURDAN YAO Date: 2021-12-06 14:53[facility] Future Appointments Appointment Date:07/19/2023 09:30:00 AM Scheduled Provider: Location:[facility] information [facility] Work Phone: Evaluation note* Diagnosis History of right shoulder replacement- Primary documented in this encounter [facility] HealthcareEvaluation note* Diagnosis Essential hypertension (CMS/HCC) Unspecified essential hypertension documented in this encounter [facility] HealthcareEvaluation note* Diagnosis Onset Date Resolution Status Arthropathy of right hip acu te Cervical disc disorder at C5-C6 level with radiculopat hy acute Pain of left sacroiliac joint acute Pain of right sacroiliac joint acute Trochanteric bursitis of both hips acute [facility] Work Phone: Evaluation note* Diagnosis Onset Date Resolution Status Arthropathy of right hip acu te Cervical disc disorder at C5-C6 level with radiculopat hy acute Pain of left sacroiliac joint acute Pain of right sacroiliac joint acute Trochanteric bursitis of both hips acute Osteoarthritis of spine with radiculopathy, lumbar region acute Other chronic pain acute Spinal stenosis acute [facility] Work Phone: Evaluation note* Diagnosis Onset Date Resolution Status Arthropathy of right hip acu te Cervical disc disorder at C5-C6 level with radiculopat hy acute Pain of left sacroiliac joint acute Pain of right sacroiliac joint acute Trochanteric bursitis of both hips acute Osteoarthritis of spine with radiculopathy, lumbar region acute Other chronic pain acute Spinal stenosis acute Osteoarthritis of spine with radiculopathy, lumbar region acute Other chronic pain acute Spinal stenosis acute [facility] Work Phone: Evaluation note* Diagnosis Onset Date Resolution Status Arthropathy of right hip acu te Cervical disc disorder at C5-C6 level with radiculopat hy acute Pain of left sacroiliac joint acute Pain of right sacroiliac joint acute Trochanteric bursitis of both hips acute Osteoarthritis of spine with radiculopathy, lumbar region acute Other chronic pain acute Spinal stenosis acute Osteoarthritis of spine with radiculopathy, lumbar region acute Other chronic pain acute Spinal stenosis acute Arthropathy of right hip acu te Pain of left sacroiliac joint acute Pain of right sacroiliac joint acute Trochanteric bursitis of both hips acute [facility] Work Phone: evaluation note* Diagnosis Onset Date Resolution Status Arthropathy of right hip acu te Cervical disc disorder at C5-C6 level with radiculopat hy acute Pain of left sacroiliac joint acute Pain of right sacroiliac joint acute Trochanteric bursitis of both hips acute Osteoarthritis of spine with radiculopathy, lumbar region acute Other chronic pain acute Spinal stenosis acute Osteoarthritis of spine with radiculopathy, lumbar region acute Other chronic pain acute Spinal stenosis acute Arthropathy of right hip acu te Pain of left sacroiliac joint acute Pain of right sacroiliac joint acute Trochanteric bursitis of both hips acute Osteoarthritis of spine with radiculopathy, lumbar region acute Other chronic pain acute Spinal stenosis acute [facility] Work Phone: Evaluation note* Diagnosis Essential hypertension (CMS/HCC) Unspecified essential hypertension documented in this encounter [facility] HealthcareEvaluation note* Diagnosis History of right shoulder replacement- Primary Pain, joint, shoulder, left documented in this encounter [facility] HealthcareEvaluation note* Diagnosis Medicare annual wellness visit, initial- Primary Rheumatoid arthritis of unspecified wrist with involvement of other organs and systems (CMS/HCC) Cervical stenosis of spinal canal Spinal stenosis in cervical region Screening for lipid disorders Screening for heart disease Screening for other and unspecified cardiovascular conditions Encounter for screening mammogram for malignant neoplasm of breast Primary insomnia Persistent disorder of initiating or maintaining sleep Essential hypertension (CMS/HCC) Unspecified essential hypertension Panic disorder (CMS/HCC) Panic disorder without agoraphobia Mild episode of recurrent major depressive disorder (HCC) ([facility]/HCC) Anxiety Anxiety state, unspecified Mixed hyperlipidemia (CMS/HCC) Mixed hyperlipidemia Rheumatoid arthritis, involving unspecified site, unspecified whether rheumatoid factor present ([facility]/HCC) Arthritis Unspecified arthropathy, site unspecified documented in this encounter [facility] HealthcareHospital course Narrative No data available for this section [facility] No data available for this section [facility] Dis[facility] instructionsAmbulatory Orders* Referral to Pain Management Location: None [facility] Work Phone: Progress note No data available for this section [facility] Summary Purpose Family History No Family History Records Found Relationship Condition Age at Onset Recorded Date/T mary mother Arthritis Unknown Hypertension Unknown father Malignant neoplasm of skin Unknown Dementia Unknown Advance Directives No Advanced Directives Records Found Advance Directive Response Recorded Date/ Time Advance Directives No March 09, 2022 10:31am Advance Directive Response Recorded Date/ Time Advance Directives No February 21 12:40pm Chief Complaint and Reason for Visit Chief Complaint M75.102 M19.012 [id number]. [id number] Chief Complaint OA/PMR/MEDS Chief Complaint Abn liver fxn studie s Meds Chief Complaint DDD -LUMBAR Reason for Visit Arthropathy of right hip Cervical disc disorder at C5-C6 level with radiculopathy Pain of left sacroiliac joint Pain of right sacroiliac joint Trochanteric bursitis of both hips Chief Complaint DDD -LUMBAR M54.2 Reason for Visit Arthropathy of right hip Cervical disc disorder at C5-C6 level with radiculopathy Pain of left sacroiliac joint Pain of right sacroiliac joint Trochanteric bursitis of both hips Chief Complaint DDD -LUMBAR M54.2 [employer] BY DR RODERICK BETTS Reason for Visit Arthropathy of right hip Cervical disc disorder at C5-C6 level with radiculopathy Pain of left sacroiliac joint Pain of right sacroiliac joint Trochanteric bursitis of both hips Chief Complaint DDD -LUMBAR M54.2 [employer] REFF BY DR RODERICK BETTS N95.1 Reason for Visit Arthropathy of right hip Cervical disc disorder at C5-C6 level with radiculopathy Pain of left sacroiliac joint Pain of right sacroiliac joint Trochanteric bursitis of both hips Osteoarthritis of spine with radiculopathy, lumbar region Other chronic pain Spinal stenosis Chief Complaint DDD -LUMBAR M54.2 [employer] REFF BY DR RODERICK BETTS N95.1 LUMBAR PAIN LUMBAR PAIN Reason for Visit Arthropathy of right hip Cervical disc disorder at C5-C6 level with radiculopathy Pain of left sacroiliac joint Pain of right sacroiliac joint Trochanteric bursitis of both hips Osteoarthritis of spine with radiculopathy, lumbar region Other chronic pain Spinal stenosis Chief Complaint DDD -LUMBAR M54.2 [employer] REFF BY DR RODERICK BETTS N95.1 LUMBAR PAIN LUMBAR PAIN F/U RIGHT LUMBAR TRANSFORAMINAL EPIDURAL INJECTION G89.29 - Other chronic pain Reason for Visit Arthropathy of right hip Cervical disc disorder at C5-C6 level with radiculopathy Pain of left sacroiliac joint Pain of right sacroiliac joint Trochanteric bursitis of both hips Osteoarthritis of spine with radiculopathy, lumbar region Other chronic pain Spinal stenosis Osteoarthritis of spine with radiculopathy, lumbar region Other chronic pain Spinal stenosis Chief Complaint DDD -LUMBAR M54.2 [employer] REFF BY DR RODERICK BETTS N95.1 LUMBAR PAIN LUMBAR PAIN F/U RIGHT LUMBAR TRANSFORAMINAL EPIDURAL INJECTION G89.29 - Other chronic pain follow up after injection Reason for Visit Arthropathy of right hip Cervical disc disorder at C5-C6 level with radiculopathy Pain of left sacroiliac joint Pain of right sacroiliac joint Trochanteric bursitis of both hips Osteoarthritis of spine with radiculopathy, lumbar region Other chronic pain Spinal stenosis Osteoarthritis of spine with radiculopathy, lumbar region Other chronic pain Spinal stenosis Arthropathy of right hip Pain of left sacroiliac joint Pain of right sacroiliac joint Trochanteric bursitis of both hips Chief Complaint DDD -LUMBAR M54.2 [employer] REFF BY DR RODERICK BETTS N95.1 LUMBAR PAIN LUMBAR PAIN F/U RIGHT LUMBAR TRANSFORAMINAL EPIDURAL INJECTION G89.29 - Other chronic pain follow up after injection DISCUSS SACROILIAC INJECTIONS Reason for Visit Arthropathy of right hip Cervical disc disorder at C5-C6 level with radiculopathy Pain of left sacroiliac joint Pain of right sacroiliac joint Trochanteric bursitis of both hips Osteoarthritis of spine with radiculopathy, lumbar region Other chronic pain Spinal stenosis Osteoarthritis of spine with radiculopathy, lumbar region Other chronic pain Spinal stenosis Arthropathy of right hip Pain of left sacroiliac joint Pain of right sacroiliac joint Trochanteric bursitis of both hips Osteoarthritis of spine with radiculopathy, lumbar region Other chronic pain Spinal stenosis Additional Source Comments INFORMATION SOURCE (unrecogn ized section and content) DATE CREATED AUTHOR 12/10/2021 [facility] DATE CREATED AUTHOR AUTHOR'S ORGANIZ ATION 09/22/2022 [facility] dical Specialist DATE CREATED AUTHOR AUTHOR'S ORGANIZ ATION 10/08/2022 [facility] of [facility] DATE CREATED AUTHOR AUTHOR'S ORGANIZ ATION 12/18/2023 [facility] DATE CREATED AUTHOR AUTHOR'S ORGANIZ ATION 04/08/2024 [facility] DATE CREATED AUTHOR AUTHOR'S ORGANIZ ATION 09/12/2024 [facility] EPIC Care Teams (unrecognized sec tion and content) Team Status: Inactive Member Role Status Dates Gregg Alanis DO Attending Provider Active Team Status: Inactive Member Role Status Dates Phill Yates MD Attending Provider Active Team Status: Active Member Role Status Dates JAYJAY Guo Primary Care Provider Active Team Status: Inactive Member Role Status Dates Hugo Yates MD Attending Provider Active JAYJAY Guo Primary Care Provider Active Team Status: Inactive Member Role Status Dates JAYJAY Guo Primary Care Provider Active Hugo Yates MD Attending Provider Active Junior Systems Administrator Relationship Specialty Start Date End Date Sabrina Loyd MD [address] [place] [address] PCP - [facility] Family Medicine 12/06/22 Junior Systems Administrator Relationship Specialty Start Date End Date Sabrina Loyd MD [address] [place] [id number] PCP - General Family Medicine 12/06/22 Team Status: Inactive Member Role Status Breanna Hermosillo [employer] Primary Care Provider Active Start: February 22, 2024 End: February 22, 2024 Roderick Betts MD Attending Provider Active Star t: February 22, 2024 End: February 22, 2024 Team Status: Inactive Member Role Status Breanna Hermosillo [employer] Primary Care Provider Active Start: February 29, 2024 End: February 29, 2024 Roderick Betts MD Attending Provider Active Star t: February 29, 2024 End: February 29, 2024 Team Status: Inactive Member Role Status Breanna Hermosillo NP-C Primary Care Provider Active Start: March 04, 2024 End: March 04, 2024 Miguel Trinidad MD Attending Provider Active Sta rt: March 04, 2024 End: March 04, 2024 Roderick Betts MD Referring Provider Active Star t: March 04, 2024 End: March 04, 2024 Team Status: Inactive Member Role Status Breanna Hermosillo [employer] Primary Care Provider Active Start: March 08, 2024 End: March 08, 2024 Roderick Betts MD Attending Provider Active Star t: March 08, 2024 End: March 08, 2024 Team Status: Inactive Member Role Status Breanna Hermosillo NP-C Primary Care Provider Active Start: March 19, 2024 End: March 19, 2024 Miguel Trinidad MD Attending Provider Active Sta rt: March 19, 2024 End: March 19, 2024 Team Status: Active Member Role Status Breanna Hermosillo NP-C Primary Care Provider Active Start: March 19, 2024 Miguel Trinidad MD Attending Provider, Other Provider Active Start: March 19, 2024 Team Status: Inactive Member Role Status Breanna Hermosillo NP-C Primary Care Provider Active Start: March 26, 2024 End: March 26, 2024 Miguel Trinidad MD Attending Provider Active Sta rt: March 26, 2024 End: March 26, 2024 Team Status: Active Member Role Status Dates Miguel Trinidad MD Attending Provider Active Sta rt: March 26, 2024 JAYJAY Guo Primary Care Provider Active Start: March 26, 2024 Team Status: Inactive Member Role Status Dates Miguel Trinidad MD Attending Provider Active Sta rt: March 26, 2024 End: March 26, 2024 JAYJAY Guo Primary Care Provider Active Start: March 26, 2024 End: March 26, 2024 Team Status: Inactive Member Role Status Dates JAYJAY Guo Primary Care Provider Active Start: April 04, 2024 End: April 04, 2024 Roderick Betts MD Attending Provider Active Star t: April 04, 2024 End: April 04, 2024 Team Status: Inactive Member Role Status Dates JAYJAY Guo Primary Care Provider Active Start: April 15, 2024 End: April 15, 2024 Miguel Trinidad MD Attending Provider Active Sta rt: April 15, 2024 End: April 15, 2024 Junior Systems Administrator Relationship Specialty Start Date End Date Sabrina Loyd MD [address] [place] [address] PCP - General Family Medicine 12/06/22 Junior Systems Administrator Relationship Specialty Start Date End Date Sabrina Loyd MD [address] [place] [address] PCP - General Family Medicine 12/06/22 Junior Systems Administrator Relationship Specialty Start Date End Date Sabrina Lody MD [address] [place] [address] PCP - General Family Medicine 12/06/22 Junior Systems Administrator Relationship Specialty Start Date End Date Sabrina Loyd MD [address] [place] [address] PCP - General Family Medicine 12/06/22 Goals (unrecognized section and content) Goals may be documented in a n alternate section No data available for this sectionGoals may be documented in an alternate sectionGoals may be documented in an alternate sectionGoals may be documented in an alternate section No data available for this section No data available for this section No data available for this section No data available for this section No data available for this sectionGoals may be documented in an alternate sectionGoals may be documented in an alternate sectionGoals may be documented in an alternate sectionGoals may be documented in an alternate section Reason for Visit (unrecogniz ed section and content) Reason Comments Post-op Reason Onset Date Comments Med Refill 09/02/2023 Reason Comments Med Refill Reason Comments Follow-up R Rev TSA 07/19/23 Follow-up L Rev TSA 09/28/22 Reason Comments Immunizations Declines at this suzan e Med Refill Amlodipine, prozac 1 0 mg and 20 mg Breast Cancer Screening Would like a ref erral for mammogram [facility] FOR RECORDS PERTAINING TO PATIENTS WHO ARE OR HAVE BEEN ENROLLED IN A CHEMICAL DEPENDENCY/SUBSTANCEABUSE PROGRAM, SOME INFORMATION MAY BE OMITTED. This clinical summary was aggregated from multiple sources. Caution should be exercised in using it in the provision of clinical care. This summary normalizes information from multiple sources, and as a consequence, information in this document may materially change the coding, format and clinical context of patient data. In addition, data may be omitted in some cases. CLINICAL DECISIONS SHOULD BE BASED ON THE PRIMARY CLINICAL RECORDS. [facility]. provides no warranty or guarantee of the accuracy or completeness of information in this document.
--- NOTE | 2024-09-25 07:34 | MM_ITS ---
Patient Name: ERNST VEGA MR#: [id number] : 1965 Exam Date: 09/25/2024 Ordering Doctor: Dian Singh RADIOLOGY REPORT PROCEDURE: MM TOMOSYNTHESIS SCREENING BI COMPARISON: MG MAMM SCREEN 3D PARISA CAD, 12/06/2021. MG MAMM SCREEN PARISA W CAD, 08/23/2018. MG MAMM PARISA SCRN W CAD DIG, 07/15/2016. MG MAMM PARISA SCRN W CAD DIG, 04/02/2013. INDICATIONS: Screening Calculator Name NCI Breast Cancer Risk Assessment Tool 5 Year Breast Cancer Risk 1.90% Lifetime Breast Cancer Risk 8.90% Personal Breast Cancer No Personal Ovarian Cancer No Treatments None Family Cancers None LOCATION: [facility] BREAST COMPOSITION: There are scattered areas of fibroglandular density. FINDINGS: RIGHT BREAST: No significant suspicious finding. There are few punctate benign-appearing calcifications. LEFT BREAST: No significant suspicious finding. Benign-appearing lymph nodes are noted along the left chest wall. DIAGNOSTIC CATEGORY 2--BENIGN FINDING. NO CHANGE FROM COMPARISON. RECOMMENDATIONS: ROUTINE MAMMOGRAM AND CLINICAL EVALUATION IN 12 MONTHS. PLEASE NOTE: A NORMAL MAMMOGRAM DOES NOT EXCLUDE THE POSSIBILITY OF BREAST CANCER. A CLINICALLY SUSPICIOUS PALPABLE LUMP SHOULD BE BIOPSIED. Dictated by: Flavio Griffith MD on 09/25/2024 at 11:38 Approved by: Flavio Griffith MD on 09/25/2024 at 11:40
[2024-09-25 08:47] LABS: Alanine Aminotransferase 21 U/L (14-59); Albumin Level 3.4 g/dL (3.4-5.0); Alkaline Phosphatase 149 U/L (46-116); Anion Gap 12.5; Aspartate Amino Transferase 19 U/L (15-37); BUN Creatinine Ratio 16.2; Bilirubin Total 0.3 mg/dL (0.2-1.0); Calcium 8.7 mg/dL (8.5-10.1); Carbon Dioxide 27.1 mmol/L (21.0-32.0); Chloride 103 mmol/L (98-107); Chol HDL Ratio 3.3; Cholesterol 213 mg/dL (<=200); Estimated GFR (African America >60 (>=60 mL/min/1.73m^2); Estimated GFR (Non-African Ame 53 (>=60 mL/min/1.73m^2); Globulin 3.5 g/dL; Glucose 94 mg/dL (74-106); HDL Cholesterol 64 mg/dL (40-60); Potassium 3.6 mmol/L (3.5-5.1); Sodium 139 mmol/L (136-145); Total Protein 6.9 g/dL (6.4-8.2); Triglycerides 134 mg/dL (<=150); VLDL CHOLESTEROL 26.8 mg/dL
== END 2024-09-25 07:19 | disposition home or self-care (01) ==
LOC: MAMMO 07:21
PROVIDERS: Visit Provider Nurse Practitioner Family
DX: Z00.00 Encounter for general adult medical examination without abnormal findings (principal); Z12.31 Encounter for screening mammogram for malignant neoplasm of breast; Z13.220 Encounter for screening for lipoid disorders; Z13.6 Encounter for screening for cardiovascular disorders; I10 Essential (primary) hypertension; E78.2 Mixed hyperlipidemia
CPT/HCPCS: 36415; 77063; 77067; 80053; 80061